=== PATIENT | female | born 1965 | race American Indian/Alaskan Native ===

== ENCOUNTER 2017-04-06 09:30 | Emergency (ER) | payer MEDICARE ==
[2017-04-06 09:46] VITALS: O2SAT 100
--- NOTE | 2017-04-06 10:38 | C.PDOC ---
History Of Present Illness 52 yo female w/PMHx of ESRD on HD (, , ), come in for evaluation of Left sided left neck pain gradually developed for past 3 days. Pt sts, pain is localized, " fells like tightness, spasm" over left occipital area extends down to left upper back and worse with head rotation. Pt sts, "today woke up and was unable to turn my head due to pain". Otherwise, pt denies any known trauma or injury, fever, chills, headache, dizziness, vertigo, CP, SOB, dyspnea, diaphoresis, palpitation, abd. pain, N/V, denies weakness, sensory or vascular deficits to B/L UEs. At present time, appears in pain. Time Seen by Provider: 04/06/17 09:47 Chief Complaint (Nursing): Upper Extremity Problem/Injury History Per: Patient Onset/Duration Of Symptoms: Gradual Past Medical History Reviewed: Historical Data, Nursing Documentation, Vital Signs Vital Signs: Last Vital Signs Temp 98.3 F 04/06/17 12:25 Pulse 70 04/06/17 12:25 Resp 16 04/06/17 12:25 BP 158/76 H 04/06/17 12:25 Pulse Ox 100 04/06/17 12:28 - Medical History PMH: Asthma, HTN, End Stage Renal Disease (HD T/R/), Chronic Kidney Disease Surgical History: Family History: States: Unknown Family Hx - Social History Hx Tobacco Use: No Hx Alcohol Use: No Hx Substance Use: No - Immunization History Hx Tetanus Toxoid Vaccination: No Hx Influenza Vaccination: Yes Hx Pneumococcal Vaccination: Yes Review Of Systems Except As Marked, All Systems Reviewed And Found Negative. Constitutional: Negative for: Fever, Chills Eyes: Negative for: Vision Change ENT: Negative for: Throat Pain Cardiovascular: Negative for: Chest Pain, Palpitations, Orthopnea, Paroxysmal Noc. Dyspnea, Edema, Light Headedness Respiratory: Negative for: Cough, Shortness of Breath, Wheezing Gastrointestinal: Negative for: Nausea, Vomiting, Abdominal Pain Musculoskeletal: Positive for: Neck Pain Skin: Negative for: Rash, Bruising Neurological: Negative for: Weakness, Numbness, Altered Mental Status, Dizziness Physical Exam - Physical Exam Appears: Well, Non-toxic, No Acute Distress Skin: Normal Color, Warm, No Rash Head: Normacephalic Eye(s): bilateral: PERRL Oral Mucosa: Moist Neck: Decreased ROM (to B/L sides due to pain), Trachea Midline, No Midline Cervical Tenderness, Paracervical Tenderness (diffuse left sided extends rom left occipital area down to left upepr back with moderate muscle spasm . No midline tenderness, no skin changes.), No Step Off Deformity, Supple Cardiovascular: Rhythm Regular, No JVD, Other ((-) carotid bruits B/L) Respiratory: No Decreased Breath Sounds, No Accessory Muscle Use, No Stridor, No Wheezing Gastrointestinal/Abdominal: Soft Extremity: Normal ROM (B/L UEs), No Pedal Edema, No Swelling, Other (Left upper arm AV shunt, (+) thrill, clean, dry, intact.) Neurological/Psych: Oriented x3, Normal Speech, Normal Motor, Normal Sensation, Normal Reflexes ED Course And Treatment O2 Sat by Pulse Oximetry: 100 Pulse Ox Interpretation: Normal - Other Rad C-spine X-Ray: Viewed By Me Interpretation: (+)DJD, mod, no acute fx or sublux Progress Note: On re-eval, pt is afebrile, hemodynamicaly stable. Pt reports, moderate improvement after ED treatment. Non-toxic. PuslEOx 100% RA. ENT: No acute findings. neck: Supple, (-) JVD, (-) carotid bruits B/L. Exam c/w Left sided acute torticolis. CVS: (+)S1S2, reg. Lungs: CTA B/L, BS equal B/L. Neuorlogicaly intact. Imaging review and appears without acute abnoramlities. Soft C-collar applied. Pt advised and ref. to f/u with PMD in 1-2 days for re- eavl. return to ED if any worsening ro new changes. Disposition Counseled Patient/Family Regarding: Studies Performed, Diagnosis, Need For Followup, Rx Given - Disposition Referrals: Indra Orantes MD [Staff Provider] - Disposition: HOME/ ROUTINE Disposition Time: 11:55 Condition: STABLE Additional Instructions: CERVICAL COLLAR FOR 1WEEK TAKE PAIN MEDICATION PRESCRIBED FOLLOW UP WITH PMD IN 2-3 DAYS FOR RE-EVALUATION. RETURN TO ED IF ANY WORSENING OR NEW CHANGES. Prescriptions: Methocarbamol [Robaxin] 500 mg PO TID #14 tab traMADol [Ultram] 50 mg PO TID #7 tab Instructions: Cervical Sprain (ED) Forms: [employer] ([place]) - Clinical Impression Clinical Impression: Torticollis, acute
[2017-04-06 12:27] VITALS: BP 158/76; PULSE 70; RESP 16; TEMP 98.3
--- NOTE | 2017-04-06 13:22 | RAD ---
PROCEDURE: Cervical Spine Radiographs. HISTORY: Pain. COMPARISON: None. FINDINGS: BONES: Alignment maintained. No fracture. Dens Intact. DISC SPACES: Mild multilevel spondylosis appears limited to the midcervical spine. SOFT TISSUES: Normal. No prevertebral soft tissue swelling. OTHER FINDINGS: Heterotopic bone posterior to C2 and C3 spinous processes. IMPRESSION: Limited degenerative changes seen as discussed above at the mid cervical spine without fracture or spondylolisthesis appreciable grossly. CT or MRI are available follow-up if clinically warranted. Heterotopic bone is seen posterior to the C2 and C3 spinous processes.
== END 2017-04-06 12:45 | disposition home or self-care (01) ==
LOC: C.ER 09:30
DX: M43.6 Torticollis (principal)

== ENCOUNTER 2017-08-09 06:09 | Day surgery (SDC) | payer MEDICARE ==
[2017-08-06 10:17] VITALS: BMI 20.9
[2017-08-09 09:06] LABS: BASO % 0.8 % (0.0-2.0); EOS # 0.2 K/uL (0.0-0.7); EOS % 2.7 % (0.0-4.0); HEMOGLOBIN 10.8 g/dL (11.0-16.0); LYMPH # 2.4 K/uL (1.0-4.3); LYMPH % 39.4 % (20.0-40.0); MEAN CELL VOLUME 97.1 fL (81.0-99.0); MEAN CORPUSCULAR HEMOGLOBIN 32.7 pg (27.0-31.0); MEAN CORPUSCULAR HGB CONC 33.7 g/dL (33.0-37.0); MEAN PLATELET VOLUME 9.5 fL (7.2-11.7); MONO # 0.6 K/uL (0.0-0.8); MONO % 9.3 % (0.0-10.0); NEUT % 47.8 % (50.0-75.0); RBC 3.32 Mil/uL (3.80-5.20); RED CELL DISTRIBUTION WIDTH 15.9 % (11.5-14.5); WHITE BLOOD COUNT 6.2 K/uL (4.8-10.8)
[2017-08-09 09:18] LABS: CALCIUM 8.2 mg/dl (8.6-10.4)
[2017-08-09] MEDS ORDERED: Midazolam 2 MG/2 ML VIAL ONE ×3 (09:41→09:42)
[2017-08-09] MEDS ORDERED: Iodixanol 320 MG/ML 200 ML BOTTLE IV ONE (09:42)
[2017-08-09] MEDS ORDERED: Iodixanol 320 MG/ML 100 ML BOTTLE IV ONE ×3 (09:42→11:31)
[2017-08-09] MEDS ORDERED: Lidocaine 2% Inj (20ml) ONE (09:42)
[2017-08-09] MEDS ORDERED: Morphine 4 MG/ML VIAL IV ONE (14:30)
[2017-08-09 17:28] VITALS: BP 123/69; PULSE 74; RESP 19; TEMP 97.6; O2SAT 100
--- NOTE | 2017-08-09 22:48 | CARDCATH ---
PROCEDURE DATE: 08/09/2017 INDICATIONS: Ms. Evy Landis is a 52-year-old female with a history of hypertension, CKD, referred to dc for evaluation of symptoms of severe claudication of left lower extremity with a Duplex scan showing severe popliteal lesion. She underwent angiogram with PSYCHOLOGIST CHIEF stenting of left distal SFA and popliteal with deployment of 6.0 x 60 mm Zilver PTX drug-eluting stent, lesion reduction from 80% down to 0% and STONE-3 flow, 6-Anguillan right femoral arterial access, and Mynx closure device for hemostasis. PROCEDURE PERFORMED: Distal abdominal aortogram with bilateral iliac runoff, selective bilateral iliofemoral angiogram with runoff, PSYCHOLOGIST CHIEF stenting of left SFA popliteal with the use of 6 x 60 mm Zilver PTX drug-eluting stent, lesion reduction from 80% down to 0% and STONE-3 flow, 6-Anguillan right femoral arterial access, and Mynx closure device for hemostasis. TECHNIQUES OF PROCEDURE: After obtaining informed consent, the patient was brought to the cardiac cath suite in post-absorptive, non-sedated state. The patient was prepped and draped in the usual sterile fashion. Then, 2% lidocaine was used for infiltration of anesthesia. Using modified Seldinger technique, a 6-Anguillan sheath was introduced into the right femoral artery. Right iliofemoral angiogram with runoff was performed. Subsequently, over a Roadrunner wire, a Contra catheter was advanced into the abdominal aorta. Abdominal aortogram with bilateral iliac runoff was performed. Subsequently, the Contra was advanced across the aortoiliac bifurcation to the left common femoral artery. Digital subtraction angiographic views of the left SFA, left popliteal, left [id number], and left foot profile was obtained. Subsequently, a Bozeman catheter was advanced over the Roadrunner UniGlide wire to the left popliteal artery and then selective popliteal angiograms were obtained. Angiographic findings of the right lower extremity, right common iliac and external iliac were patent. Right profunda femoris was patent. SFA patent with slow flow secondary to calcified vessel. Profunda SFA patent popliteal, infrapopliteal 65% stenosis, AT had distal 90%, proximal 80%, peroneal patent, PT diffuse long disease. Left common iliac and external iliac patent. Left profunda femoris patent. SFA patent with the distal SFA at the popliteal segment has 85% angiographic stenosis with 100 mm pressure gradient across it. Anterior tibial artery had mid 50% stenosis. Peroneal occluded, PT diffusely diseased, AT mid and distal has 70% to 80% stenosis. Dorsalis pedis occluded with collateral flow, superficial and deep plantar arches flow via the collaterals. Intervention performed, left popliteal wire and post dilated with 6 x 20 balloon. RECOMMENDATIONS: The patient is to keep on dual antiplatelet therapy. If she has recurrent symptoms, consider staged intervention of left anterior tibial artery below the knee intervention and reevaluate for right popliteal and right AMY lesions in 4 to [address] you [address] Jarvis for letting me to participate in the care of your patient. Braulio Bear MD
== END 2017-08-09 17:15 | disposition home or self-care (01) ==
LOC: C.SDS 06:09
PROVIDERS: ATTEND Internal Medicine Interventional Cardiology
DX: I70.212 Atherosclerosis of native arteries of extremities with intermittent claudication, left leg (principal); Z79.899 Other long term (current) drug therapy; Z87.891 Personal history of nicotine dependence; I12.0 Hypertensive chronic kidney disease with stage 5 chronic kidney disease or end stage renal disease; N18.6 End stage renal disease
CPT/HCPCS: 36247; 36415; 37226; 80048; 84702; 85025; J1170; J1644; J2250; J2270; J3010; Q9966; Q9967

== ENCOUNTER 2018-05-29 18:35 | Inpatient (IN) | payer MEDICAID, MEDICARE ==
[2018-05-29 18:36] VITALS: BMI 20.9
--- NOTE | 2018-05-29 19:14 | C.PDOC ---
History Of Present Illness 53 y/o female, who is on dialysis and has an old right arm AV fistula, presents to ED complaining of pain in the area for the past couple of days. Patient states that last dialysis was yesterday. Since pain started, patient noticed some pointing and tenderness, which prompted her to come in to ER. Otherwise she denies any other physical complaints. Time Seen by Provider: 05/29/18 19:14 Chief Complaint (Nursing): Upper Extremity Problem/Injury History Per: Patient History/Exam Limitations: no limitations Onset/Duration Of Symptoms: Days Current Symptoms Are (Timing): Still Present Past Medical History Reviewed: Historical Data, Nursing Documentation, Vital Signs Vital Signs: Last Vital Signs Temp 97.9 F 05/29/18 18:43 Pulse 80 05/29/18 18:43 Resp 18 05/29/18 18:43 BP 173/89 H 05/29/18 18:43 Pulse Ox 100 05/29/18 18:43 - Medical History PMH: Anemia, Asthma, HTN, End Stage Renal Disease (HD T/R/Sa), Chronic Kidney Disease Surgical History: Endoscopy, Family History: States: No Known Family Hx - Social History Hx Tobacco Use: No Hx Alcohol Use: No Hx Substance Use: No - Immunization History Hx Tetanus Toxoid Vaccination: No Hx Influenza Vaccination: Yes Hx Pneumococcal Vaccination: Yes Review Of Systems Except As Marked, All Systems Reviewed And Found Negative. Constitutional: Negative for: Fever, Chills Cardiovascular: Negative for: Chest Pain Respiratory: Negative for: Shortness of Breath Musculoskeletal: Positive for: Arm Pain (Right) Skin: Negative for: Rash Physical Exam - Physical Exam Appears: Non-toxic, No Acute Distress Skin: Warm, Dry, Other (Abscess forming in fistula area, warm and tender to palpation; has pointing but no drainage) Head: Atraumatic, Normacephalic Eye(s): bilateral: Normal Inspection Oral Mucosa: Moist Neck: Supple Cardiovascular: Rhythm Regular, No Murmur Respiratory: Normal Breath Sounds, No Rales, No Rhonchi, No Wheezing Extremity: Bilateral: Normal ROM Neurological/Psych: Oriented x3, Normal Speech, Normal Motor, Normal Sensation ED Course And Treatment - Laboratory Results Result Diagrams: 05/29/18 20:49 05/29/18 20:49 O2 Sat by Pulse Oximetry: 100 (RA) Pulse Ox Interpretation: Normal Progress Note: Bloodwork ordered. Percocet and vancomycin administered. Called surgical services coordinator who came and examined patient at bedside and contacted Dr. Cool. Discussed case with Dr. Cool who requested patient to be admitted to medical team. Discussed with Dr. Ventura who was the hospitalist police matron, who accepted patient to his service. Disposition - Disposition Disposition: HOSPITALIZED Disposition Time: 20:22 Condition: FAIR - Clinical Impression Clinical Impression: Dialysis AV fistula infection - PA / PUBLIC RELATIONS WRITER / Resident Statement MD/DO has reviewed & agrees with the documentation as recorded. - Scribe Statement The provider has reviewed the documentation as recorded by the Scribe Renay Chase All medical record entries made by the [place]vir[place]ie were at my direction and personally dictated by me. I have reviewed the chart and agree that the record accurately reflects my personal performance of the history, physical exam, medical decision making, and the department course for this patient. I have also personally directed, reviewed, and agree with the discharge instructions and disposition. Decision To Admit - Pt Status Changed To: Hospital Disposition Of: Inpatient - Admit Certification Admit to Inpatient:: After my assessment, the patient will require hospitalization for at least two midnights. This is because of the severity of symptoms shown, intensity of services needed, and/or the medical risk in this patient being treated as an outpatient. - InPatient: Physician Admission Certification: I certify that this patient requires 2 or more midnights of care for the following reason:: Patient will need IV antibiotics and surgical treatment - . Bed Request Type: Regular Admitting Physician: En Ventura Patient Diagnosis: Dialysis AV fistula infection
[2018-05-29] MEDS ORDERED: Vancomycin 1 GM 1 GM/250 ML BAG IV STA (20:14)
[2018-05-29] MEDS ORDERED: Oxycodone/Acetaminophen 5/325 mg Tab ONE (20:49)
[2018-05-29] MEDS ORDERED: Vancomycin 1 GM 1 GM/250 ML BAG IVPB ONE (20:52)
[2018-05-29 20:59] LABS: BASO % 0.5 % (0.0-2.0); EOS # 0.1 K/uL (0.0-0.7); EOS % 1.1 % (0.0-4.0); HEMOGLOBIN 10.4 g/dL (11.0-16.0); LYMPH # 1.6 K/uL (1.0-4.3); LYMPH % 22.9 % (20.0-40.0); MEAN CELL VOLUME 94.6 fL (81.0-99.0); MEAN CORPUSCULAR HEMOGLOBIN 31.2 pg (27.0-31.0); MEAN PLATELET VOLUME 8.7 fL (7.2-11.7); MONO # 0.5 K/uL (0.0-0.8); MONO % 7.6 % (0.0-10.0); NEUT # 4.7 K/uL (1.8-7.0); NEUT % 67.9 % (50.0-75.0); RBC 3.33 Mil/uL (3.80-5.20); RED CELL DISTRIBUTION WIDTH 15.9 % (11.5-14.5)
[2018-05-29 21:06] LABS: INR 1.2; PROTHROMBIN TIME 13.2 SECONDS (9.7-12.2)
[2018-05-29] MEDS ORDERED: Oxycodone/Acetaminophen 5/325 mg Tab PO STA (21:11)
[2018-05-29 21:17] LABS: ALB/GLOB RATIO 1.4 (1.0-2.1); ALBUMIN 4.7 g/dL (3.5-5.0); CALCIUM 7.3 mg/dl (8.6-10.4)
[2018-05-29] MEDS ORDERED: Sodium Chloride 0.9% 1,000 ML IV SCH (21:30)
[2018-05-29] MEDS ORDERED: Sodium Chloride 0.9% 1,000 ML ONE (22:44)
[2018-05-29] MEDS ORDERED: Albuterol HFA 90 mcg/actuation (8 g) IH PRN (23:08)
--- NOTE | 2018-05-30 00:09 | CP.PCM.HP ---
<Afshan Hahn Y - Last Filed: 05/29/18 23:54> History of Present Illness - History of Present Illness History of Present Illness: cc: "my old AVF hurts" Ms. Landis is a 53 year old female PMH ESRD, arthritis, hypertension, asthma, scoliosis comes in today for increasing pain at an old right arm AVF x4 days. She noticed there was a pimple like growth about a week ago. On Carmen, 4 days ago, she knocked the tip. A scab fell off without bleeding or pus. Since then, another scab formed over the opening, but the area has been increasingly painful to a 8/10 today. The area that has been tender to touch has grown from just the scab to about a 2cm diameter. She has no other physical complaints. Denies fever, chills, nausea, vomiting, constipation, diarrhea, chest pain, shortness of breath, headache. She follows a e/Carmen/Sat HD schedule and last had dialysis on Sat as scheduled. PMD: Dr. Mario Vaz PMH: ESRD x 2 kidney transplants, arthritis, HTN, asthma, scoliosis Med: Plavix, ASA, Carvedilol, Calcitriol, Phoslo, Percocet all at unknown dosages. Amlodipine recently stopped All: Latex - unknown reaction PSxHx: Kidney transplants (1998, 2008), 1985, Parathyroidectomy, Femoral stent FamHx: Father-DM, sister-DM, sister- from AIDS, Mom-alcohol abuse, breast CA on both sides of the family SocHx: quit smoking 23 years ago, smoked 2.5 ppd. Denies alcohol, illicit drugs. 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 Proxy: Son John Landis cell: [phone], home: [phone] Full Code Present on Admission - Present on Admission Any Indicators Present on Admission: No Review of Systems - Constitutional Constitutional: absent: Chills, Excessive Sweating, Fever, Headache, Lethargy, Malaise, Weakness - EENT Eyes: absent: Blind Spots, Blurred Vision, Diplopia, Dry Eye, Pain Ears: absent: Decreased Hearing, Tinnitus, Dizziness Nose/Mouth/Throat: absent: Nasal Discharge, Sinus Pressure, Bleeding Gums, Dry Mouth, Dysphagia, Hoarsness, Odynophagia, Sore Throat, Throat Swelling, Neck Pain - Cardiovascular Cardiovascular: Dyspnea on Exertion. absent: Chest Pain, Chest Pain with Activity, Diaphoresis, Dyspnea, Edema, Irregular Heart Rhythm, Pain Radiating to Arm/Neck/Jaw, Leg Edema, Lightheadedness, Orthopnea, Palpitations, Pedal Edema, Syncope - Respiratory Respiratory: Dyspnea on Exertion. absent: Cough, Dyspnea, Wheezing - Gastrointestinal Gastrointestinal: absent: Abdominal Pain, Belching, Bloating, Change in Bowel Habits, Constipation, Cramping, Diarrhea, Dyspepsia, Dysphagia, Nausea, Odynophagia, Vomiting - Genitourinary Additional comments: ESRD, does not urinate - Integumentary Integumentary: Wounds. absent: Dry Skin, Lesions, Photosensitivity, Rash, Sores - Neurological Neurological: absent: Abnormal Hearing, Disequilibrium, Dizziness, Numbness, Headaches, Paresthesias, Syncope, Tingling, Vertigo, Weakness - Psychiatric Psychiatric: absent: Anxiety, Depression - Endocrine Endocrine: absent: Cold Intolorance, Fatigue, Heat Intolorance, Palpitations - Hematologic/Lymphatic Hematologic: absent: Easy Bleeding, Easy Bruising Past Patient History - Past Medical History & Family History Past Medical History?: Yes Pertinent Family History: Father-DM, sister-DM, sister- from AIDS, Mom-alcohol abuse, breast CA on both sides of the family - Past Social History Smoking Status: Former Smoker Alcohol: None Drugs: Denies - CARDIAC Hx Hypertension: Yes - PULMONARY Hx Asthma: Yes - NEUROLOGICAL Hx Neurological Disorder: No - HEENT Hx HEENT Problems: No - RENAL Hx Chronic Kidney Disease: Yes - ENDOCRINE/METABOLIC Hx Endocrine Disorders: No - HEMATOLOGICAL/ONCOLOGICAL Hx Anemia: Yes - INTEGUMENTARY Hx Dermatological Problems: Yes (DISCOLORED LOWER EXTREMITIES) - MUSCULOSKELETAL/RHEUMATOLOGICAL Hx Musculoskeletal Disorders: Yes (MUSCLE SPASMS NECK) Hx Osteoarthritis: Yes Other/Comment: SCIOLOSIS - GASTROINTESTINAL Hx Gastrointestinal Disorders: No - GENITOURINARY/GYNECOLOGICAL Hx Genitourinary Disorders: Yes (ANURIA) - PSYCHIATRIC Hx Substance Use: No - SURGICAL HISTORY Hx Surgeries: Yes Hx Kidney Transplant: Yes (X 2) Hx Vascular Surgery: Yes (FISTULA LEFT ARM) Hx Vascular Access Device: Yes Other/Comment: FISTULA RIGHT ARM - ANESTHESIA Hx Anesthesia: Yes Hx Anesthesia Reactions: No Hx Malignant Hyperthermia: No Meds Allergies/Adverse Reactions: Allergies Allergy/AdvReac Type Severity Reaction Status Date / Time latex Allergy Intermediate RASH Verified 05/29/18 18:42 Physical Exam - Constitutional Appears: Well, Non-toxic - Head Exam Head Exam: ATRAUMATIC, NORMOCEPHALIC - Eye Exam Eye Exam: EOMI, Normal appearance, PERRL Pupil Exam: NORMAL ACCOMODATION Additional comments: glasses - ENT Exam ENT Exam: Mucous Membranes Dry - Neck Exam Neck exam: Negative for: Lymphadenopathy, Thyromegaly - Respiratory Exam Respiratory Exam: NORMAL BREATHING PATTERN. absent: Accessory Muscle Use, Rhonchi, Wheezes Additional comments: mild rales at R lung base - Cardiovascular Exam Cardiovascular Exam: REGULAR RHYTHM, +S1, +S2 Additional comments: audible bruit and palpable thrill in L AVF - GI/Abdominal Exam GI & Abdominal Exam: Normal Bowel Sounds, Soft. absent: Distended, Firm, Guarding, Rigid, Tenderness - Extremities Exam Extremities exam: Positive for: normal capillary refill, pedal pulses present. Negative for: calf tenderness, joint swelling, tenderness Additional comments: peripheral pulses palpable bilaterally (radial, DP, PT) two old R arm AVF, matured L arm AVF - Back Exam Back exam: absent: CVA tenderness (L), CVA tenderness (R) - Neurological Exam Neurological exam: Alert, CN II-XII Intact, Oriented x3 - Psychiatric Exam Psychiatric exam: Normal Affect, Normal Mood - Skin Skin Exam: Dry, Normal Color, Warm Additional comments: hands and feet cold to touch two bumps on R forearm. more proximal bump has edema, without erythema. Head has encased fluid buildup, TTP Results - Vital Signs Recent Vital Signs: Last Vital Signs Temp 98.6 F 05/29/18 22:35 Pulse 76 05/29/18 22:35 Resp 18 05/29/18 22:35 BP 133/73 05/29/18 22:35 Pulse Ox 99 05/29/18 22:35 - Labs Result Diagrams: 05/29/18 20:49 05/29/18 20:49 Labs: Laboratory Results - last 24 hr 05/29/18 05/29/18 05/29/18 20:49 20:49 20:49 WBC 7.0 RBC 3.33 L Hgb 10.4 L Hct 31.5 L MCV 94.6 D MCH 31.2 H MCHC 33.0 RDW 15.9 H Plt Count 146 MPV 8.7 Neut % (Auto) 67.9 Lymph % (Auto) 22.9 [place] % (Auto) 7.6 Eos % (Auto) 1.1 Baso % (Auto) 0.5 Neut # (Auto) 4.7 Lymph # (Auto) 1.6 [place] # (Auto) 0.5 Eos # (Auto) 0.1 Baso # (Auto) 0.0 PT 13.2 H INR 1.2 APTT 37 H Sodium 140 Potassium 4.8 Chloride 93 L Carbon Dioxide 24 Anion Gap 28 H BUN 54 H Creatinine 8.2 H* Est GFR ( Amer) 6 Est GFR (Non-Af Amer) 5 Random Glucose 113 H Calcium 7.3 L Total Bilirubin 0.6 AST 19 ALT 20 Alkaline Phosphatase 60 Total Protein 8.1 Albumin 4.7 Globulin 3.3 Albumin/Globulin Ratio 1.4 Assessment & Plan - Assessment and Plan (Free Text) Assessment: 53yo F PMH ESRD s/p kidney transplant x2, arthritis, h ypertension, asthma, scoliosis admitted for abscess of old R arm AVF. Plan: Abscess of old R arm AVF - WBC 7.0 - PT 13.2 INR 1.2 PTT 37 - BUN 54 Cr 8.2 - Vanco 1g IVPB daily (started 05/29 in ED) - NS@75 - f/u EKG and CXR for Sx clearance - f/u blood Cx (05/29) - Vasc Surgery consulted: Dr. Cool - help appreciated - NPO@MN for OR in AM ESRD - Patient is on TTS HD schedule - Nephro consulted: Dr. Orantes - help appreciated Hypertension - home Carvedilol - home Amlodipine recently discontinued by PMD - call [facility] to confirm dosing of medications - monitor vitals Arthritis - home Percocet 1 tab po qid prn - call [facility] to confirm dosing Asthma - home Ventolin prn PPx - DVT: AC CI for vascular bleed and OR mireille, SCDs - GI: not indicated at this time - Diet: NPO@MN except meds for OR in AM d/w Dr. Audrey Hahn PGY-1 - Date & Time Date: 05/29/18 Time: 21:30 <En Ventura - Last Filed: 05/30/18 06:23> Results - Vital Signs Recent Vital Signs: Last Vital Signs Temp 98 F 05/30/18 02:31 Pulse 70 05/30/18 02:31 Resp 18 05/30/18 02:31 BP 136/69 05/30/18 02:31 Pulse Ox 99 05/30/18 02:31 - Labs Result Diagrams: 05/29/18 20:49 05/29/18 20:49 Labs: Laboratory Results - last 24 hr 05/29/18 05/29/18 05/29/18 20:49 20:49 20:49 WBC 7.0 RBC 3.33 L Hgb 10.4 L Hct 31.5 L MCV 94.6 D MCH 31.2 H MCHC 33.0 RDW 15.9 H Plt Count 146 MPV 8.7 Neut % (Auto) 67.9 Lymph % (Auto) 22.9 [place] % (Auto) 7.6 Eos % (Auto) 1.1 Baso % (Auto) 0.5 Neut # (Auto) 4.7 Lymph # (Auto) 1.6 [place] # (Auto) 0.5 Eos # (Auto) 0.1 Baso # (Auto) 0.0 PT 13.2 H INR 1.2 APTT 37 H Sodium 140 Potassium 4.8 Chloride 93 L Carbon Dioxide 24 Anion Gap 28 H BUN 54 H Creatinine 8.2 H* Est GFR ( Amer) 6 Est GFR (Non-Af Amer) 5 Random Glucose 113 H Calcium 7.3 L Total Bilirubin 0.6 AST 19 ALT 20 Alkaline Phosphatase 60 Total Protein 8.1 Albumin 4.7 Globulin 3.3 Albumin/Globulin Ratio 1.4 Assessment & Plan - Date & Time Date: 05/30/18 (I have seen and examined the patient. I agree with the findings and plan of care as documented by Dr. Hahn. Patient with abscess at AV fistula site. Consult to Dr. Cool. Kermito for now. ESRD on dialysis. Consult to nephro. History of hypertension. Continue home meds. Monitor for acute changes.) Time: 06:22 Attending/Attestation - Attestation I have personally seen and examined this patient.: Yes I have fully participated in the care of the patient.: Yes I have reviewed all pertinent clinical information: Yes
[2018-05-30] MEDS ORDERED: Oxycodone/Acetaminophen 5/325 mg Tab ONE ×2 (02:31→08:26)
[2018-05-30] MEDS: Oxycodone/Acetaminophen 5/325 mg Tab PO PRN ×2 (02:33→08:30)
--- NOTE | 2018-05-30 05:13 | CP.PCM.CON ---
History of Present Illness - History of Present Illness History of Present Illness: Vascular Surgery Consult Note for Dr. Cool cc:Infected unused AVF This is a 53F with a PMH of ESRD, arthritis, hypertension, asthma, scoliosis she presented due to a 4 day history of pain and fluctuance of her right non functional AVF. The pain started about a week ago she noticed a smal break on the skin on the skin with a scab.l she accidentally unroofed the scab andthe leasion came to a head. She reports significantly increased tenderness at the site. She denies any discharge fevers chills chest pain or SOB. PMH: ESRD x 2 kidney transplants, arthritis, HTN, asthma, scoliosis PSH: Kidney transplants (1998, 2008), 1985, Parathyroidectomy, Femoral stent All: Latex Social: quit smoking 23 years ago, smoked 2.5 ppd. Denies other vices Review of Systems - Review of Systems Review of Systems: 12 point review of symptoms conducted and negative except for where discussed above Past Patient History - Past Medical History & Family History Past Medical History?: Yes - Past Social History Smoking Status: Former Smoker Alcohol: None Drugs: Denies - CARDIAC Hx Hypertension: Yes - PULMONARY Hx Asthma: Yes - NEUROLOGICAL Hx Neurological Disorder: No - HEENT Hx HEENT Problems: No - RENAL Hx Chronic Kidney Disease: Yes - ENDOCRINE/METABOLIC Hx Endocrine Disorders: No - HEMATOLOGICAL/ONCOLOGICAL Hx Anemia: Yes - INTEGUMENTARY Hx Dermatological Problems: Yes (DISCOLORED LOWER EXTREMITIES) - MUSCULOSKELETAL/RHEUMATOLOGICAL Hx Musculoskeletal Disorders: Yes (MUSCLE SPASMS NECK) Hx Osteoarthritis: Yes Other/Comment: SCIOLOSIS - GASTROINTESTINAL Hx Gastrointestinal Disorders: No - GENITOURINARY/GYNECOLOGICAL Hx Genitourinary Disorders: Yes (ANURIA) - PSYCHIATRIC Hx Substance Use: No - SURGICAL HISTORY Hx Surgeries: Yes Hx Kidney Transplant: Yes (X 2) Hx Vascular Surgery: Yes (FISTULA LEFT ARM) Hx Vascular Access Device: Yes Other/Comment: FISTULA RIGHT ARM - ANESTHESIA Hx Anesthesia: Yes Hx Anesthesia Reactions: No Hx Malignant Hyperthermia: No Meds Allergies/Adverse Reactions: Allergies Allergy/AdvReac Type Severity Reaction Status Date / Time latex Allergy Intermediate RASH Verified 05/29/18 18:42 - Medications Medications: Current Medications Albuterol (Ventolin Hfa 90 Mcg/Actuation (8 G)) 2 puff IH RBID PRN PRN Reason: Shortness of Breath Carvedilol (Coreg) 12.5 mg PO DAILY ARACELI Sodium Chloride (Sodium Chloride 0.9%) 1,000 mls @ 75 mls/hr IV .[id number] ARACELI Last Admin: 05/29/18 22:30 Dose: 75 mls/hr Vancomycin HCl 1 gm/ Sodium (Chloride) 250 mls @ 166.7 mls/hr IVPB Q24H ARACELI; Protocol Oxycodone/Acetaminophen (Percocet 5/325 Mg Tab) 1 tab PO QID PRN PRN Reason: Pain Stop: 06/01/18 23:09 Last Admin: 05/30/18 02:33 Dose: 1 tab Physical Exam - Constitutional Appears: Non-toxic, No Acute Distress - Head Exam Head Exam: ATRAUMATIC, NORMOCEPHALIC - Eye Exam Eye Exam: EOMI - ENT Exam ENT Exam: Mucous Membranes Moist - Respiratory Exam Respiratory Exam: NORMAL BREATHING PATTERN - Cardiovascular Exam Cardiovascular Exam: +S1, +S2 - GI/Abdominal Exam GI & Abdominal Exam: Soft. absent: Distended, Firm, Guarding, Tenderness - Extremities Exam Additional comments: NBA avf with thrill, XANDER avf with no thrill, fluctuant and tender - Neurological Exam Neurological exam: Alert, Oriented x3 - Psychiatric Exam Psychiatric exam: Normal Affect, Normal Mood Results - Vital Signs Recent Vital Signs: Last Vital Signs Temp 98 F 05/30/18 02:31 Pulse 70 05/30/18 02:31 Resp 18 05/30/18 02:31 BP 136/69 05/30/18 02:31 Pulse Ox 99 05/30/18 02:31 - Labs Result Diagrams: 05/29/18 20:49 05/29/18 20:49 Labs: Laboratory Results - last 24 hr 05/29/18 05/29/18 05/29/18 20:49 20:49 20:49 WBC 7.0 RBC 3.33 L Hgb 10.4 L Hct 31.5 L MCV 94.6 D MCH 31.2 H MCHC 33.0 RDW 15.9 H Plt Count 146 MPV 8.7 Neut % (Auto) 67.9 Lymph % (Auto) 22.9 Coal % (Auto) 7.6 Eos % (Auto) 1.1 Baso % (Auto) 0.5 Neut # (Auto) 4.7 Lymph # (Auto) 1.6 Coal # (Auto) 0.5 Eos # (Auto) 0.1 Baso # (Auto) 0.0 PT 13.2 H INR 1.2 APTT 37 H Sodium 140 Potassium 4.8 Chloride 93 L Carbon Dioxide 24 Anion Gap 28 H BUN 54 H Creatinine 8.2 H* Est GFR ( Amer) 6 Est GFR (Non-Af Amer) 5 Random Glucose 113 H Calcium 7.3 L Total Bilirubin 0.6 AST 19 ALT 20 Alkaline Phosphatase 60 Total Protein 8.1 Albumin 4.7 Globulin 3.3 Albumin/Globulin Ratio 1.4 Assessment & Plan - Assessment and Plan (Free Text) Assessment: 53F with infected AVF NPO past midnight Removal of old AVF D/W with Dr. Silvina Marques PGY3
[2018-05-30 07:02] LABS: BASO % 0.8 % (0.0-2.0); EOS # 0.1 K/uL (0.0-0.7); EOS % 1.9 % (0.0-4.0); HEMOGLOBIN 9.3 g/dL (11.0-16.0); LYMPH # 1.2 K/uL (1.0-4.3); LYMPH % 27.4 % (20.0-40.0); MEAN CELL VOLUME 94.3 fL (81.0-99.0); MEAN CORPUSCULAR HEMOGLOBIN 30.7 pg (27.0-31.0); MEAN CORPUSCULAR HGB CONC 32.6 g/dL (33.0-37.0); MEAN PLATELET VOLUME 8.1 fL (7.2-11.7); MONO # 0.4 K/uL (0.0-0.8); MONO % 10.1 % (0.0-10.0); NEUT # 2.6 K/uL (1.8-7.0); NEUT % 59.8 % (50.0-75.0); RBC 3.02 Mil/uL (3.80-5.20); RED CELL DISTRIBUTION WIDTH 16.3 % (11.5-14.5); WHITE BLOOD COUNT 4.3 K/uL (4.8-10.8)
[2018-05-30 08:10] LABS: ALB/GLOB RATIO 1.3 (1.0-2.1); ALBUMIN 3.7 g/dL (3.5-5.0); CALCIUM 7.3 mg/dl (8.6-10.4)
--- NOTE | 2018-05-30 08:16 | CP.PCM.PN ---
<Dayanna Mello - Last Filed: 05/30/18 18:36> Subjective - Date & Time of Evaluation Date of Evaluation: 05/30/18 Time of Evaluation: 09:10 - Subjective Subjective: PGY-1 Dayanna Mello D.O. Medicine progress note for Dr. Ruiz's service: Patient was seen and examined this morning. She is complaining of significant pain at the site of the abscesses on her R forearm where her old AVF is. Percocet helps initially but then wears off. Patient reports last HD was Sat and she never misses a day. Denies fevers and chills. Plan for OR for I&D this afternoon. Objective - Vital Signs/Intake and Output Vital Signs (last 24 hours): Temp Pulse Resp BP Pulse Ox 98.0 F 69 18 177/89 H 100 05/30/18 06:30 05/30/18 06:30 05/30/18 06:30 05/30/18 06:30 05/30/18 06:30 - Medications Medications: Current Medications Albuterol (Ventolin Hfa 90 Mcg/Actuation (8 G)) 2 puff IH RBID PRN PRN Reason: Shortness of Breath Carvedilol (Coreg) 12.5 mg PO DAILY ARACELI Sodium Chloride (Sodium Chloride 0.9%) 1,000 mls @ 75 mls/hr IV .[id number] ARACELI Last Admin: 05/29/18 22:30 Dose: 75 mls/hr Vancomycin HCl 1 gm/ Sodium (Chloride) 250 mls @ 166.7 mls/hr IVPB Q24H ARACELI; Protocol Oxycodone/Acetaminophen (Percocet 5/325 Mg Tab) 1 tab PO QID PRN PRN Reason: Pain Stop: 06/01/18 23:09 Last Admin: 05/30/18 02:33 Dose: 1 tab - Labs Labs: 05/30/18 06:59 05/30/18 06:59 PT 13.2 SECONDS (9.7-12.2) H 05/29/18 20:49 INR 1.2 05/29/18 20:49 APTT 37 SECONDS (21-34) H 05/29/18 20:49 - Constitutional Appears: No Acute Distress - Head Exam Head Exam: ATRAUMATIC, NORMAL INSPECTION - Eye Exam Eye Exam: EOMI, Normal appearance, PERRL - ENT Exam ENT Exam: Mucous Membranes Moist - Neck Exam Neck Exam: Normal Inspection - Respiratory Exam Respiratory Exam: Clear to Ausculation Bilateral, NORMAL BREATHING PATTERN - Cardiovascular Exam Cardiovascular Exam: REGULAR RHYTHM, +S1, +S2 - GI/Abdominal Exam GI & Abdominal Exam: Soft, Normal Bowel Sounds. absent: Tenderness - Rectal Exam Rectal Exam: Deferred - Extremities Exam Extremities Exam: absent: Pedal Edema Additional comments: 3x3 cm abscess on L forearm, 2x2 cm area of induration inferior to abscess LUE AVF - Neurological Exam Neurological Exam: Alert, CN II-XII Intact, Oriented x3 Neuro motor strength exam: Left Upper Extremity: 5, Right Upper Extremity: 4 (due to pain), Left Lower Extremity: 5, Right Lower Extremity: 5 - Psychiatric Exam Psychiatric exam: Normal Affect, Normal Mood - Skin Skin Exam: Dry, Intact, Normal Color, Warm Assessment and Plan - Assessment and Plan (Free Text) Assessment: Patient is a 53 yo female with a history of ESRD s/p 2 failed transplants with HD on TTS who presents with infection of nonfunctioning RUE AVF. Plan for OR this afternoon. Plan: Infection of nonfunctioning RUE AVF - Afebrile, no leukocytosis - Blood Cx pending - F/u pathology from surgery - Vancomycin 1 g IV TTS- started 05/29 - Morphine 2 mg IV Q4H PRN - Surgery consulted (Silvina)- OR today for I&D End stage renal disease HD on TTS- s/p 2 failed renal transplants (1998, 2008) - HD tomorrow - NPO for surgery then renal diet - Nephrology consulted (Lamberto) Hypertension - Monitor vitals Q4H - Coreg 12.5 mg PO BID Asthma - Albuterol 2 puffs BID PRN - Maintain spO2 >92%- supplemental O2 PRN Osteoarthritis - Percocet 1 tab Q4H PRN Ppx: VTE: SCDs, hold chemical anticoag pending OR GI: not indicated Code status: full code Case was discussed with attending, Dr. Ruiz. <Kristopher Ruiz - Last Filed: 05/31/18 07:16> Objective - Vital Signs/Intake and Output Vital Signs (last 24 hours): Temp Pulse Resp BP Pulse Ox 99 F 72 20 126/60 95 05/30/18 23:54 05/30/18 23:54 05/30/18 23:54 05/30/18 23:54 05/30/18 23:54 Intake and Output: 05/31/18 05/31/18 06:59 18:59 Intake Total 540 Balance 540 - Medications Medications: Current Medications Albuterol (Ventolin Hfa 90 Mcg/Actuation (8 G)) 2 puff IH RBID PRN PRN Reason: Shortness of Breath Carvedilol (Coreg) 12.5 mg PO BID ARACELI Last Admin: 05/30/18 19:00 Dose: Not Given Vancomycin/Sodium Chloride (Vancomycin 1 Gm/Ns 200 Ml) 1 gm in 200 mls @ 166.7 mls/hr IVPB TTS ARACELI; Protocol Stop: 06/05/18 10:01 Morphine Sulfate (Morphine) 2 mg IVP Q4 PRN PRN Reason: Pain, severe (8-10) Last Admin: 05/30/18 22:20 Dose: 2 mg Oxycodone/Acetaminophen (Percocet 5/325 Mg Tab) 1 tab PO Q4 PRN PRN Reason: Pain, moderate (4-7) Stop: 06/02/18 16:01 Last Admin: 05/31/18 00:48 Dose: 1 tab Pneumococcal Polyvalent Vaccine (Pneumovax 23 Vaccine) 0.5 ml IM .ONCE ONE Stop: 05/31/18 10:01 - Labs Labs: 05/30/18 06:59 05/30/18 06:59 PT 13.2 SECONDS (9.7-12.2) H 05/29/18 20:49 INR 1.2 05/29/18 20:49 APTT 37 SECONDS (21-34) H 05/29/18 20:49 Attending/Attestation - Attestation I have personally seen and examined this patient.: Yes I have fully participated in the care of the patient.: Yes I have reviewed all pertinent clinical information, including history, physical exam and plan: Yes Notes (Text): Medical attending: Patient was seen and examined by me. Agree with the above note by the resident The patient was not in any acute distress however has had signifigant pain from the area of swelling from the old AVF site. Her last HD was on Wednesday She was pending going to the OR later in the day. She is already on IV abx and when we saw her we also added on morphine for pain. Kristopher Ruiz
--- NOTE | 2018-05-30 09:41 | RAD ---
Date of service: 05/30/2018 HISTORY: pre-op clearance COMPARISON: 01/21/2015 01/23/2015 FINDINGS: LUNGS: No active pulmonary disease. PLEURA: No significant pleural effusion identified, no pneumothorax apparent. CARDIOVASCULAR: No aortic atherosclerotic calcification present. Normal cardiac size. No pulmonary vascular congestion. OSSEOUS STRUCTURES: No significant abnormalities. VISUALIZED UPPER ABDOMEN: Normal. OTHER FINDINGS: None. IMPRESSION: No active disease.
[2018-05-30] MEDS ORDERED: Sod Polystyrene Sulf 15 gm/60 ml Susp PO ONE (11:25)
--- NOTE | 2018-05-30 11:43 | CARD ---
APPROVED REPORT Date of service: 05/30/2018 EKG Measurement Heart [id number] IL 186P [id number] <Conclusion> Normal sinus rhythm Low voltage QRS Prolonged QT Abnormal ECG
[2018-05-30] MEDS ORDERED: DiphenhydrAMINE 50 mg/ml Inj IVP ONE (12:00)
[2018-05-30] MEDS ORDERED: DiphenhydrAMINE 50 mg/ml Inj ONE (12:10)
--- NOTE | 2018-05-30 13:31 | CP.PCM.CON ---
History of Present Illness - History of Present Illness History of Present Illness: Ms. Landis is a 53 year old female PMH ESRD, arthritis, hypertension, asthma, scoliosis comes in today for increasing pain at an old right arm AVF x4 days. She noticed there was a pimple like growth about a week ago. On Carmen, 4 days ago, she knocked the tip. A scab fell off without bleeding or pus. Since then, another scab formed over the opening, but the area has been increasingly painful to a 8/10 today. The area that has been tender to touch has grown from just the scab to about a 2cm diameter. She has no other physical complaints. Denies fever, chills, nausea, vomiting, constipation, diarrhea, chest pain, shortness of breath, headache. She follows a Wed/Wed/Wed HD schedule and last had dialysis on Sat as scheduled. PMD: Dr. Mario Vaz PMH: ESRD x 2 kidney transplants- both failed, arthritis, HTN, asthma, scoliosis, severe hyperparathyroidism post PTX Med: Plavix, ASA, Carvedilol, Calcitriol, Phoslo, Percocet all at unknown dosages. Amlodipine recently stopped All: Latex - unknown reaction PSxHx: Kidney transplants (1998, 2008), 1985, Parathyroidectomy, Femoral stent FamHx: Father-DM, sister-DM, sister- from AIDS, Mom-alcohol abuse, breast CA on both sides of the family SocHx: quit smoking 23 years ago, smoked 2.5 ppd. Denies alcohol, illicit drugs. 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 Proxy: Son John Landis cell: [phone], home: [phone] Full Code Review of Systems - Constitutional Constitutional: Lethargy, Weakness - EENT Eyes: absent: As Per HPI, Blind Spots, Blurred Vision, Change in Vision, Decreased Night Vision, Diplopia, Discharge, Dry Eye, Exophthalmos, Floaters, Irritation, Itchy Eyes, Loss of Peripheral Vision, Pain, Photophobia, Requires Corrective Lenses, Sees Flashes, Spots in Vision, Tunnel Vision, Other Visual Disturbances, Loss of Vision, Other Ears: absent: As Per HPI, Decreased Hearing, Ear Discharge, Ear Pain, Tinnitus, Abnormal Hearing, Disequilibrium, Dizziness, Other Nose/Mouth/Throat: absent: As Per HPI, Epistaxis, Nasal Congestion, Nasal Discharge, Nasal Obstruction, Nasal Trauma, Nose Pain, Post Nasal Drip, Sinus Pain, Sinus Pressure, Bleeding Gums, Change in Voice, Dental Pain, Dry Mouth, Dysphagia, Halitosis, Hoarsness, Lip Swelling, Mouth Lesions, Mouth Pain, Odynophagia, Sore Throat, Throat Swelling, Tongue Swelling, Facial Pain, Neck Pain, Neck Mass, Other - Cardiovascular Cardiovascular: Dyspnea on Exertion, Palpitations - Respiratory Respiratory: Dyspnea on Exertion - Gastrointestinal Gastrointestinal: absent: As Per HPI, Abdominal Pain, Belching, Bloating, Change in Bowel Habits, Change in Stool Character, Coffee Ground Emesis, Constipation, Cramping, Diarrhea, Dyspepsia, Dysphagia, Early Satiety, Excessive Flatus, Fecal Incontinence, Heartburn, Hematemesis, Hematochezia, Loose Stools, Melena, Nausea, Odynophagia, Temesmus, Vomiting, Other - Genitourinary Genitourinary: As Per HPI - Musculoskeletal Musculoskeletal: Muscle Weakness, Myalgias - Neurological Neurological: Weakness Past Patient History - Past Medical History & Family History Past Medical History?: Yes Past Family History: Reviewed and not pertinent - Past Social History Smoking Status: Former Smoker Chewing Tobacco Use: No Cigar Use: No Alcohol: None Drugs: Denies Home Situation {Lives}: With Family - CARDIAC Hx Hypertension: Yes - PULMONARY Hx Asthma: Yes - NEUROLOGICAL Hx Neurological Disorder: No - HEENT Hx HEENT Problems: No - RENAL Hx Chronic Kidney Disease: Yes - ENDOCRINE/METABOLIC Hx Endocrine Disorders: No - HEMATOLOGICAL/ONCOLOGICAL Hx Anemia: Yes - INTEGUMENTARY Hx Dermatological Problems: Yes (DISCOLORED LOWER EXTREMITIES) - MUSCULOSKELETAL/RHEUMATOLOGICAL Hx Musculoskeletal Disorders: Yes (MUSCLE SPASMS NECK) Hx Osteoarthritis: Yes Other/Comment: SCIOLOSIS - GASTROINTESTINAL Hx Gastrointestinal Disorders: No - GENITOURINARY/GYNECOLOGICAL Hx Genitourinary Disorders: Yes (ANURIA) - PSYCHIATRIC Hx Substance Use: No - SURGICAL HISTORY Hx Surgeries: Yes Hx Kidney Transplant: Yes (X 2) Hx Vascular Surgery: Yes (FISTULA LEFT ARM) Hx Vascular Access Device: Yes Other/Comment: FISTULA RIGHT ARM - ANESTHESIA Hx Anesthesia: Yes Hx Anesthesia Reactions: No Hx Malignant Hyperthermia: No Meds Allergies/Adverse Reactions: Allergies Allergy/AdvReac Type Severity Reaction Status Date / Time latex Allergy Intermediate RASH Verified 05/29/18 18:42 - Medications Medications: Current Medications Albuterol (Ventolin Hfa 90 Mcg/Actuation (8 G)) 2 puff IH RBID PRN PRN Reason: Shortness of Breath Carvedilol (Coreg) 12.5 mg PO BID ARACELI Sodium Chloride (Sodium Chloride 0.9%) 1,000 mls @ 75 mls/hr IV .[id number] ARACELI Last Admin: 05/29/18 22:30 Dose: 75 mls/hr Vancomycin/Sodium Chloride (Vancomycin 1 Gm/Ns 200 Ml) 1 gm in 200 mls @ 166.7 mls/hr IVPB TTS ARACELI; Protocol Stop: 06/05/18 10:01 Morphine Sulfate (Morphine) 2 mg IVP Q4 PRN PRN Reason: Pain, severe (8-10) Last Admin: 05/30/18 12:20 Dose: 2 mg Oxycodone/Acetaminophen (Percocet 5/325 Mg Tab) 1 tab PO QID PRN PRN Reason: Pain Stop: 06/01/18 23:09 Last Admin: 05/30/18 08:30 Dose: 1 tab Physical Exam - Constitutional Appears: No Acute Distress, Chronically Ill - Head Exam Head Exam: ATRAUMATIC, NORMAL INSPECTION - Eye Exam Eye Exam: EOMI, Normal appearance - Neck Exam Neck exam: Positive for: Normal Inspection. Negative for: Tenderness - Respiratory Exam Respiratory Exam: Clear to Auscultation Bilateral, NORMAL BREATHING PATTERN - Cardiovascular Exam Cardiovascular Exam: REGULAR RHYTHM, +S1 - GI/Abdominal Exam GI & Abdominal Exam: Soft - Extremities Exam Extremities exam: Positive for: normal inspection. Negative for: pedal edema - Neurological Exam Neurological exam: Alert, CN II-XII Intact, Oriented x3 - Skin Skin Exam: Dry, Warm Results - Vital Signs Recent Vital Signs: Last Vital Signs Temp 98.3 F 05/30/18 08:30 Pulse 68 05/30/18 08:30 Resp 18 05/30/18 08:30 BP 182/84 H 05/30/18 08:30 Pulse Ox 100 05/30/18 08:30 - Labs Result Diagrams: 05/30/18 06:59 05/30/18 06:59 Labs: Laboratory Results - last 24 hr 05/29/18 05/29/18 05/29/18 20:49 20:49 20:49 WBC 7.0 RBC 3.33 L Hgb 10.4 L Hct 31.5 L MCV 94.6 D MCH 31.2 H MCHC 33.0 RDW 15.9 H Plt Count 146 MPV 8.7 Neut % (Auto) 67.9 Lymph % (Auto) 22.9 Dixon % (Auto) 7.6 Eos % (Auto) 1.1 Baso % (Auto) 0.5 Neut # (Auto) 4.7 Lymph # (Auto) 1.6 Dixon # (Auto) 0.5 Eos # (Auto) 0.1 Baso # (Auto) 0.0 Differential Comment PT 13.2 H INR 1.2 APTT 37 H Sodium 140 Potassium 4.8 Chloride 93 L Carbon Dioxide 24 Anion Gap 28 H BUN 54 H Creatinine 8.2 H* Est GFR ( Amer) 6 Est GFR (Non-Af Amer) 5 Random Glucose 113 H Calcium 7.3 L Phosphorus Magnesium Total Bilirubin 0.6 AST 19 ALT 20 Alkaline Phosphatase 60 Total Protein 8.1 Albumin 4.7 Globulin 3.3 Albumin/Globulin Ratio 1.4 05/30/18 05/30/18 06:59 06:59 WBC 4.3 L RBC 3.02 L Hgb 9.3 L Hct 28.5 L MCV 94.3 MCH 30.7 MCHC 32.6 L RDW 16.3 H Plt Count 114 L D MPV 8.1 Neut % (Auto) 59.8 Lymph % (Auto) 27.4 Dixon % (Auto) 10.1 H Eos % (Auto) 1.9 Baso % (Auto) 0.8 Neut # (Auto) 2.6 Lymph # (Auto) 1.2 Dixon # (Auto) 0.4 Eos # (Auto) 0.1 Baso # (Auto) 0.0 Differential Comment PT INR APTT Sodium 139 Potassium 5.3 H Chloride 97 L Carbon Dioxide 24 Anion Gap 23 H BUN 58 H Creatinine 8.9 H* Est GFR ( Amer) 6 Est GFR (Non-Af Amer) 5 Random Glucose 98 Calcium 7.3 L Phosphorus 6.6 H Magnesium 1.9 Total Bilirubin 0.5 AST 20 ALT 17 Alkaline Phosphatase 47 Total Protein 6.7 Albumin 3.7 Globulin 3.0 Albumin/Globulin Ratio 1.3 Assessment & Plan (1) ESRD (end stage renal disease) Status: Acute (2) Hyperparathyroidism due to end stage renal disease on dialysis Status: Acute (3) Dialysis AV fistula infection Status: Acute (4) COPD (chronic obstructive pulmonary disease) Status: Acute - Assessment and Plan (Free Text) Plan: dialysis today Resection infected thrombosed AV graft right UE
[2018-05-30] MEDS ORDERED: Propofol 10 mg/ml Inj (20 ML) ONE (14:10)
[2018-05-30] MEDS ORDERED: Midazolam 2 MG/2 ML VIAL ONE (14:10)
[2018-05-30] MEDS ORDERED: Neostigmine Methylsulfate 3mg/3ml Syringe IV ONE (15:07)
[2018-05-30] MEDS ORDERED: HYDROmorphone 0.5 mg/0.5 ml ISec IVP PRN (15:17)
--- NOTE | 2018-05-30 15:17 | PCM.SURG1 ---
Surgeon's Initial Post Op Note - Surgeon's Notes Surgeon: Dr. Cool User Interface Developer: Dr. Roxi Damico PGY 1, Rick Smart, CHRISSY III Type of Anesthesia: General Endo Pre-Operative Diagnosis: Infected right arm Av fistula Operative Findings: thrombosed pseudoaneurysm Post-Operative Diagnosis: same Operation Performed: excision of thrombosed infected AV fistula Specimen/Specimens Removed: Thrombosed pseudoaneurysm Estimated Blood Loss: EBL {In ML}: 25 Blood Products Given: N/A Drains Used: No Drains Post-Op Condition: Fair Date of Surgery/Procedure: 05/30/18 Time of Surgery/Procedure: 14:15
[2018-05-30] MEDS ORDERED: HYDROmorphone 0.5 mg/0.5 ml ISec ONE (18:36)
[2018-05-31] MEDS: Oxycodone/Acetaminophen 5/325 mg Tab PO PRN ×2 (00:48→14:56)
--- NOTE | 2018-05-31 01:20 | OP ---
PROCEDURE DATE: 05/30/2018 PREOPERATIVE DIAGNOSIS: Infected pseudoaneurysm, right forearm. PROCEDURE: Excision of infected fistula in right arm with multiple pseudoaneurysms. SURGEON: Matt Cool Jr., MD. SEED COLLECTOR: ____ ANESTHESIOLOGIST: Mr. Madden. INDICATIONS: The patient is a middle-aged woman with renal failure, presently dialyzed with left arm access, who presents with thrombosed fistula in her right arm and two large pseudoaneurysms in mid portion, which were dripping pus. OPERATIVE FINDINGS: 1. The fistula was already thrombosed. 2. The entire infected area was excised in one more incision, approximately 6 inches long. This was then cultured. Wound was irrigated, packed open, and then it was approximated in layer closure, but the skin was not closed tightly. Five clips were used to approximate the edges. We then obtained hemostasis again and then wrapped the dressing. Blood loss for procedure was less than 50 mL. OPERATION CARRIED OUT: Excision of infected fistula in right arm with multiple pseudoaneurysms. Matt Cool Jr., MD
--- NOTE | 2018-05-31 07:46 | CP.PCM.PN ---
<Dayanna Mello - Last Filed: 05/31/18 13:49> Subjective - Date & Time of Evaluation Date of Evaluation: 05/31/18 Time of Evaluation: 07:40 - Subjective Subjective: PGY-1 Dayanna Mello D.O. Medicine progress note for Dr. Ruiz's service: Patient was seen and examined this morning. She states that she was trying to hold off on taking pain meds but her surgery site was 10/10 severity. She has relief with morphine and Percocet. Additionally, she is complaining of sore throat. She is eating well. She is urinating without difficulty. She has not had a BM in 2 days but she states that she did not really eat much. She tolerated breakfast well. She is getting HD today. Objective - Vital Signs/Intake and Output Vital Signs (last 24 hours): Temp Pulse Resp BP Pulse Ox 99 F 72 20 126/60 95 05/30/18 23:54 05/30/18 23:54 05/30/18 23:54 05/30/18 23:54 05/30/18 23:54 Intake and Output: 05/31/18 05/31/18 06:59 18:59 Intake Total 540 Balance 540 - Medications Medications: Current Medications Albuterol (Ventolin Hfa 90 Mcg/Actuation (8 G)) 2 puff IH RBID PRN PRN Reason: Shortness of Breath Carvedilol (Coreg) 12.5 mg PO BID [facility] Last Admin: 05/30/18 19:00 Dose: Not Given Vancomycin/Sodium Chloride (Vancomycin 1 Gm/Ns 200 Ml) 1 gm in 200 mls @ 166.7 mls/hr IVPB TTS [facility]; Protocol Stop: 06/05/18 10:01 Morphine Sulfate (Morphine) 2 mg IVP Q4 PRN PRN Reason: Pain, severe (8-10) Last Admin: 05/30/18 22:20 Dose: 2 mg Oxycodone/Acetaminophen (Percocet 5/325 Mg Tab) 1 tab PO Q4 PRN PRN Reason: Pain, moderate (4-7) Stop: 06/02/18 16:01 Last Admin: 05/31/18 00:48 Dose: 1 tab Pneumococcal Polyvalent Vaccine (Pneumovax 23 Vaccine) 0.5 ml IM .ONCE ONE Stop: 05/31/18 10:01 - Labs Labs: 05/30/18 06:59 05/30/18 06:59 PT 13.2 SECONDS (9.7-12.2) H 05/29/18 20:49 INR 1.2 05/29/18 20:49 APTT 37 SECONDS (21-34) H 05/29/18 20:49 - Constitutional Appears: No Acute Distress - Head Exam Head Exam: ATRAUMATIC, NORMAL INSPECTION - Eye Exam Eye Exam: EOMI, Normal appearance - ENT Exam ENT Exam: Mucous Membranes Moist - Neck Exam Neck Exam: Normal Inspection - Respiratory Exam Respiratory Exam: Clear to Ausculation Bilateral, NORMAL BREATHING PATTERN. absent: Accessory Muscle Use, Respiratory Distress - Cardiovascular Exam Cardiovascular Exam: REGULAR RHYTHM, +S1, +S2 - GI/Abdominal Exam GI & Abdominal Exam: Soft. absent: Tenderness - Rectal Exam Rectal Exam: Deferred - Extremities Exam Additional comments: RUE wrapped in clean dry bandages LUE functioning AVF - Neurological Exam Neurological Exam: Alert, Awake, CN II-XII Intact, Oriented x3 - Psychiatric Exam Psychiatric exam: Normal Affect, Normal Mood - Skin Skin Exam: Dry, Normal Color, Warm Assessment and Plan - Assessment and Plan (Free Text) Assessment: Patient is a 53 yo female with a history of ESRD s/p 2 failed transplants with HD on TTS who presents with infection of nonfunctioning RUE AVF. POD1- I&D with removal of thrombosed AVF. Plan: Infection of nonfunctioning RUE AVF- POD1 excision of thrombosed infected AV fistula - Afebrile, no leukocytosis - Blood Cx no grwoth >24 hrs - F/u pathology from surgery - Vancomycin 1 g IV TTS- started 05/29 - Morphine 2 mg IV Q4H PRN - Surgery consulted (Silvina)- wait for Cx End stage renal disease HD on TTS- s/p 2 failed renal transplants (1998, 2008) - Procrit 6000 unit IV TTS - Renal diet - Nephrology consulted (Lamberto) Sore throat- likely due to intubation during surgery - Benzocaine/menthol lozenges Q4H PRN Hypertension - Monitor vitals Q4H - Coreg 12.5 mg PO BID Asthma - Albuterol 2 puffs BID PRN - Maintain spO2 >92%- supplemental O2 PRN Osteoarthritis - Percocet 1 tab Q4H PRN Ppx: VTE: SCDs, heparin 8000 units Q12H GI: not indicated Code status: full code Case was discussed with attending, Dr. Ruiz. <Kristopher Ruiz H - Last Filed: 05/31/18 15:06> Objective - Vital Signs/Intake and Output Vital Signs (last 24 hours): Temp Pulse Resp BP Pulse Ox 97.5 F L 74 18 194/77 H 94 L 05/31/18 09:35 05/31/18 09:35 05/31/18 09:35 05/31/18 12:05 05/31/18 07:00 Intake and Output: 05/31/18 05/31/18 06:59 18:59 Intake Total 540 Balance 540 - Medications Medications: Current Medications Albuterol (Ventolin Hfa 90 Mcg/Actuation (8 G)) 2 puff IH RBID PRN PRN Reason: Shortness of Breath Benzocaine/Menthol (Cepacol Sore Throat) 1 yamila MT Q4 PRN PRN Reason: Sore Throat Last Admin: 05/31/18 14:26 Dose: 1 yamila Carvedilol (Coreg) 12.5 mg PO BID [facility] Last Admin: 05/31/18 10:00 Dose: Not Given Epoetin Fermin (Procrit) 6,000 unit IV TTS [facility] Last Admin: 05/31/18 13:35 Dose: 6,000 unit Heparin Sodium (Porcine) (Heparin) 5,000 units SC Q12 [facility] Vancomycin/Sodium Chloride (Vancomycin 1 Gm/Ns 200 Ml) 1 gm in 200 mls @ 166.7 mls/hr IVPB TTS [facility]; Protocol Stop: 06/05/18 10:01 Last Admin: 05/31/18 14:13 Dose: 166.7 mls/hr Morphine Sulfate (Morphine) 2 mg IVP Q4 PRN PRN Reason: Pain, severe (8-10) Last Admin: 05/31/18 08:35 Dose: 2 mg Oxycodone/Acetaminophen (Percocet 5/325 Mg Tab) 1 tab PO Q4 PRN PRN Reason: Pain, moderate (4-7) Stop: 06/02/18 16:01 Last Admin: 05/31/18 14:56 Dose: 1 tab - Labs Labs: 05/31/18 10:40 05/31/18 10:40 PT 13.2 SECONDS (9.7-12.2) H 05/29/18 20:49 INR 1.2 05/29/18 20:49 APTT 37 SECONDS (21-34) H 05/29/18 20:49 Attending/Attestation - Attestation I have personally seen and examined this patient.: Yes I have fully participated in the care of the patient.: Yes I have reviewed all pertinent clinical information, including history, physical exam and plan: Yes Notes (Text): 05/31/18 15:03 Medical attending: Patient was seen and examined by me as well. Reviewed the above note by the medical registrar and agree with the above. We saw and examined the patient together. As reported above, the patient is now POD 1 of excision of the old thrombosed AVF. She reports continues to have pain however much less than previously. She gets HD on TTS and will be having HD later on this day Kristopher Ruiz
[2018-05-31] MEDS ORDERED: Pneumococcal 23-Valent Vaccine IM ONE (10:00)
--- NOTE | 2018-05-31 10:20 | CP.PCM.PN ---
Subjective - Date & Time of Evaluation Date of Evaluation: 05/31/18 Time of Evaluation: 10:18 - Subjective Subjective: seen and examined s/p resection of infected / thrombosed avf c/o chills during hd. afebrile c/o sore throat Objective - Vital Signs/Intake and Output Vital Signs (last 24 hours): Temp Pulse Resp BP Pulse Ox 99 F 72 20 126/60 95 05/30/18 23:54 05/30/18 23:54 05/30/18 23:54 05/30/18 23:54 05/30/18 23:54 Intake and Output: 05/31/18 05/31/18 06:59 18:59 Intake Total 540 Balance 540 - Medications Medications: Current Medications Albuterol (Ventolin Hfa 90 Mcg/Actuation (8 G)) 2 puff IH RBID PRN PRN Reason: Shortness of Breath Benzocaine/Menthol (Cepacol Sore Throat) 1 yamila MT Q4 PRN PRN Reason: Sore Throat Carvedilol (Coreg) 12.5 mg PO BID [facility] Last Admin: 05/30/18 19:00 Dose: Not Given Vancomycin/Sodium Chloride (Vancomycin 1 Gm/Ns 200 Ml) 1 gm in 200 mls @ 166.7 mls/hr IVPB TTS [facility]; Protocol Stop: 06/05/18 10:01 Morphine Sulfate (Morphine) 2 mg IVP Q4 PRN PRN Reason: Pain, severe (8-10) Last Admin: 05/31/18 08:35 Dose: 2 mg Oxycodone/Acetaminophen (Percocet 5/325 Mg Tab) 1 tab PO Q4 PRN PRN Reason: Pain, moderate (4-7) Stop: 06/02/18 16:01 Last Admin: 05/31/18 00:48 Dose: 1 tab - Labs Labs: 05/30/18 06:59 05/30/18 06:59 PT 13.2 SECONDS (9.7-12.2) H 05/29/18 20:49 INR 1.2 05/29/18 20:49 APTT 37 SECONDS (21-34) H 05/29/18 20:49 - Constitutional Appears: Non-toxic, No Acute Distress - Head Exam Head Exam: NORMAL INSPECTION, NORMOCEPHALIC - Eye Exam Eye Exam: Normal appearance, PERRL - ENT Exam ENT Exam: Mucous Membranes Moist, Normal Exam - Neck Exam Neck Exam: Full ROM, Normal Inspection - Respiratory Exam Respiratory Exam: Clear to Ausculation Bilateral, NORMAL BREATHING PATTERN - Cardiovascular Exam Cardiovascular Exam: REGULAR RHYTHM, RRR - GI/Abdominal Exam GI & Abdominal Exam: Distended, Soft - Extremities Exam Extremities Exam: Normal Inspection (rt arm dressing . lue avf) - Neurological Exam Neurological Exam: Alert, Awake, Oriented x3 - Psychiatric Exam Psychiatric exam: Normal Affect, Normal Mood - Skin Skin Exam: Dry, Intact Assessment and Plan (1) Dialysis AV fistula infection Status: Acute (2) ESRD (end stage renal disease) Status: Acute (3) COPD (chronic obstructive pulmonary disease) Status: Acute - Assessment and Plan (Free Text) Assessment: maintain hd use lue avf bp controlled hgb stable, jaqueline w/hd
[2018-05-31 10:49] LABS: BASO % 0.5 % (0.0-2.0); EOS # 0.1 K/uL (0.0-0.7); HEMOGLOBIN 9.3 g/dL (11.0-16.0); LYMPH # 1.2 K/uL (1.0-4.3); LYMPH % 15.9 % (20.0-40.0); MEAN CELL VOLUME 93.3 fL (81.0-99.0); MEAN CORPUSCULAR HEMOGLOBIN 31.1 pg (27.0-31.0); MEAN CORPUSCULAR HGB CONC 33.3 g/dL (33.0-37.0); MEAN PLATELET VOLUME 9.2 fL (7.2-11.7); MONO # 0.6 K/uL (0.0-0.8); MONO % 8.6 % (0.0-10.0); NEUT # 5.5 K/uL (1.8-7.0); RED CELL DISTRIBUTION WIDTH 15.4 % (11.5-14.5)
[2018-05-31 10:56] LABS: WHITE BLOOD COUNT 7.4 K/uL (4.8-10.8)
[2018-05-31 11:13] LABS: ALB/GLOB RATIO 1.2 (1.0-2.1); ALBUMIN 3.8 g/dL (3.5-5.0); CALCIUM 7.2 mg/dl (8.6-10.4)
--- NOTE | 2018-05-31 11:42 | CP.PCM.PN ---
Subjective - Date & Time of Evaluation Date of Evaluation: 05/31/18 Time of Evaluation: 11:39 - Subjective Subjective: Vascular Surgery Progress Note for Dr. Cool This 53F was seen and examined this AM at bedside no acute events reported overnight. She reports that her arm feels significantly better this AM. She denies any fevers chills chest pain or SOB. Objective - Vital Signs/Intake and Output Vital Signs (last 24 hours): Temp Pulse Resp BP Pulse Ox 97.5 F L 74 18 149/29 L 95 05/31/18 09:35 05/31/18 09:35 05/31/18 09:35 05/31/18 09:35 05/30/18 23:54 Intake and Output: 05/31/18 05/31/18 06:59 18:59 Intake Total 540 Balance 540 - Medications Medications: Current Medications Albuterol (Ventolin Hfa 90 Mcg/Actuation (8 G)) 2 puff IH RBID PRN PRN Reason: Shortness of Breath Benzocaine/Menthol (Cepacol Sore Throat) 1 yamila MT Q4 PRN PRN Reason: Sore Throat Carvedilol (Coreg) 12.5 mg PO BID [facility] Last Admin: 05/31/18 10:00 Dose: Not Given Epoetin Fermin (Procrit) 6,000 unit IV TTS [facility] Vancomycin/Sodium Chloride (Vancomycin 1 Gm/Ns 200 Ml) 1 gm in 200 mls @ 166.7 mls/hr IVPB TTS [facility]; Protocol Stop: 06/05/18 10:01 Morphine Sulfate (Morphine) 2 mg IVP Q4 PRN PRN Reason: Pain, severe (8-10) Last Admin: 05/31/18 08:35 Dose: 2 mg Oxycodone/Acetaminophen (Percocet 5/325 Mg Tab) 1 tab PO Q4 PRN PRN Reason: Pain, moderate (4-7) Stop: 06/02/18 16:01 Last Admin: 05/31/18 00:48 Dose: 1 tab - Labs Labs: 05/31/18 10:40 05/31/18 10:40 PT 13.2 SECONDS (9.7-12.2) H 05/29/18 20:49 INR 1.2 05/29/18 20:49 APTT 37 SECONDS (21-34) H 05/29/18 20:49 - Constitutional Appears: Non-toxic, No Acute Distress - Head Exam Head Exam: ATRAUMATIC, NORMOCEPHALIC - Eye Exam Eye Exam: EOMI - ENT Exam ENT Exam: Mucous Membranes Moist - Respiratory Exam Respiratory Exam: NORMAL BREATHING PATTERN - Cardiovascular Exam Cardiovascular Exam: +S1, +S2 - GI/Abdominal Exam GI & Abdominal Exam: Soft. absent: Firm, Guarding, Rigid, Tenderness - Extremities Exam Additional comments: Dressing clean dry and intact - Neurological Exam Neurological Exam: Alert, Awake - Psychiatric Exam Psychiatric exam: Normal Affect, Normal Mood - Skin Skin Exam: Dry, Intact Assessment and Plan - Assessment and Plan (Free Text) Assessment: 53F s/p removal of infected avf on the right arm Followup cultures Once antibiotic choice and duration is determined patient can begin d/c planning D/W Dr. Silvina Marques PGY3
[2018-05-31] MEDS: Epoetin Alfa Dialysis 3000 UNIT/ML Inj IV SCH (13:35)
[2018-05-31] MEDS: Vancomycin 1 gm/NS 200 ml 1 GM/200 ML BAG IVPB SCH (14:13)
[2018-05-31] MEDS: Benzocaine/Menthol (Cepacol) Lozenge MT PRN ×2 (14:26→21:25)
[2018-06-01] MEDS: Oxycodone/Acetaminophen 5/325 mg Tab PO PRN ×2 (03:55→16:05)
--- NOTE | 2018-06-01 07:03 | CP.PCM.PN ---
<Dayanna Mello - Last Filed: 06/01/18 20:25> Subjective - Date & Time of Evaluation Date of Evaluation: 06/01/18 Time of Evaluation: 09:00 - Subjective Subjective: PGY-1 Dayanna Mello D.O. Medicine progress note for Dr. Ruiz's service: Patient was seen and examined this morning. She is POD2 removal of thrombosed old AVF in R arm. Last night, patient complained of R knee pain and noticed swelling. The pain of both her R arm and leg are well controlled with pain meds. Patient is eating and sleeping well. Objective - Vital Signs/Intake and Output Vital Signs (last 24 hours): Temp Pulse Resp BP Pulse Ox 99.7 F H 83 20 92/48 L 98 06/01/18 00:00 06/01/18 00:00 06/01/18 00:00 06/01/18 00:00 06/01/18 00:00 Intake and Output: 06/01/18 06/01/18 06:59 18:59 Intake Total 350 Output Total 0 Balance 350 - Medications Medications: Current Medications Albuterol (Ventolin Hfa 90 Mcg/Actuation (8 G)) 2 puff IH RBID PRN PRN Reason: Shortness of Breath Benzocaine/Menthol (Cepacol Sore Throat) 1 yamila MT Q4 PRN PRN Reason: Sore Throat Last Admin: 05/31/18 21:25 Dose: 1 yamila Carvedilol (Coreg) 12.5 mg PO BID [facility] Last Admin: 05/31/18 17:48 Dose: 12.5 mg Epoetin Fermin (Procrit) 6,000 unit IV TTS [facility] Last Admin: 05/31/18 13:35 Dose: 6,000 unit Heparin Sodium (Porcine) (Heparin) 5,000 units SC Q12 [facility] Last Admin: 05/31/18 21:24 Dose: 5,000 units Vancomycin/Sodium Chloride (Vancomycin 1 Gm/Ns 200 Ml) 1 gm in 200 mls @ 166.7 mls/hr IVPB TTS [facility]; Protocol Stop: 06/05/18 10:01 Last Admin: 05/31/18 14:13 Dose: 166.7 mls/hr Morphine Sulfate (Morphine) 2 mg IVP Q4 PRN PRN Reason: Pain, severe (8-10) Last Admin: 05/31/18 19:51 Dose: 2 mg Oxycodone/Acetaminophen (Percocet 5/325 Mg Tab) 1 tab PO Q4 PRN PRN Reason: Pain, moderate (4-7) Stop: 06/02/18 16:01 Last Admin: 06/01/18 03:55 Dose: 1 tab - Labs Labs: 05/31/18 10:40 05/31/18 10:40 PT 13.2 SECONDS (9.7-12.2) H 05/29/18 20:49 INR 1.2 05/29/18 20:49 APTT 37 SECONDS (21-34) H 05/29/18 20:49 - Constitutional Appears: No Acute Distress - Head Exam Head Exam: ATRAUMATIC, NORMAL INSPECTION - Eye Exam Eye Exam: EOMI, Normal appearance, PERRL - ENT Exam ENT Exam: Mucous Membranes Moist - Neck Exam Neck Exam: Normal Inspection - Respiratory Exam Respiratory Exam: Clear to Ausculation Bilateral, NORMAL BREATHING PATTERN. absent: Respiratory Distress - Cardiovascular Exam Cardiovascular Exam: REGULAR RHYTHM, +S1, +S2 - GI/Abdominal Exam GI & Abdominal Exam: Soft. absent: Tenderness - Rectal Exam Rectal Exam: Deferred - Extremities Exam Additional comments: small effusion on upper lateral knee R arm wrapped with clean, dry bandages (seen by surgery residents within the hour) - Neurological Exam Neurological Exam: Alert, Awake, CN II-XII Intact, Oriented x3 Neuro motor strength exam: Left Upper Extremity: 5, Right Upper Extremity: 5, Left Lower Extremity: 5, Right Lower Extremity: 5 - Psychiatric Exam Psychiatric exam: Normal Affect, Normal Mood - Skin Skin Exam: Normal Color, Warm Assessment and Plan - Assessment and Plan (Free Text) Assessment: Patient is a 53 yo female with a history of ESRD s/p 2 failed transplants with HD on TTS who presents with infection of nonfunctioning RUE AVF. POD2- I&D with removal of thrombosed AVF. New edema and pain of lateral R knee. Plan: Infection of nonfunctioning RUE AVF- POD1 excision of thrombosed infected AV fistula - Afebrile, no leukocytosis - Blood Cx no grwoth >48 hrs - Pathology from surgery- GNR - Start Zosyn 2.25 mg IV Q8H - Vancomycin 1 g IV TTS- started 05/29 - Morphine 2 mg IV Q6H PRN - Percocet 1 tab PO Q4H PRN - Toradol 30 mg IV Q6H PRN - Surgery consulted (Silvina)- wait for Cx R knee effusion- possibly gout - XR: small effusion and osteoarthritis - Uric acid pending - Start Solu-medrol 30 mg IV Q12H as per frances End stage renal disease HD on TTS- s/p 2 failed renal transplants (1998, 2008) - Procrit 6000 unit IV TTS - Renal diet - Nephrology consulted (Lamberto) Sore throat, improving- likely due to intubation during surgery - Benzocaine/menthol lozenges Q4H PRN Hypertension - Monitor vitals Q4H - Coreg 12.5 mg PO BID Asthma - Albuterol 2 puffs BID PRN - Maintain spO2 >92%- supplemental O2 PRN Osteoarthritis - Percocet 1 tab Q4H PRN Ppx: VTE: SCDs, heparin 8000 units Q12H GI: Pepcid 20 mg PO daily Code status: full code Case was discussed with attending, Dr. Ruiz. <Kristopher Ruiz - Last Filed: 06/02/18 07:23> Objective - Vital Signs/Intake and Output Vital Signs (last 24 hours): Temp Pulse Resp BP Pulse Ox 97.5 F L 59 L 18 97/59 L 95 06/02/18 05:19 06/02/18 05:19 06/02/18 05:19 06/02/18 05:19 06/02/18 00:00 Intake and Output: 06/02/18 06/02/18 06:59 18:59 Intake Total 300 Balance 300 - Medications Medications: Current Medications Albuterol (Ventolin Hfa 90 Mcg/Actuation (8 G)) 2 puff IH RBID PRN PRN Reason: Shortness of Breath Benzocaine/Menthol (Cepacol Sore Throat) 1 yamila MT Q4 PRN PRN Reason: Sore Throat Last Admin: 05/31/18 21:25 Dose: 1 yamila Calcium Acetate (Phoslo) 667 mg PO TIDCC [facility] Last Admin: 06/01/18 17:47 Dose: 667 mg Carvedilol (Coreg) 12.5 mg PO BID [facility] Last Admin: 06/01/18 17:46 Dose: 12.5 mg Epoetin Fermin (Procrit) 6,000 unit IV TTS [facility] Last Admin: 05/31/18 13:35 Dose: 6,000 unit Famotidine (Pepcid) 20 mg PO DAILY [facility] Heparin Sodium (Porcine) (Heparin) 5,000 units SC Q12 [facility] Last Admin: 06/01/18 21:10 Dose: 5,000 units Vancomycin/Sodium Chloride (Vancomycin 1 Gm/Ns 200 Ml) 1 gm in 200 mls @ 166.7 mls/hr IVPB TTS [facility]; Protocol Stop: 06/05/18 10:01 Last Admin: 05/31/18 14:13 Dose: 166.7 mls/hr Piperacillin Sod/Tazobactam Sod (Zosyn 2.25 Gm Iv Premix) 2.25 gm in 50 mls @ 100 mls/hr IVPB Q8H [facility]; Protocol Last Admin: 06/02/18 03:02 Dose: 100 mls/hr Ketorolac Tromethamine (Toradol) 30 mg IVP Q6 PRN PRN Reason: Pain, moderate (4-7) Last Admin: 06/01/18 21:13 Dose: 30 mg Methylprednisolone (Solu-Medrol) 30 mg IV Q12 [facility] Last Admin: 06/01/18 21:10 Dose: 30 mg Morphine Sulfate (Morphine) 2 mg IVP Q6 PRN PRN Reason: Pain, severe (8-10) Oxycodone/Acetaminophen (Percocet 5/325 Mg Tab) 1 tab PO Q4 PRN PRN Reason: Pain, moderate (4-7) Stop: 06/02/18 16:01 Last Admin: 06/01/18 16:05 Dose: 1 tab - Labs Labs: 06/01/18 07:03 06/01/18 07:03 PT 13.2 SECONDS (9.7-12.2) H 05/29/18 20:49 INR 1.2 05/29/18 20:49 APTT 37 SECONDS (21-34) H 05/29/18 20:49 Attending/Attestation - Attestation I have personally seen and examined this patient.: Yes I have fully participated in the care of the patient.: Yes I have reviewed all pertinent clinical information, including history, physical exam and plan: Yes Notes (Text): Medical attending : Patient was seen and examined by me. Agree with the above note by the resident and agree with the above The patient reported her arm was fine - however she reported that there was signifigant pain of the right knee and calf area. On exam it was tender to very light palpation and this pain made it diffcult for her to ambulate. Will check doppler studies. She says she had intervention on the left leg in the past for vascular disease. Will try toradol IV if she gets relief from this. Per nephrology it may also be gout and she was placed on solumedrol to see if this helps her. Kristopher Ruiz
[2018-06-01 07:15] LABS: BASO % 0.6 % (0.0-2.0); EOS % 0.6 % (0.0-4.0); HEMOGLOBIN 9.6 g/dL (11.0-16.0); LYMPH # 1.1 K/uL (1.0-4.3); LYMPH % 17.9 % (20.0-40.0); MEAN CELL VOLUME 93.7 fL (81.0-99.0); MEAN CORPUSCULAR HEMOGLOBIN 31.3 pg (27.0-31.0); MEAN CORPUSCULAR HGB CONC 33.4 g/dL (33.0-37.0); MEAN PLATELET VOLUME 8.8 fL (7.2-11.7); MONO # 0.7 K/uL (0.0-0.8); MONO % 10.9 % (0.0-10.0); NEUT # 4.4 K/uL (1.8-7.0); RBC 3.08 Mil/uL (3.80-5.20); RED CELL DISTRIBUTION WIDTH 15.4 % (11.5-14.5); WHITE BLOOD COUNT 6.2 K/uL (4.8-10.8)
[2018-06-01 07:43] LABS: ALB/GLOB RATIO 1.3 (1.0-2.1); ALBUMIN 3.9 g/dL (3.5-5.0); CALCIUM 7.7 mg/dl (8.6-10.4)
--- NOTE | 2018-06-01 08:37 | RAD ---
Date of service: 06/01/2018 PROCEDURE: Right Knee Radiographs. HISTORY: R knee swelling COMPARISON: None. FINDINGS: BONES: No acute fracture. JOINTS: Narrowing of the medial and patellofemoral joint compartments without articular erosion. Consistent with osteoarthritis. The lateral compartment is grossly preserved. JOINT EFFUSION: Small effusion noted in the suprapatellar bursa OTHER FINDINGS: None. IMPRESSION: Medial and patellofemoral osteoarthritis. Small joint effusion.
[2018-06-01] MEDS: Piperacill/Tazo 2.25gm in Dex 2.25 GM/50 ML BAG IVPB SCH ×2 (11:23→19:00)
--- NOTE | 2018-06-01 14:12 | CP.PCM.PN ---
Subjective - Date & Time of Evaluation Date of Evaluation: 06/01/18 Time of Evaluation: 14:09 - Subjective Subjective: s/p AV g ligation GNR in wound- on IV ABs Right knee swollen, painful- possibly gout Stable HD 05/31 Feels better otherwise Objective - Vital Signs/Intake and Output Vital Signs (last 24 hours): Temp Pulse Resp BP Pulse Ox 98.2 F 68 20 111/70 95 06/01/18 07:00 06/01/18 07:00 06/01/18 07:00 06/01/18 09:49 06/01/18 07:00 Intake and Output: 06/01/18 06/01/18 06:59 18:59 Intake Total 350 240 Output Total 0 0 Balance 350 240 - Medications Medications: Current Medications Albuterol (Ventolin Hfa 90 Mcg/Actuation (8 G)) 2 puff IH RBID PRN PRN Reason: Shortness of Breath Benzocaine/Menthol (Cepacol Sore Throat) 1 yamila MT Q4 PRN PRN Reason: Sore Throat Last Admin: 05/31/18 21:25 Dose: 1 yamila Calcium Acetate (Phoslo) 667 mg PO TID [facility] Carvedilol (Coreg) 12.5 mg PO BID [facility] Last Admin: 06/01/18 09:49 Dose: 12.5 mg Epoetin Fermin (Procrit) 6,000 unit IV TTS [facility] Last Admin: 05/31/18 13:35 Dose: 6,000 unit Heparin Sodium (Porcine) (Heparin) 5,000 units SC Q12 [facility] Last Admin: 06/01/18 09:48 Dose: 5,000 units Vancomycin/Sodium Chloride (Vancomycin 1 Gm/Ns 200 Ml) 1 gm in 200 mls @ 166.7 mls/hr IVPB TTS [facility]; Protocol Stop: 06/05/18 10:01 Last Admin: 05/31/18 14:13 Dose: 166.7 mls/hr Piperacillin Sod/Tazobactam Sod (Zosyn 2.25 Gm Iv Premix) 2.25 gm in 50 mls @ 100 mls/hr IVPB Q8H [facility]; Protocol Last Admin: 06/01/18 11:23 Dose: 100 mls/hr Ketorolac Tromethamine (Toradol) 30 mg IVP Q6 PRN PRN Reason: Pain, moderate (4-7) Methylprednisolone (Solu-Medrol) 30 mg IV Q12 [facility] Morphine Sulfate (Morphine) 2 mg IVP Q6 PRN PRN Reason: Pain, severe (8-10) Oxycodone/Acetaminophen (Percocet 5/325 Mg Tab) 1 tab PO Q4 PRN PRN Reason: Pain, moderate (4-7) Stop: 06/02/18 16:01 Last Admin: 06/01/18 03:55 Dose: 1 tab - Labs Labs: 06/01/18 07:03 06/01/18 07:03 PT 13.2 SECONDS (9.7-12.2) H 05/29/18 20:49 INR 1.2 05/29/18 20:49 APTT 37 SECONDS (21-34) H 05/29/18 20:49 - Constitutional Appears: No Acute Distress, Chronically Ill - Head Exam Head Exam: ATRAUMATIC, NORMAL INSPECTION - Eye Exam Eye Exam: EOMI, Normal appearance - Neck Exam Neck Exam: Normal Inspection. absent: Tenderness - Respiratory Exam Respiratory Exam: Clear to Ausculation Bilateral, NORMAL BREATHING PATTERN - Cardiovascular Exam Cardiovascular Exam: REGULAR RHYTHM, +S1 - GI/Abdominal Exam GI & Abdominal Exam: Soft. absent: Tenderness - Extremities Exam Extremities Exam: Normal Inspection. absent: Pedal Edema - Neurological Exam Neurological Exam: Alert, CN II-XII Intact - Skin Skin Exam: Dry, Warm Assessment and Plan (1) ESRD (end stage renal disease) Status: Acute (2) Hyperparathyroidism due to end stage renal disease on dialysis Status: Acute (3) Dialysis AV fistula infection Status: Acute (4) COPD (chronic obstructive pulmonary disease) Status: Acute - Assessment and Plan (Free Text) Plan: IV ABs Dialysis TTS Add phoslo Trial steroids for probable gouty arthritis
--- NOTE | 2018-06-01 16:42 | CP.PCM.PN ---
Subjective - Date & Time of Evaluation Date of Evaluation: 06/01/18 Time of Evaluation: 11:00 - Subjective Subjective: Vascular Surgery: Dr. Cool Pt seen and examined. No acute events overnight. States she feels better and pain is well controlled in the R arm. Pt denies any other complaints at this time. Denies N/V, fevers/chills. Objective - Vital Signs/Intake and Output Vital Signs (last 24 hours): Temp Pulse Resp BP Pulse Ox 99.4 F 86 20 95/56 L 98 06/01/18 16:00 06/01/18 16:00 06/01/18 16:00 06/01/18 16:00 06/01/18 16:00 Intake and Output: 06/01/18 06/01/18 06:59 18:59 Intake Total 350 640 Output Total 0 0 Balance 350 640 - Medications Medications: Current Medications Albuterol (Ventolin Hfa 90 Mcg/Actuation (8 G)) 2 puff IH RBID PRN PRN Reason: Shortness of Breath Benzocaine/Menthol (Cepacol Sore Throat) 1 yamila MT Q4 PRN PRN Reason: Sore Throat Last Admin: 05/31/18 21:25 Dose: 1 yamial Calcium Acetate (Phoslo) 667 mg PO TIDCC [facility] Carvedilol (Coreg) 12.5 mg PO BID [facility] Last Admin: 06/01/18 09:49 Dose: 12.5 mg Epoetin Fermin (Procrit) 6,000 unit IV TTS [facility] Last Admin: 05/31/18 13:35 Dose: 6,000 unit Heparin Sodium (Porcine) (Heparin) 5,000 units SC Q12 [facility] Last Admin: 06/01/18 09:48 Dose: 5,000 units Vancomycin/Sodium Chloride (Vancomycin 1 Gm/Ns 200 Ml) 1 gm in 200 mls @ 166.7 mls/hr IVPB TTS [facility]; Protocol Stop: 06/05/18 10:01 Last Admin: 05/31/18 14:13 Dose: 166.7 mls/hr Piperacillin Sod/Tazobactam Sod (Zosyn 2.25 Gm Iv Premix) 2.25 gm in 50 mls @ 100 mls/hr IVPB Q8H [facility]; Protocol Last Admin: 06/01/18 11:23 Dose: 100 mls/hr Ketorolac Tromethamine (Toradol) 30 mg IVP Q6 PRN PRN Reason: Pain, moderate (4-7) Methylprednisolone (Solu-Medrol) 30 mg IV Q12 [facility] Morphine Sulfate (Morphine) 2 mg IVP Q6 PRN PRN Reason: Pain, severe (8-10) Oxycodone/Acetaminophen (Percocet 5/325 Mg Tab) 1 tab PO Q4 PRN PRN Reason: Pain, moderate (4-7) Stop: 06/02/18 16:01 Last Admin: 06/01/18 03:55 Dose: 1 tab - Labs Labs: 06/01/18 07:03 06/01/18 07:03 PT 13.2 SECONDS (9.7-12.2) H 05/29/18 20:49 INR 1.2 05/29/18 20:49 APTT 37 SECONDS (21-34) H 05/29/18 20:49 - Constitutional Appears: Well, No Acute Distress - Head Exam Head Exam: ATRAUMATIC, NORMOCEPHALIC - ENT Exam ENT Exam: Mucous Membranes Moist - Respiratory Exam Respiratory Exam: NORMAL BREATHING PATTERN - Cardiovascular Exam Cardiovascular Exam: RRR - GI/Abdominal Exam GI & Abdominal Exam: Soft - Extremities Exam Additional comments: R arm with mauricio over incision; minimal drainage noted on dressing - Neurological Exam Neurological Exam: Alert, Awake, Oriented x3 - Skin Skin Exam: Dry, Warm Assessment and Plan - Assessment and Plan (Free Text) Assessment: 53F s/p excision of infected AVF/thrombectomy R arm; POD#2 Plan: - cont ABX per ID recs - ok to DC from surgical standpoint - f/u with Dr. Cool in 1 week for staple removal - d/w Dr. Silvina Gamble
[2018-06-01] MEDS: MethylPREDNISolone 40 mg Vial IV SCH (21:10)
[2018-06-02] MEDS: Piperacill/Tazo 2.25gm in Dex 2.25 GM/50 ML BAG IVPB SCH ×2 (03:02→11:50)
[2018-06-02 08:06] LABS: BASO % 0.5 % (0.0-2.0); EOS % 0.1 % (0.0-4.0); HEMOGLOBIN 9.4 g/dL (11.0-16.0); LYMPH # 0.3 K/uL (1.0-4.3); LYMPH % 7.7 % (20.0-40.0); MEAN CELL VOLUME 93.6 fL (81.0-99.0); MEAN CORPUSCULAR HEMOGLOBIN 31.3 pg (27.0-31.0); MEAN CORPUSCULAR HGB CONC 33.4 g/dL (33.0-37.0); MEAN PLATELET VOLUME 8.7 fL (7.2-11.7); MONO # 0.3 K/uL (0.0-0.8); MONO % 6.1 % (0.0-10.0); NEUT # 3.8 K/uL (1.8-7.0); NEUT % 85.6 % (50.0-75.0); NRBC % 0.1 % (0.0-2.0); PLATELET COUNT 135 K/uL (130-400); RBC 2.99 Mil/uL (3.80-5.20); RED CELL DISTRIBUTION WIDTH 15.4 % (11.5-14.5); WHITE BLOOD COUNT 4.5 K/uL (4.8-10.8)
[2018-06-02 09:01] LABS: ALB/GLOB RATIO 1.2 (1.0-2.1); ALBUMIN 3.7 g/dL (3.5-5.0); CALCIUM 7.3 mg/dl (8.6-10.4)
[2018-06-02 09:46] LABS: LYMPHOCYTE 7 % (20-40); MONOCYTE 4 % (0-10); NEUTROPHIL 89 % (50-75); PLATELET ESTIMATE NORMAL (NORMAL); TOTAL CELLS COUNTED 100
[2018-06-02 09:47] LABS: ANISOCYTOSIS SLIGHT; HYPOCHROMIC SLIGHT; POIKILOCYTOSIS SLIGHT; TARGET CELLS SLIGHT
[2018-06-02] MEDS ORDERED: Epoetin Alfa Dialysis 3000 UNIT/ML Inj IV SCH (10:00)
--- NOTE | 2018-06-02 10:05 | CP.PCM.PN ---
Subjective - Date & Time of Evaluation Date of Evaluation: 06/02/18 Time of Evaluation: 10:03 - Subjective Subjective: Knee much improved No more fevers On IV ABs for GNR wound For dialysis today Objective - Vital Signs/Intake and Output Vital Signs (last 24 hours): Temp Pulse Resp BP Pulse Ox 97.4 F L 62 20 96/55 L 100 06/02/18 07:32 06/02/18 07:32 06/02/18 07:32 06/02/18 07:32 06/02/18 07:32 Intake and Output: 06/02/18 06/02/18 06:59 18:59 Intake Total 300 Balance 300 - Medications Medications: Current Medications Albuterol (Ventolin Hfa 90 Mcg/Actuation (8 G)) 2 puff IH RBID PRN PRN Reason: Shortness of Breath Benzocaine/Menthol (Cepacol Sore Throat) 1 yamila MT Q4 PRN PRN Reason: Sore Throat Last Admin: 05/31/18 21:25 Dose: 1 yamila Calcium Acetate (Phoslo) 667 mg PO TIDCC [facility] Last Admin: 06/02/18 08:27 Dose: 667 mg Carvedilol (Coreg) 12.5 mg PO BID [facility] Last Admin: 06/01/18 17:46 Dose: 12.5 mg Epoetin Fermin (Procrit) 6,000 unit IV TTS [facility] Last Admin: 05/31/18 13:35 Dose: 6,000 unit Famotidine (Pepcid) 20 mg PO DAILY [facility] Heparin Sodium (Porcine) (Heparin) 5,000 units SC Q12 [facility] Last Admin: 06/01/18 21:10 Dose: 5,000 units Vancomycin/Sodium Chloride (Vancomycin 1 Gm/Ns 200 Ml) 1 gm in 200 mls @ 166.7 mls/hr IVPB TTS [facility]; Protocol Stop: 06/05/18 10:01 Last Admin: 05/31/18 14:13 Dose: 166.7 mls/hr Piperacillin Sod/Tazobactam Sod (Zosyn 2.25 Gm Iv Premix) 2.25 gm in 50 mls @ 100 mls/hr IVPB Q8H [facility]; Protocol Last Admin: 06/02/18 03:02 Dose: 100 mls/hr Ketorolac Tromethamine (Toradol) 30 mg IVP Q6 PRN PRN Reason: Pain, moderate (4-7) Last Admin: 06/01/18 21:13 Dose: 30 mg Methylprednisolone (Solu-Medrol) 30 mg IV Q12 [facility] Last Admin: 06/01/18 21:10 Dose: 30 mg Morphine Sulfate (Morphine) 2 mg IVP Q6 PRN PRN Reason: Pain, severe (8-10) Oxycodone/Acetaminophen (Percocet 5/325 Mg Tab) 1 tab PO Q4 PRN PRN Reason: Pain, moderate (4-7) Stop: 06/02/18 16:01 Last Admin: 06/01/18 16:05 Dose: 1 tab - Labs Labs: 06/02/18 07:58 06/02/18 07:58 PT 13.2 SECONDS (9.7-12.2) H 05/29/18 20:49 INR 1.2 05/29/18 20:49 APTT 37 SECONDS (21-34) H 05/29/18 20:49 - Constitutional Appears: No Acute Distress, Chronically Ill - Head Exam Head Exam: ATRAUMATIC, NORMAL INSPECTION - Eye Exam Eye Exam: EOMI, Normal appearance - Neck Exam Neck Exam: Normal Inspection. absent: Tenderness - Respiratory Exam Respiratory Exam: Clear to Ausculation Bilateral, NORMAL BREATHING PATTERN - Cardiovascular Exam Cardiovascular Exam: REGULAR RHYTHM, +S1 - GI/Abdominal Exam GI & Abdominal Exam: Soft. absent: Tenderness - Extremities Exam Extremities Exam: Normal Inspection, Tenderness - Neurological Exam Neurological Exam: Awake, CN II-XII Intact - Skin Skin Exam: Dry, Warm Assessment and Plan (1) ESRD (end stage renal disease) Status: Acute (2) Hyperparathyroidism due to end stage renal disease on dialysis Status: Acute (3) Dialysis AV fistula infection Status: Acute (4) COPD (chronic obstructive pulmonary disease) Status: Acute (5) Acute gout Status: Acute - Assessment and Plan (Free Text) Plan: Wound care IV ABs Rx gout
[2018-06-02] MEDS: MethylPREDNISolone 40 mg Vial IV SCH ×2 (10:18→21:05)
[2018-06-02] MEDS: Vancomycin 1 gm/NS 200 ml 1 GM/200 ML BAG IVPB SCH (10:23)
--- NOTE | 2018-06-02 12:42 | VASCLAB ---
Date of service: 06/01/2018 PROCEDURE: Right Lower Extremity Venous Duplex Exam. HISTORY: Swelling, r/o DVT. PRIORS: None. TECHNIQUE: Right common femoral, femoral, popliteal and posterior tibial, peroneal and great saphenous veins were evaluated. Flow was assessed with color Doppler, compressibility, assessment of phasic flow and augmentation response. Report prepared by GORDON Witt, RVT FINDINGS: RIGHT: 1. Common Femoral Vein: 1.1. Compressibility - Fully compressible: Thrombus - None: Flow - Phasic: Augmentation -Normal: Reflux - None. 2. Femoral Vein: 2.1. Compressibility - Fully compressible: Thrombus - None: Flow - Phasic: Augmentation -Normal: Reflux - None. 3. Popliteal Vein: 3.1. Compressibility - Fully compressible: Thrombus - None: Flow - Phasic: Augmentation -Normal: Reflux - None. 4. Posterior Tibial Vein: 4.1. Compressibility - Fully compressible: Thrombus - None: Flow - Phasic: Augmentation -Normal: Reflux - None. 5. Peroneal Vein: 5.1. Compressibility - Fully compressible: Thrombus - None: Flow - Phasic: Augmentation -Normal: Reflux - None. 6. Great Saphenous Vein: 6.1. Compressibility - Partial: Thrombus -Acute: Flow - Reduced : Augmentation - Reduced: Reflux - None. OTHER FINDINGS: Pulsatile venous flow noted. BRENDA Mejia notified about the findings. IMPRESSION: Acute thrombosis of the right mid calf to ankle greater saphenous vein with severe reduction of the venous return. No evidence of deep vein thrombosis of the right lower extremity with excellent venous flow. Normal valve function noted of the right side. Normal venous flow noted in the left common femoral vein.
--- NOTE | 2018-06-02 12:42 | VASCLAB ---
Date of service: 06/01/2018 PROCEDURE: Right Lower Extremity Arterial Exam. HISTORY: Right leg pain. COMPARISON: None available. TECHNIQUE: Grayscale and duplex Doppler evaluation of the right common femoral, femoral, profunda femoral, popliteal, posterior tibial, anterior tibial and dorsalis pedis arteries was performed. Report prepared by GORDON Witt, RVT FINDINGS: RIGHT LOWER EXTREMITY: * Common Femoral Artery: Peak Systolic Velocity - 119: Doppler Waveform: Triphasic.: Plaque description - * Profunda Femoral Artery: Peak Systolic Velocity - 103: Doppler Waveform: Triphasic.: Plaque description - * Femoral Artery o Proximal Segment: Peak Systolic Velocity - 100: Doppler Waveform: Triphasic.: Plaque description - o Middle Segment: Peak Systolic Velocity - 97: Doppler Waveform: Triphasic.: Plaque description - o Distal Segment: Peak Systolic Velocity - 101: Doppler Waveform: Triphasic.: Plaque description - * Popliteal Artery o Proximal Segment: Peak Systolic Velocity - 87: Doppler Waveform: Triphasic.: Plaque description - o Middle Segment: Peak Systolic Velocity - 78: Doppler Waveform: Triphasic.: Plaque description - o Distal Segment: Peak Systolic Velocity - 116: Doppler Waveform: Triphasic.: Plaque description - * Posterior Tibial Artery: Peak Systolic Velocity - 88: Doppler Waveform: Triphasic.: Plaque description - * Anterior Tibial Artery: Peak Systolic Velocity - 172: Doppler Waveform: Triphasic.: Plaque description - * Dorsalis Pedis Artery: Peak Systolic Velocity - 88: Doppler Waveform: Triphasic.: Plaque description - OTHER FINDINGS: None. IMPRESSION: RIGHT: 30-49% stenosis of the right distal anterior tibial artery.
--- NOTE | 2018-06-02 17:14 | CP.PCM.PN ---
<Dayanna Mello - Last Filed: 06/02/18 19:09> Subjective - Date & Time of Evaluation Date of Evaluation: 06/02/19 Time of Evaluation: 06:45 - Subjective Subjective: PGY-1 Dayanna Mello D.O. Medicine progress note for Dr. Ruiz's service: Patient was seen and examined this morning. She is POD2 removal of thrombosed old AVF in R arm. She states that her R knee feels much better and the swelling has decreased. She is looking forward to working with PT today. Her pain is well controlled with meds. She is eating and sleeping well. Objective - Vital Signs/Intake and Output Vital Signs (last 24 hours): Temp Pulse Resp BP Pulse Ox 97.4 F L 64 18 105/76 100 06/02/18 14:10 06/02/18 14:10 06/02/18 14:10 06/02/18 15:50 06/02/18 07:32 Intake and Output: 06/02/18 06/02/18 06:59 18:59 Intake Total 300 Balance 300 - Medications Medications: Current Medications Albuterol (Ventolin Hfa 90 Mcg/Actuation (8 G)) 2 puff IH RBID PRN PRN Reason: Shortness of Breath Benzocaine/Menthol (Cepacol Sore Throat) 1 yamila MT Q4 PRN PRN Reason: Sore Throat Last Admin: 05/31/18 21:25 Dose: 1 yamila Calcium Acetate (Phoslo) 667 mg PO TIDCC [facility] Last Admin: 06/02/18 12:18 Dose: 667 mg Carvedilol (Coreg) 12.5 mg PO BID [facility] Last Admin: 06/02/18 10:18 Dose: Not Given Epoetin Fermin (Procrit) 6,000 unit IV TTS [facility] Last Admin: 05/31/18 13:35 Dose: 6,000 unit Famotidine (Pepcid) 20 mg PO DAILY [facility] Last Admin: 06/02/18 10:17 Dose: 20 mg Heparin Sodium (Porcine) (Heparin) 5,000 units SC Q12 [facility] Last Admin: 06/02/18 10:17 Dose: 5,000 units Vancomycin/Sodium Chloride (Vancomycin 1 Gm/Ns 200 Ml) 1 gm in 200 mls @ 166.7 mls/hr IVPB TTS [facility]; Protocol Stop: 06/05/18 10:01 Last Admin: 06/02/18 10:23 Dose: Not Given Piperacillin Sod/Tazobactam Sod (Zosyn 2.25 Gm Iv Premix) 2.25 gm in 50 mls @ 100 mls/hr IVPB Q8H [facility]; Protocol Last Admin: 06/02/18 11:50 Dose: Not Given Ketorolac Tromethamine (Toradol) 30 mg IVP Q6 PRN PRN Reason: Pain, moderate (4-7) Last Admin: 06/01/18 21:13 Dose: 30 mg Methylprednisolone (Solu-Medrol) 30 mg IV Q12 [facility] Last Admin: 06/02/18 10:18 Dose: 30 mg Morphine Sulfate (Morphine) 2 mg IVP Q6 PRN PRN Reason: Pain, severe (8-10) - Labs Labs: 06/02/18 07:58 06/02/18 07:58 PT 13.2 SECONDS (9.7-12.2) H 05/29/18 20:49 INR 1.2 05/29/18 20:49 APTT 37 SECONDS (21-34) H 05/29/18 20:49 - Constitutional Appears: Non-toxic, No Acute Distress - Head Exam Head Exam: ATRAUMATIC, NORMAL INSPECTION - Eye Exam Eye Exam: EOMI, Normal appearance, PERRL - ENT Exam ENT Exam: Mucous Membranes Moist - Neck Exam Neck Exam: Normal Inspection - Respiratory Exam Respiratory Exam: Clear to Ausculation Bilateral, NORMAL BREATHING PATTERN - Cardiovascular Exam Cardiovascular Exam: REGULAR RHYTHM, +S1, +S2 - GI/Abdominal Exam GI & Abdominal Exam: Soft. absent: Tenderness - Rectal Exam Rectal Exam: Deferred - Extremities Exam Extremities Exam: Joint Swelling (minimal superior lateral R knee- improved). absent: Calf Tenderness - Back Exam Additional comments: R forearm wrapped in clean dry bandages - Neurological Exam Neurological Exam: Alert, Awake, CN II-XII Intact, Oriented x3 - Psychiatric Exam Psychiatric exam: Normal Affect, Normal Mood - Skin Skin Exam: Dry, Intact, Normal Color, Warm Assessment and Plan - Assessment and Plan (Free Text) Assessment: Patient is a 53 yo female with a history of ESRD s/p 2 failed transplants with HD on TTS who presents with infection of nonfunctioning RUE AVF. POD3- I&D with removal of thrombosed AVF. New edema and pain of lateral R knee improving- suspect gout. Plan: Infection of nonfunctioning RUE AVF- POD2 excision of thrombosed infected AV fistula - Afebrile, no leukocytosis - Blood Cx no grwoth > 3 days - Pathology from surgery- Klebsiella pneumoniae - Discontinue Zosyn 2.25 mg IV Q8H - Discontinue Vancomycin 1 g IV TTS - Start Cipro 400 mg IV Q12H- stared 06/02 - Morphine 2 mg IV Q6H PRN - Percocet 1 tab PO Q4H PRN - Toradol 30 mg IV Q6H PRN - Surgery consulted (Silvina) R knee effusion- possibly gout - XR: small effusion and osteoarthritis - Uric acid 4.2 - Solu-medrol 30 mg IV Q12H as per neprho - PT/OT- rec KHUSHI End stage renal disease HD on TTS- s/p 2 failed renal transplants (1998, 2008) - Procrit 6000 unit IV TTS - Renal diet - Nephrology consulted (Lamberto) Sore throat, resolved- likely due to intubation during surgery - Benzocaine/menthol lozenges Q4H PRN Hypertension - Monitor vitals Q4H - Coreg 12.5 mg PO BID [facility] - Albuterol 2 puffs BID PRN - Maintain spO2 >92%- supplemental O2 PRN Osteoarthritis - Percocet 1 tab Q4H PRN Ppx: VTE: SCDs, heparin 8000 units Q12H GI: Pepcid 20 mg PO daily Code status: full code Case was discussed with attending, Dr. Ruiz. <Kristopher Ruiz - Last Filed: 06/03/18 09:10> Objective - Vital Signs/Intake and Output Vital Signs (last 24 hours): Temp Pulse Resp BP Pulse Ox 98.1 F 67 20 120/60 100 06/03/18 08:22 06/03/18 08:22 06/03/18 08:22 06/03/18 08:22 06/03/18 08:22 Intake and Output: 06/03/18 06/03/18 06:59 18:59 Intake Total 400 180 Balance 400 180 - Medications Medications: Current Medications Albuterol (Ventolin Hfa 90 Mcg/Actuation (8 G)) 2 puff IH RBID PRN PRN Reason: Shortness of Breath Benzocaine/Menthol (Cepacol Sore Throat) 1 yamila MT Q4 PRN PRN Reason: Sore Throat Last Admin: 05/31/18 21:25 Dose: 1 yamila Calcium Acetate (Phoslo) 667 mg PO TIDCC [facility] Last Admin: 06/03/18 07:52 Dose: 667 mg Carvedilol (Coreg) 12.5 mg PO BID [facility] Last Admin: 06/02/18 18:30 Dose: 12.5 mg Epoetin Fermin (Procrit) 6,000 unit IV TTS [facility] Last Admin: 06/02/18 17:50 Dose: 6,000 unit Famotidine (Pepcid) 20 mg PO DAILY [facility] Last Admin: 06/02/18 10:17 Dose: 20 mg Heparin Sodium (Porcine) (Heparin) 5,000 units SC Q12 [facility] Last Admin: 06/02/18 21:09 Dose: 5,000 units Ciprofloxacin (Cipro 200mg/100ml D5w) 100 mls @ 75 mls/hr IVPB Q12H [facility]; Protocol Last Admin: 06/03/18 07:52 Dose: 75 mls/hr Ketorolac Tromethamine (Toradol) 30 mg IVP Q6 PRN PRN Reason: Pain, moderate (4-7) Last Admin: 06/02/18 23:38 Dose: 30 mg Methylprednisolone (Solu-Medrol) 30 mg IV Q12 [facility] Last Admin: 06/02/18 21:05 Dose: 30 mg Morphine Sulfate (Morphine) 2 mg IVP Q6 PRN PRN Reason: Pain, severe (8-10) - Labs Labs: 06/03/18 07:11 06/03/18 07:11 PT 13.2 SECONDS (9.7-12.2) H 05/29/18 20:49 INR 1.2 05/29/18 20:49 APTT 37 SECONDS (21-34) H 05/29/18 20:49 Attending/Attestation - Attestation I have personally seen and examined this patient.: Yes I have fully participated in the care of the patient.: Yes I have reviewed all pertinent clinical information, including history, physical exam and plan: Yes Notes (Text): 06/03/18 09:08 Medical attending: Patient was seen and examined by me. Agree with the above note by the resident The patient was not in any acute distress when I came and saw her. She was looking much better and now able to walk - the patient was placed on IV solumedrol by nephrology for gout and she says this has helped substantially. Hopefully can be discharged soon Krsitopher Ruiz
[2018-06-02] MEDS: Epoetin Alfa Dialysis 3000 UNIT/ML Inj IV SCH (17:50)
[2018-06-02] MEDS: Ciprofloxacin 200mg/100ml D5W 100 ML IVPB SCH (21:00)
[2018-06-02 23:45] VITALS: RESP 20
[2018-06-03 07:18] LABS: BASO % 0.2 % (0.0-2.0); HEMOGLOBIN 9.6 g/dL (11.0-16.0); LYMPH # 0.5 K/uL (1.0-4.3); LYMPH % 9.9 % (20.0-40.0); MEAN CELL VOLUME 93.8 fL (81.0-99.0); MEAN CORPUSCULAR HEMOGLOBIN 30.6 pg (27.0-31.0); MEAN CORPUSCULAR HGB CONC 32.6 g/dL (33.0-37.0); MEAN PLATELET VOLUME 9.4 fL (7.2-11.7); MONO # 0.4 K/uL (0.0-0.8); MONO % 7.5 % (0.0-10.0); NEUT # 4.1 K/uL (1.8-7.0); NEUT % 82.4 % (50.0-75.0); PLATELET COUNT 181 K/uL (130-400); RBC 3.12 Mil/uL (3.80-5.20); RED CELL DISTRIBUTION WIDTH 15.5 % (11.5-14.5)
[2018-06-03] MEDS: Ciprofloxacin 200mg/100ml D5W 100 ML IVPB SCH (07:52)
[2018-06-03 07:58] LABS: ALBUMIN 3.6 g/dL (3.5-5.0)
[2018-06-03 08:25] VITALS: TEMP 98.1
[2018-06-03 08:37] LABS: LYMPHOCYTE 8 % (20-40); MONOCYTE 7 % (0-10); NEUTROPHIL 85 % (50-75); PLATELET ESTIMATE NORMAL (NORMAL); TOTAL CELLS COUNTED 100
[2018-06-03 08:38] LABS: ANISOCYTOSIS SLIGHT; HYPOCHROMIC SLIGHT; LARGE PLATELETS PRESENT; POIKILOCYTOSIS SLIGHT
--- NOTE | 2018-06-03 09:02 | CP.PCM.DIS ---
<Dayanna Mello - Last Filed: 06/03/18 15:58> Provider - Provider Date of Admission: 05/29/18 20:21 Attending physician: Kristopher Ruiz DO Primary care physician: Dr. Mario Vaz Consults: 05/29/18 20:24 General Surgery Consult Stat Comment: Consulting Provider: Matt Cool Jr. Consulting Physician: Matt Cool Jr. Reason for Consult: infected AV fistula1 05/29/18 23:09 Physician Consult Routine Comment: Consulting Provider: Indra Orantes Consulting Physician: Indra Orantes Reason for Consult: TTS HD Time Spent in preparation of Discharge (in minutes): 45 Diagnosis - Discharge Diagnosis (1) Dialysis AV fistula infection Status: Acute Priority: High (2) Knee effusion, right Status: Resolved Priority: Medium (3) ESRD (end stage renal disease) Status: Chronic Priority: Medium Hospital Course - Lab Results Lab Results: Micro Results 05/29/18 21:00 Blood Blood Culture - Preliminary NO GROWTH AFTER 4 DAYS 05/29/18 20:30 Blood Blood Culture - Preliminary NO GROWTH AFTER 4 DAYS 05/30/18 08:04 Skin - Arm-Right Gram Stain - Preliminary 05/30/18 08:04 Skin - Arm-Right Tissue Culture - Final Klebsiella Pneumoniae Ssp Pneu Most Recent Lab Values WBC 5.0 K/uL (4.8-10.8) 06/03/18 07:11 RBC 3.12 Mil/uL (3.80-5.20) L 06/03/18 07:11 Hgb 9.6 g/dL (11.0-16.0) L 06/03/18 07:11 Hct 29.3 % (34.0-47.0) L 06/03/18 07:11 MCV 93.8 fL (81.0-99.0) 06/03/18 07:11 MCH 30.6 pg (27.0-31.0) 06/03/18 07:11 MCHC 32.6 g/dL (33.0-37.0) L 06/03/18 07:11 RDW 15.5 % (11.5-14.5) H 06/03/18 07:11 Plt Count 181 K/uL (130-400) 06/03/18 07:11 MPV 9.4 fL (7.2-11.7) 06/03/18 07:11 Neut % (Auto) 82.4 % (50.0-75.0) H 06/03/18 07:11 Lymph % (Auto) 9.9 % (20.0-40.0) L 06/03/18 07:11 [place] % (Auto) 7.5 % (0.0-10.0) 06/03/18 07:11 Eos % (Auto) 0.0 % (0.0-4.0) 06/03/18 07:11 Baso % (Auto) 0.2 % (0.0-2.0) 06/03/18 07:11 Neut # (Auto) 4.1 K/uL (1.8-7.0) 06/03/18 07:11 Lymph # (Auto) 0.5 K/uL (1.0-4.3) L 06/03/18 07:11 [place] # (Auto) 0.4 K/uL (0.0-0.8) 06/03/18 07:11 Eos # (Auto) 0.0 K/uL (0.0-0.7) 06/03/18 07:11 Baso # (Auto) 0.0 K/uL (0.0-0.2) 06/03/18 07:11 Neutrophils % (Manual) 85 % (50-75) H 06/03/18 07:11 Lymphocytes % (Manual) 8 % (20-40) L 06/03/18 07:11 Monocytes % (Manual) 7 % (0-10) 06/03/18 07:11 Differential Comment 05/30/18 06:59 Platelet Estimate Normal (NORMAL) 06/03/18 07:11 Large Platelets Present 06/03/18 07:11 Hypochromasia (manual) Slight 06/03/18 07:11 Poikilocytosis (manual Slight 06/03/18 07:11 Anisocytosis (manual) Slight 06/03/18 07:11 Target Cells Slight 06/02/18 07:58 PT 13.2 SECONDS (9.7-12.2) H 05/29/18 20:49 INR 1.2 05/29/18 20:49 APTT 37 SECONDS (21-34) H 05/29/18 20:49 Sodium 138 mmol/L (132-148) 06/03/18 07:11 Potassium 4.5 mmol/L (3.6-5.2) 06/03/18 07:11 Chloride 94 mmol/L (98-107) L 06/03/18 07:11 Carbon Dioxide 31 mmol/L (22-30) H 06/03/18 07:11 Anion Gap 18 (10-20) 06/03/18 07:11 BUN 34 mg/dL (7-17) H 06/03/18 07:11 Creatinine 5.3 mg/dL (0.7-1.2) H 06/03/18 07:11 Est GFR ( Amer) 10 06/03/18 07:11 Est GFR (Non-Af Amer) 8 06/03/18 07:11 Random Glucose 141 mg/dL (65-105) H 06/03/18 07:11 Uric Acid 4.2 mg/dL (2.2-7.5) 06/01/18 15:55 Calcium 8.0 mg/dl (8.6-10.4) L 06/03/18 07:11 Phosphorus 4.9 mg/dL (2.5-4.5) H 06/03/18 07:11 Magnesium 2.1 mg/dL (1.6-2.3) 06/03/18 07:11 Total Bilirubin 0.5 mg/dL (0.2-1.3) 06/03/18 07:11 AST 21 U/L (14-36) 06/03/18 07:11 ALT 21 U/L (9-52) 06/03/18 07:11 Alkaline Phosphatase 49 U/L (38-126) 06/03/18 07:11 Total Protein 7.0 g/dL (6.3-8.3) 06/03/18 07:11 Albumin 3.6 g/dL (3.5-5.0) 06/03/18 07:11 Globulin 3.5 gm/dL (2.2-3.9) 06/03/18 07:11 Albumin/Globulin Ratio 1.0 (1.0-2.1) 06/03/18 07:11 - Hospital Course Hospital Course: Patient is a 53 year old female PMH ESRD (2 failed transplants), arthritis, hypertension, asthma, scoliosis comes in today for increasing pain at an old right arm AVF x4 days. She noticed there was a pimple like growth about a week ago. On Carmen, 4 days ago, she knocked the tip. A scab fell off without bleeding or pus. Since then, another scab formed over the opening, but the area has been increasingly painful to a 8/10 today. The area that has been tender to touch has grown from just the scab to about a 2cm diameter. She has no other physical complaints. Denies fever, chills, nausea, vomiting, constipation, diarrhea, chest pain, shortness of breath, headache. She follows a Tue/Carmen/Sat HD schedule and last had dialysis on Sat as scheduled. Patient was seen by vascular surgery. They removed the thrombosed infected AVF on 05/30. Patient remained afebrile and without leukocytosis. Patient was empirically started on vancomycin and Zosyn. Surgical specimen grew Klebsiella, and patient was switched to cipro. Blood cultures remained negative. Patient maintained her HD schedule while hospitalized. The day after surgery, the patient developed a small suprapatellar effusion of the lateral R knee and knee pain. Neprhology stated patient on steroids, suspecting gout. Patient worked w [facility]. The next day, patient felt much improved and swelling decreased. Upon discharge, patient was ambulating independently. Her pain was well controlled without narcotics. Her vitals were stable. She started therapeutic abx treatment and steroid taper. Discharge Exam - Head Exam Head Exam: ATRAUMATIC, NORMAL INSPECTION - Eye Exam Eye Exam: EOMI, Normal appearance, PERRL - ENT Exam ENT Exam: Mucous Membranes Moist - Neck Exam Neck exam: Normal Inspection - Respiratory Exam Respiratory Exam: Clear to PA & Lateral, NORMAL BREATHING PATTERN, UNREMARKABLE - Cardiovascular Exam Cardiovascular Exam: REGULAR RHYTHM, +S1, +S2 - GI/Abdominal Exam GI & Abdominal Exam: Soft, Unremarkable. absent: Tenderness - Rectal Exam Rectal Exam: Deferred - Extremities Exam Extremities exam: normal capillary refill, pedal pulses present Additional comments: R forearm wrapped in michelle bandage by surgery- no signed of extensive edema or erythema - Back Exam Back exam: NORMAL INSPECTION - Neurological Exam Neurological exam: Alert, CN II-XII Intact, Oriented x3 - Psychiatric Exam Psychiatric exam: Normal Affect, Normal Mood - Skin Skin Exam: Dry, Normal Color, Warm Discharge Plan - Discharge Medications Prescriptions: Ciprofloxacin [Cipro] 250 mg PO DAILY #10 tab RX: oxyCODONE/Acetaminophen [Percocet 5/325 mg Tab] 1 tab PO Q6 PRN #10 tab PRN Reason: Pain, Severe (8-10) RX: predniSONE [predniSONE Tab] 10 mg PO ASDIR #20 tab - Follow Up Plan Condition: IMPROVED Disposition: HOME/ ROUTINE Patient education suggested?: Yes Instructions: Ciprofloxacin (Systemic), Gout (DC), Oxycodone and Acetaminophen, Prednisone, End Stage Kidney Disease (DC), Dialysis and Diet Additional Instructions: Please follow-up with your primary care physician, Dr. Vaz, within 3-5 days of discharge. Please follow-up with Dr. Cool in 1 week for staple removal. Continue your current dialysis schedule. You will be given a prescription for cipro 250 mg, an antibiotic. Take once daily for a total of 10 days. You may take Percocet or over the counter Tylenol for pain. You will also be given a prescription for prednisone 10 mg, a steroid, for your knee. 4 tabs daily x 2 days, then 3 tabs daily for 2 days, then 2 tabs daily for 2 days, then 1 tab daily for 2 days, then stop. If symptoms recur, return to the nearest emergency room. Referrals: Indra Orantes MD [Staff Provider] - Mario Vaz MD [Staff Provider] - Matt Cool Jr., MD [Staff Provider] - <Kristopher Ruiz - Last Filed: 06/03/18 16:26> Provider - Provider Date of Admission: 05/29/18 20:21 Attending physician: Kristopher Ruiz DO Consults: 05/29/18 20:24 General Surgery Consult Stat Comment: Consulting Provider: Matt Cool Jr. Consulting Physician: Matt Cool Jr. Reason for Consult: infected AV fistula1 05/29/18 23:09 Physician Consult Routine Comment: Consulting Provider: Indra Orantes Consulting Physician: Indra Orantes Reason for Consult: TTS HD Hospital Course - Lab Results Lab Results: Micro Results 05/29/18 21:00 Blood Blood Culture - Preliminary NO GROWTH AFTER 4 DAYS 05/29/18 20:30 Blood Blood Culture - Preliminary NO GROWTH AFTER 4 DAYS 05/30/18 08:04 Skin - Arm-Right Gram Stain - Preliminary 05/30/18 08:04 Skin - Arm-Right Tissue Culture - Final Klebsiella Pneumoniae Ssp Pneu Most Recent Lab Values WBC 5.0 K/uL (4.8-10.8) 06/03/18 07:11 RBC 3.12 Mil/uL (3.80-5.20) L 06/03/18 07:11 Hgb 9.6 g/dL (11.0-16.0) L 06/03/18 07:11 Hct 29.3 % (34.0-47.0) L 06/03/18 07:11 MCV 93.8 fL (81.0-99.0) 06/03/18 07:11 MCH 30.6 pg (27.0-31.0) 06/03/18 07:11 MCHC 32.6 g/dL (33.0-37.0) L 06/03/18 07:11 RDW 15.5 % (11.5-14.5) H 06/03/18 07:11 Plt Count 181 K/uL (130-400) 06/03/18 07:11 MPV 9.4 fL (7.2-11.7) 06/03/18 07:11 Neut % (Auto) 82.4 % (50.0-75.0) H 06/03/18 07:11 Lymph % (Auto) 9.9 % (20.0-40.0) L 06/03/18 07:11 [place] % (Auto) 7.5 % (0.0-10.0) 06/03/18 07:11 Eos % (Auto) 0.0 % (0.0-4.0) 06/03/18 07:11 Baso % (Auto) 0.2 % (0.0-2.0) 06/03/18 07:11 Neut # (Auto) 4.1 K/uL (1.8-7.0) 06/03/18 07:11 Lymph # (Auto) 0.5 K/uL (1.0-4.3) L 06/03/18 07:11 [place] # (Auto) 0.4 K/uL (0.0-0.8) 06/03/18 07:11 Eos # (Auto) 0.0 K/uL (0.0-0.7) 06/03/18 07:11 Baso # (Auto) 0.0 K/uL (0.0-0.2) 06/03/18 07:11 Neutrophils % (Manual) 85 % (50-75) H 06/03/18 07:11 Lymphocytes % (Manual) 8 % (20-40) L 06/03/18 07:11 Monocytes % (Manual) 7 % (0-10) 06/03/18 07:11 Differential Comment 05/30/18 06:59 Platelet Estimate Normal (NORMAL) 06/03/18 07:11 Large Platelets Present 06/03/18 07:11 Hypochromasia (manual) Slight 06/03/18 07:11 Poikilocytosis (manual Slight 06/03/18 07:11 Anisocytosis (manual) Slight 06/03/18 07:11 Target Cells Slight 06/02/18 07:58 PT 13.2 SECONDS (9.7-12.2) H 05/29/18 20:49 INR 1.2 05/29/18 20:49 APTT 37 SECONDS (21-34) H 05/29/18 20:49 Sodium 138 mmol/L (132-148) 06/03/18 07:11 Potassium 4.5 mmol/L (3.6-5.2) 06/03/18 07:11 Chloride 94 mmol/L (98-107) L 06/03/18 07:11 Carbon Dioxide 31 mmol/L (22-30) H 06/03/18 07:11 Anion Gap 18 (10-20) 06/03/18 07:11 BUN 34 mg/dL (7-17) H 06/03/18 07:11 Creatinine 5.3 mg/dL (0.7-1.2) H 06/03/18 07:11 Est GFR ( Amer) 10 06/03/18 07:11 Est GFR (Non-Af Amer) 8 06/03/18 07:11 Random Glucose 141 mg/dL (65-105) H 06/03/18 07:11 Uric Acid 4.2 mg/dL (2.2-7.5) 06/01/18 15:55 Calcium 8.0 mg/dl (8.6-10.4) L 06/03/18 07:11 Phosphorus 4.9 mg/dL (2.5-4.5) H 06/03/18 07:11 Magnesium 2.1 mg/dL (1.6-2.3) 06/03/18 07:11 Total Bilirubin 0.5 mg/dL (0.2-1.3) 06/03/18 07:11 AST 21 U/L (14-36) 06/03/18 07:11 ALT 21 U/L (9-52) 06/03/18 07:11 Alkaline Phosphatase 49 U/L (38-126) 06/03/18 07:11 Total Protein 7.0 g/dL (6.3-8.3) 06/03/18 07:11 Albumin 3.6 g/dL (3.5-5.0) 06/03/18 07:11 Globulin 3.5 gm/dL (2.2-3.9) 06/03/18 07:11 Albumin/Globulin Ratio 1.0 (1.0-2.1) 06/03/18 07:11 Attending/Attestation - Attestation I have personally seen and examined this patient.: Yes I have fully participated in the care of the patient.: Yes I have reviewed all pertinent clinical information, including history, physical exam and plan: Yes Notes (Text): 06/03/18 16:18 Medical attending: Patient was seen and examined by me. Agree with the above note by the resident The patient was not in any acute distress when we came and saw her. She looks very well. She denied fevers, chills, chest pain, and denied shortness of breath, and also pain in the old AVF is controlled. The patient has been able to walk well and also the pain has subsided considerably. The patient will need to go with PO prednisone tapering regimen as well as PO percocet and PO abx as well. As mentioned above in the resident note the patient had an infected old AVF that has been reomoved. Wound culture showed Klebseilla and it is sensitive to Ciprofloxacin. She will be on a modified dose for her history of ESRD on HD Kristopher Ruiz
[2018-06-03] MEDS: MethylPREDNISolone 40 mg Vial IV SCH (10:00)
--- NOTE | 2018-06-03 14:09 | CP.PCM.PN ---
Subjective - Date & Time of Evaluation Date of Evaluation: 06/03/18 Time of Evaluation: 14:07 - Subjective Subjective: Feels better Right knee with increased ROM now No fevers Stable dialysis course- due in AM Objective - Vital Signs/Intake and Output Vital Signs (last 24 hours): Temp Pulse Resp BP Pulse Ox 98.1 F 67 20 125/83 100 06/03/18 08:22 06/03/18 08:22 06/03/18 08:22 06/03/18 10:03 06/03/18 08:22 Intake and Output: 06/03/18 06/03/18 06:59 18:59 Intake Total 400 180 Balance 400 180 - Medications Medications: Current Medications Albuterol (Ventolin Hfa 90 Mcg/Actuation (8 G)) 2 puff IH RBID PRN PRN Reason: Shortness of Breath Benzocaine/Menthol (Cepacol Sore Throat) 1 yamila MT Q4 PRN PRN Reason: Sore Throat Last Admin: 05/31/18 21:25 Dose: 1 yamila Calcium Acetate (Phoslo) 667 mg PO TIDCC [facility] Last Admin: 06/03/18 11:27 Dose: 667 mg Carvedilol (Coreg) 12.5 mg PO BID [facility] Last Admin: 06/03/18 10:03 Dose: 12.5 mg Epoetin Fermin (Procrit) 6,000 unit IV TTS [facility] Last Admin: 06/02/18 17:50 Dose: 6,000 unit Famotidine (Pepcid) 20 mg PO DAILY [facility] Last Admin: 06/03/18 10:04 Dose: 20 mg Heparin Sodium (Porcine) (Heparin) 5,000 units SC Q12 [facility] Last Admin: 06/03/18 10:02 Dose: 5,000 units Ciprofloxacin (Cipro 200mg/100ml D5w) 100 mls @ 75 mls/hr IVPB Q12H [facility]; Protocol Last Admin: 06/03/18 07:52 Dose: 75 mls/hr Ketorolac Tromethamine (Toradol) 30 mg IVP Q6 PRN PRN Reason: Pain, moderate (4-7) Last Admin: 06/02/18 23:38 Dose: 30 mg Methylprednisolone (Solu-Medrol) 30 mg IV Q12 [facility] Last Admin: 06/03/18 10:00 Dose: 30 mg Morphine Sulfate (Morphine) 2 mg IVP Q6 PRN PRN Reason: Pain, severe (8-10) - Labs Labs: 06/03/18 07:11 06/03/18 07:11 PT 13.2 SECONDS (9.7-12.2) H 05/29/18 20:49 INR 1.2 05/29/18 20:49 APTT 37 SECONDS (21-34) H 05/29/18 20:49 - Constitutional Appears: No Acute Distress, Chronically Ill - Head Exam Head Exam: ATRAUMATIC, NORMAL INSPECTION - Eye Exam Eye Exam: EOMI, Normal appearance - Neck Exam Neck Exam: Normal Inspection. absent: Tenderness - Respiratory Exam Respiratory Exam: Clear to Ausculation Bilateral, NORMAL BREATHING PATTERN - Cardiovascular Exam Cardiovascular Exam: REGULAR RHYTHM, +S1 - GI/Abdominal Exam GI & Abdominal Exam: Soft, Tenderness - Extremities Exam Extremities Exam: Normal Inspection, Tenderness - Neurological Exam Neurological Exam: Awake, CN II-XII Intact - Skin Skin Exam: Dry, Warm Assessment and Plan (1) ESRD (end stage renal disease) Status: Chronic (2) Hyperparathyroidism due to end stage renal disease on dialysis Status: Acute (3) Dialysis AV fistula infection Status: Acute (4) COPD (chronic obstructive pulmonary disease) Status: Acute (5) Acute gout Status: Acute - Assessment and Plan (Free Text) Plan: Taper steroids IV ABs dialysis TTS Possible discharge plans
[2018-06-03 16:14] VITALS: BP 106/51; PULSE 70; O2SAT 97
[2018-06-03] MEDS ORDERED: Pneumococcal 23-Valent Vaccine IM ONE (16:20)
[2018-06-04] MEDS ORDERED: Ciprofloxacin 200mg/100ml D5W 100 ML IVPB SCH (08:00)
== END 2018-06-03 16:55 | disposition home or self-care (01) | DRG 264 ==
LOC: C.ER 18:35 → C.9E 20:21 → C.9S 05-30 15:14 → C.3T 05-30 20:05
PROVIDERS: ADMIT Hospitalist; ATTEND Hospitalist
PROC: 0JBG0ZZ Excision of Right Lower Arm Subcutaneous Tissue and Fascia, Open Approach (ICD-10-PCS; 2018-05-30)
PROC: 5A1D70Z Performance of Urinary Filtration, Intermittent, Less than 6 Hours Per Day (ICD-10-PCS; 2018-05-30)
PROC: 03PY07Z Removal of Autologous Tissue Substitute from Upper Artery, Open Approach (ICD-10-PCS; principal; 2018-05-30 12:45)
PROC: 5A1D70Z Performance of Urinary Filtration, Intermittent, Less than 6 Hours Per Day (ICD-10-PCS; 2018-06-02)
DX: T82.7XXA Infection and inflammatory reaction due to other cardiac and vascular devices, implants and grafts, initial encounter (principal); N18.6 End stage renal disease; L02.413 Cutaneous abscess of right upper limb; Z94.0 Kidney transplant status; I12.0 Hypertensive chronic kidney disease with stage 5 chronic kidney disease or end stage renal disease; N25.81 Secondary hyperparathyroidism of renal origin; T82.868A Thrombosis due to vascular prosthetic devices, implants and grafts, initial encounter; B96.1 Klebsiella pneumoniae [K. pneumoniae] as the cause of diseases classified elsewhere; Y83.2 Surgical operation with anastomosis, bypass or graft as the cause of abnormal reaction of the patient, or of later complication, without mention of misadventure at the time of the procedure; M25.461 Effusion, right knee; M10.9 Gout, unspecified; M41.9 Scoliosis, unspecified; J44.9 Chronic obstructive pulmonary disease, unspecified; M19.90 Unspecified osteoarthritis, unspecified site; Z99.2 Dependence on renal dialysis; Z87.891 Personal history of nicotine dependence; Z83.3 Family history of diabetes mellitus; Z80.3 Family history of malignant neoplasm of breast

== ENCOUNTER 2018-06-05 05:45 | Emergency (ER) | payer MEDICARE ==
[2018-06-05 05:46] VITALS: BMI 20.9
--- NOTE | 2018-06-05 06:21 | C.PDOC ---
History Of Present Illness 53 year old female presents to the ED for evaluation of bleeding from her AV shunt in left arm. Patient was seen in the ED last week for same. Patient denies fever, chills, nausea, vomit, rash, weakness, numbness, injury, fall, trauma. <Jaren Leo - Last Filed: 06/05/18 06:22> History Per: Patient History/Exam Limitations: no limitations Onset/Duration Of Symptoms: Days Current Symptoms Are (Timing): Still Present Recent travel outside of the [place]: No Additional History Per: Patient <Jaren Leo - Last Filed: 06/05/18 06:22> <Susie Oliver - Last Filed: 06/05/18 08:12> Chief Complaint (Nursing): Upper Extremity Problem/Injury Past Medical History Reviewed: Historical Data, Nursing Documentation, Vital Signs Vital Signs: Last Vital Signs Temp 98.5 F 06/05/18 06:08 Pulse 75 06/05/18 06:08 Resp 18 06/05/18 06:08 BP 157/89 H 06/05/18 06:08 Pulse Ox 100 06/05/18 06:08 - Medical History PMH: Anemia, Asthma, HTN, End Stage Renal Disease (HD T/R/Sa), Chronic Kidney Disease Surgical History: Endoscopy, Family History: States: Unknown Family Hx - Social History Hx Tobacco Use: No Hx Alcohol Use: No Hx Substance Use: No - Immunization History Hx Tetanus Toxoid Vaccination: No Hx Influenza Vaccination: Yes Hx Pneumococcal Vaccination: Yes <Jaren Leo Vandana - Last Filed: 06/05/18 06:22> Vital Signs: Last Vital Signs Temp 98.5 F 06/05/18 06:08 Pulse 70 06/05/18 07:16 Resp 18 06/05/18 07:16 BP 167/70 H 06/05/18 07:16 Pulse Ox 99 06/05/18 07:16 <Susie Oliver - Last Filed: 06/05/18 08:12> Review Of Systems Constitutional: Negative for: Fever, Chills Cardiovascular: Negative for: Chest Pain, Palpitations Respiratory: Negative for: Cough, Shortness of Breath Gastrointestinal: Negative for: Nausea, Vomiting, Abdominal Pain Musculoskeletal: Positive for: Arm Pain Neurological: Negative for: Weakness, Numbness, Headache <Jaren Leo - Last Filed: 06/05/18 06:22> Physical Exam - Physical Exam Appears: Non-toxic, No Acute Distress Skin: Normal Color, Warm, Dry Head: Atraumatic, Normacephalic Eye(s): bilateral: Normal Inspection Neck: Normal ROM, Supple Chest: Symmetrical Cardiovascular: Rhythm Regular Respiratory: Normal Breath Sounds, No Rales, No Rhonchi, No Wheezing Gastrointestinal/Abdominal: Soft, No Tenderness, No Guarding, No Rebound Extremity: Normal ROM, Capillary Refill (< 2 seconds), No Swelling, Other (left proximal arm AV shunt, no active bleeding) Pulses: Left Radial: Normal, Right Radial: Normal Neurological/Psych: Oriented x3, Normal Speech, Normal Cognition Gait: Steady <Jaren Leo Last Filed: 06/05/18 06:22> ED Course And Treatment O2 Sat by Pulse Oximetry: 100 (ON RA) Pulse Ox Interpretation: Normal <Jaren Leo Last Filed: 06/05/18 06:22> - Laboratory Results Result Diagrams: 06/05/18 06:41 <Susie Oliver - Last Filed: 06/05/18 08:12> Progress - Re-Evaluation Re-evaluation Note: 06/05/18 07:00 S/O FROM DR LEO. SP PRESSURE DRESSING, BLEEDING RESOLVED. PENDING CALLBACK DR ELLIOTT 06/05/18 08:[address] ELLIOTT. NO ACTIVE BLEEDING. 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 [place] INSTRUCTIONS DISCUSSED, AGREES W DC PLAN. FU OFFICE THIS WEEK FOR STAPLE REMOVAL D/W SURG RESIDENT, STATES WILL NOTIFY DR ELLIOTT TODAY <Susie Oliver Last Filed: 06/05/18 08:12> Medical Decision Making Medical Decision Making: Pressure dressing was applied to the left proximal arm where the AV shunt is located, successfully stopped the bleeding <Jaren Leo Last Filed: 06/05/18 06:22> Disposition <Jaren Leo Last Filed: 06/05/18 06:22> Counseled Patient/Family Regarding: Diagnosis, Need For Followup - Disposition Disposition Time: 08:08 <Susie Oliver Last Filed: 06/05/18 08:12> - Disposition Referrals: Matt Elliott Jr., MD [Staff Provider] - Disposition: HOME/ ROUTINE Condition: IMPROVED Additional Instructions: APPLY CONTINUOUS PRESSURE INSTRUCTED FOR 15-20 MINS. RETURN IF WORSENING SYMPTOMS Instructions: Wound Care (DC) Forms: [employer] ([place]) - Clinical Impression Clinical Impression: Bleeding from wound - Scribe Statement The provider has reviewed the documentation as recorded by the Scribe Marty Saba All medical record entries made by the Scribe were at my direction and personally dictated by me. I have reviewed the chart and agree that the record accurately reflects my personal performance of the history, physical exam, medical decision making, and the department course for this patient. I have also personally directed, reviewed, and agree with the discharge instructions and disposition. <Jaren Leo - Last Filed: 06/05/18 06:22>
[2018-06-05] MEDS ORDERED: Tramadol 25 mg PO STA (06:41)
[2018-06-05] MEDS ORDERED: Tramadol 25 mg ONE (06:43)
[2018-06-05 06:44] LABS: BASO % 0.5 % (0.0-2.0); HEMOGLOBIN 13.7 g/dL (11.0-16.0); LYMPH # 2.8 K/uL (1.0-4.3); LYMPH % 31.9 % (20.0-40.0); MEAN CELL VOLUME 94.8 fL (81.0-99.0); MEAN CORPUSCULAR HEMOGLOBIN 30.9 pg (27.0-31.0); MEAN CORPUSCULAR HGB CONC 32.6 g/dL (33.0-37.0); MEAN PLATELET VOLUME 8.2 fL (7.2-11.7); MONO # 0.5 K/uL (0.0-0.8); MONO % 5.2 % (0.0-10.0); NEUT # 5.4 K/uL (1.8-7.0); NEUT % 62.4 % (50.0-75.0); NRBC % 0.1 % (0.0-2.0); RBC 4.43 Mil/uL (3.80-5.20); RED CELL DISTRIBUTION WIDTH 15.9 % (11.5-14.5); WHITE BLOOD COUNT 8.7 K/uL (4.8-10.8)
[2018-06-05 06:57] LABS: INR 1.1; PROTHROMBIN TIME 11.5 SECONDS (9.7-12.2)
[2018-06-05 07:34] VITALS: RESP 18
[2018-06-05 08:20] VITALS: BP 160/56; PULSE 69; TEMP 98; O2SAT 98
== END 2018-06-05 08:51 | disposition home or self-care (01) ==
LOC: C.ER 05:45
DX: T82.838A Hemorrhage due to vascular prosthetic devices, implants and grafts, initial encounter (principal); Y84.8 Other medical procedures as the cause of abnormal reaction of the patient, or of later complication, without mention of misadventure at the time of the procedure; Y92.89 Other specified places as the place of occurrence of the external cause

== ENCOUNTER 2018-06-16 09:52 | Observation (INO) | payer MEDICARE ==
[2018-06-16 09:53] VITALS: BMI 20.9
[2018-06-16 10:48] LABS: BASO % 0.3 % (0.0-2.0); EOS # 0.1 K/uL (0.0-0.7); EOS % 0.5 % (0.0-4.0); LYMPH # 1.2 K/uL (1.0-4.3); LYMPH % 10.9 % (20.0-40.0); MEAN CELL VOLUME 95.2 fL (81.0-99.0); MEAN CORPUSCULAR HEMOGLOBIN 31.4 pg (27.0-31.0); MEAN PLATELET VOLUME 9.2 fL (7.2-11.7); MONO # 1.2 K/uL (0.0-0.8); MONO % 10.9 % (0.0-10.0); NEUT # 8.2 K/uL (1.8-7.0); NEUT % 77.4 % (50.0-75.0); RBC 3.1 Mil/uL (3.80-5.20); RED CELL DISTRIBUTION WIDTH 16.3 % (11.5-14.5); WHITE BLOOD COUNT 10.6 K/uL (4.8-10.8)
[2018-06-16 10:51] LABS: HEMOGLOBIN 9.7 g/dL (11.0-16.0)
--- NOTE | 2018-06-16 10:55 | C.PDOC ---
History Of Present Illness 53 y/o female with a PMHx of HTN, anemia, asthma, and chronic kidney disease (on dialysis T), presents today with 3 day history of jaw and neck stiffness. Patient states she cannot swallow or open her jaw secondary to the pain. Pain is worst over TMJ bilaterally, and is associated with swelling under the lower jaw and right side of face. It has gradually worsened over the last 3 days. States she was unable to put in her dentures this morning and can barely swallow or tolerate PO. Pt has had torticollis before, but never this severe. Has not taken any medication for pain. Of note, patient received dialysis this morning without complication, left AV fistula. Admission for right arm infected thrombosed AV fistula 2 weeks ago, surgery by Dr. Cool, who she saw in the office Wednesday for staple removal. Wound was not fully healed, advised to followup in 3-5 more days for removal. Pt denies drainage, redness, tenderness to the area. Wound clean, dressed, and wrapped. Denies any fever, chills, headache, visual changes, dizziness, chest pain, SOB, abdominal pain, sore throat, ear pain, eye pain, numbness, paresthesias, or any other associated complaints. PMD: Dr. Rk [employer]: Dr. Orantes Time Seen by Provider: 06/16/18 10:20 Chief Complaint (Nursing): ENT Problem History Per: Patient History/Exam Limitations: no limitations Onset/Duration Of Symptoms: Days Current Symptoms Are (Timing): Still Present Past Medical History Reviewed: Historical Data, Nursing Documentation, Vital Signs Vital Signs: Last Vital Signs Temp 99.8 F H 06/16/18 09:55 Pulse 90 06/16/18 09:55 Resp 16 06/16/18 09:55 BP 185/78 H 06/16/18 09:55 Pulse Ox 98 06/16/18 09:55 - Medical History PMH: Anemia, Asthma, HTN, End Stage Renal Disease, Chronic Kidney Disease (on HD) Surgical History: Endoscopy, - [facility] (05/29/18) EXCISION OF R LOW ARM SUBCU/FASCIA, OPEN APPROACH (05/29/18) REMOVAL OF AUTOL SUB FROM UP ART, OPEN APPROACH (05/29/18) Family History: States: Unknown Family Hx - Social History Hx Tobacco Use: No Hx Alcohol Use: No Hx Substance Use: No - Immunization History Hx Tetanus Toxoid Vaccination: No Hx Influenza Vaccination: Yes Hx Pneumococcal Vaccination: No Review Of Systems Except As Marked, All Systems Reviewed And Found Negative. Constitutional: Negative for: Fever, Chills Eyes: Negative for: Pain, Vision Change ENT: Positive for: Other (Bilateral TMJ pain, bilateral lateral neck pain, swelling). Negative for: Ear Pain, Throat Pain, Throat Swelling Cardiovascular: Negative for: Chest Pain, Palpitations, Edema, Light Headedness Respiratory: Negative for: Cough, Shortness of Breath, Wheezing Gastrointestinal: Negative for: Nausea, Vomiting, Abdominal Pain Musculoskeletal: Positive for: Neck Pain. Negative for: Back Pain, Hand Pain, Leg Pain, Foot Pain Skin: Negative for: Rash Neurological: Negative for: Weakness, Numbness, Seizures, Altered Mental Status, Headache, Dizziness Physical Exam - Physical Exam Appears: Well, Non-toxic, No Acute Distress Skin: Normal Color, Warm, Dry Head: Atraumatic, Normacephalic Eye(s): bilateral: Normal Inspection, PERRL, EOMI Ear(s): Bilateral: Normal, Other (TMJ tenderness) Nose: Normal Oral Mucosa: Moist Tongue: Normal Appearing, No Swelling Lips: Normal Appearing Throat: Other (unable to assess pharynx, patient unable to open jaw) Neck: Decreased ROM (secondary to pain), Trachea Midline, No Midline Cervical Tenderness, Paracervical Tenderness (bilateral with muscle spasm), No Step Off Deformity, Supple, Other (Tenderness over bilateral TMJ, Mild swelling superior to mandibular angle bilaterally R>L; NO meningeal sings, (-) brudzinski (-) kernig; NO distended neck veins) Lymphatic: No Adenopathy Chest: Symmetrical, No Deformity, No Ecchymosis, No Other (prominent veins) Cardiovascular: Rhythm Regular Respiratory: Normal Breath Sounds, No Rales, No Rhonchi, No Wheezing Gastrointestinal/Abdominal: Soft, No Tenderness, No Distention Back: Normal Inspection, No CVA Tenderness, No Vertebral Tenderness, No Paraspinal Tenderness Extremity: Normal ROM, No Tenderness, No Pedal Edema, No Calf Tenderness, Capillary Refill (<2s), No Deformity, No Swelling Extremity: Left: Other (Left upper extremity with fistula, (+) palpable thrill; right arm with well-healing wound, mauricio intact, no signs of infection), Bilateral: Atraumatic, Normal Color And Temperature, Normal ROM Pulses: Left Radial: Normal, Right Radial: Normal Neurological/Psych: Oriented x3, Normal Speech, Normal Cognition, Normal Cranial Nerves, Normal Motor, Normal Sensation, Other (No focal deficits) Gait: Steady Extremity: Right: No Drift, Left: No Drift, Upper: No Drift, Lower: No Drift ED Course And Treatment - Laboratory Results Result Diagrams: 06/16/18 10:41 06/16/18 10:41 ECG: Viewed By Me (Reviewed by Dr. Rose) ECG Rhythm: Sinus Rhythm ECG Interpretation: No Acute Changes Interpretation Of ECG: Rate 84; NSR; Normal Intervals; No STEMI Rate From EC O2 Sat by Pulse Oximetry: 98 (RA) Pulse Ox Interpretation: Normal - Radiology CXR: Viewed By Me CXR Interpretation: Yes: No Acute Disease, Cardiomegaly - CT Scan/US CT Neck Soft Tissue Other Rad Studies (CT/US): Read By Radiologist, Radiology Report Reviewed CT/US Interpretation: Name:CARMEN KIMBROUGH Exam Date:Jun 16, 2018 4:39:48 PM MANNY Wesley Modality Type:CT. Description:CT - NECK SOFT TISSUE. Gender:F Laterality:Not applicable. :65 Referring Physician:DEBORAH ROBLES PA-C. EXAM: CT Neck with Intravenous Contrast. CLINICAL HISTORY: Neck and jaw pain and swelling. dialysis pt. TECHNIQUE: Axial computed tomography images of the neck with intravenous contrast. Sagittal and coronal reformatted images were generated. 0.00 mGy-cm. CONTRAST: With; visipaque 320 100cc. COMPARISON: None provided. FINDINGS: PHARYNX: Unremarkable appearance of the nasopharynx, oropharyx, and hypopharynx. No pharyngeal mucosal based mass lesions. LARYNX: The larynx is unremarkable. The epiglottis appears normal. RETROPHARYNGEAL SPACE: No retropharyngeal soft tissue swelling or gas. SALIVARY GLANDS: No salivary gland abnormality evident. Unremarkable appearance of the parotid, submandibular, and sublingual glands. LYMPH NODES: No significant lymphadenopathy. THYROID: The thyroid gland is unremarkable. No nodule is evident. BONES: No aggressive appearing osseous lesion. No acute osseous abnormality. Note is made of radiopaque catheters at the right infraclavicular region and these are only partially visualized on the images. IMPRESSION: Unremarkable CT neck with IV contrast. Radiopaque catheters at the right infraclavicular region which only partially visualized on the current images. Clinical correlation advised. Medical Decision Making Medical Decision Making: Initial Plan: --CMP, CBC --CRP --ESR --PTT/PT --CT Neck Soft Tissue --EKG --Portable CXR 10:[address] Lim (nephrology covering Dr. Orantes) regarding CT scan, states patient can have IV contrast. 11:[address] Vale, radiology, who will not allow IV contrast unless patient can be dialyzed within 24 hours. 11:[address] Lim, who called and spoke with Dr. Vale herself. Patient's dialysis will be moved up to Wednesday or will be done inpatient if admitted. Patient now pending CT. Patient refusing tylenol for pain. 13:00 Patient continues to complain of pain to TMJ. Given home medication, Percocet. Patient able to swallow pill with small amount of water. Patient reports decreased pain after medication, still unable to fully open jaw. 16:[address] scan Patient with low grade fever 100.1, Tylenol PO ordered. 18:30 CT findings reviewed with patient and family. Flexeril given. 19:00 Patient continues with inability to fully open jaw, voices concerns about eating at home, unable to completely tolerate PO. 19:[address] Blevins who accepted patient for inpatient observation to med-surg for ENT consultation, morning dialysis, and further evaluation. Plan of care discussed with patient and family, who agree and understand necessity of inpatient observation. Patient resting comfortably in stretcher with stable vital signs at this time. Disposition - Disposition Disposition: HOSPITALIZED Disposition Time: 19:30 Condition: STABLE - Clinical Impression Clinical Impression: Intractable pain, Trismus - PA / WEBSITE PROGRAMMER / Resident Statement MD/DO has reviewed & agrees with the documentation as recorded. - Scribe Statement The provider has reviewed the documentation as recorded by the Isacc Garcia All medical record entries made by the Kenyaibvirginie were at my direction and personally dictated by me. I have reviewed the chart and agree that the record accurately reflects my personal performance of the history, physical exam, medical decision making, and the department course for this patient. I have also personally directed, reviewed, and agree with the discharge instructions and disposition. Decision To Admit - Pt Status Changed To: Hospital Disposition Of: Observation - . Bed Request Type: Regular Admitting Physician: Jordan Blevins Jr. Patient Diagnosis: Neck pain, ESRD (end stage renal disease), Trismus
[2018-06-16 11:01] LABS: ALB/GLOB RATIO 1.2 (1.0-2.1); ALBUMIN 4.2 g/dL (3.5-5.0); ALT/SGPT 16 U/L (9-52); AST/SGOT 23 U/L (14-36); BLOOD UREA NITROGEN 14 mg/dL (7-17); CALCIUM 8.3 mg/dl (8.6-10.4); GFR NON-AFRICAN AMERICAN 14
[2018-06-16 11:05] LABS: INR 1.1; PROTHROMBIN TIME 12.4 SECONDS (9.7-12.2)
[2018-06-16] MEDS ORDERED: Oxycodone/Acetaminophen 5/325 mg Tab PO STA (13:14)
[2018-06-16] MEDS ORDERED: Oxycodone/Acetaminophen 5/325 mg Tab ONE (13:49)
[2018-06-16] MEDS ORDERED: Iodixanol 320 MG/ML 100 ML BOTTLE IV ONE (16:20)
[2018-06-16] MEDS ORDERED: Vancomycin 1 gm/NS 200 ml 1 GM/200 ML BAG IVPB STA (22:18)
[2018-06-16] MEDS: AMPicillin 1 GM in Sodium Chloride 0.9% 100 ML IVPB ONE ×2 (22:48→23:40)
--- NOTE | 2018-06-17 02:20 | CP.PCM.HP ---
History of Present Illness - History of Present Illness History of Present Illness: H&P note for Dr Blevins cc: Jaw and neck stiffness Patient is a 53 year old female with pmhx of HTN, asthma, CKD on HD () that comes to the ED for 3 days of jaw and neck stiffiness and pain. Patient state it started on wednesday with moderate pain on neck region bilaterally, next day patient noticed difficulty opening her jaw to eat or drink, having difficulty putting her lower dentures in place. Patient noticed her side of the face bilaterally to be swollen when she went for hemodialysis as well as throbbing pain that will radiate to the top of her scalp as a shooting pain. Patient states the shooting pain to the top of head has gone away but the throbbing remains. Patient took flexeril but has not helped with the pain or stiffness. Patient states she was at the hospital recently for infection on forearm where an old AV shunt was placed. Patient had her old shunt removed by Dr Cool and was sent with cipro PO 500mg for 10 days, which she completed the treatment. Patient admits to spending time for her grandaugther, who was sick with an ear infection and coughing. Patient denies any fevers, chills, chest pain, shortness of breath, headaches, dizziness, vision changes, hearing changes, ear discharges, lacerations inside the mouth or throat, n/v/d/c, back pain, rash, bleeding or weight loss. 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 Meds: carvedilol, amlodipine, phoslo, multvitamins Present on Admission - Present on Admission Any Indicators Present on Admission: No Review of Systems - Review of Systems All systems: reviewed and no additional remarkable complaints except Review of Systems: as stated in HPI Past Patient History - Past Medical History & Family History Past Medical History?: Yes - Past Social History Smoking Status: Never Smoked - CARDIAC Hx Hypertension: Yes - PULMONARY Hx Asthma: Yes - NEUROLOGICAL Hx Neurological Disorder: No - HEENT Hx HEENT Problems: No - RENAL Hx Chronic Kidney Disease: Yes (on HD) - ENDOCRINE/METABOLIC Hx Endocrine Disorders: No - HEMATOLOGICAL/ONCOLOGICAL Hx Anemia: Yes - INTEGUMENTARY Hx Dermatological Problems: No - MUSCULOSKELETAL/RHEUMATOLOGICAL Hx Falls: No - GASTROINTESTINAL Hx Gastrointestinal Disorders: No - GENITOURINARY/GYNECOLOGICAL Hx Genitourinary Disorders: No - PSYCHIATRIC Hx Substance Use: No - SURGICAL HISTORY Hx Surgeries: Yes Hx Kidney Transplant: Yes (x2) Hx Vascular Access Device: Yes (RT arm new - Lt arm old) - ANESTHESIA Hx Anesthesia: Yes Hx Anesthesia Reactions: No Hx Malignant Hyperthermia: No Meds Allergies/Adverse Reactions: Allergies Allergy/AdvReac Type Severity Reaction Status Date / Time latex Allergy Intermediate RASH Verified 06/16/18 10:07 Physical Exam - Constitutional Appears: Non-toxic, No Acute Distress - Head Exam Head Exam: ATRAUMATIC, NORMAL INSPECTION, NORMOCEPHALIC - Eye Exam Eye Exam: EOMI, Normal appearance, PERRL - ENT Exam ENT Exam: Mucous Membranes Moist, Normal Oropharynx Additional comments: TMJ/ parotid region edema observed bilaterally, tenderness to light palpation lateral side of face, medial to tragus of ear bilateral, more pronounced on right side than left side - Expanded ENT Exam Expanded Mouth exam: moist, normal external inspection, tongue normal. absent: drooling, laceration - Neck Exam Neck exam: Positive for: Lymphadenopathy, Tenderness Additional comments: Limited Active ROM on extension rotation and side bending Lymphadenopathy palpated inframandibular area bilaterally and anterior neck, SCM area - Respiratory Exam Respiratory Exam: Clear to Auscultation Bilateral, NORMAL BREATHING PATTERN - Cardiovascular Exam Cardiovascular Exam: Tachycardia, REGULAR RHYTHM, +S1, +S2, Systolic Murmur Additional comments: systolic murmur, loudest heard on aortic valve area, 3/6 - GI/Abdominal Exam GI & Abdominal Exam: Normal Bowel Sounds, Soft. absent: Distended, Tenderness - Extremities Exam Extremities exam: Positive for: full ROM, normal inspection. Negative for: joint swelling, pedal edema, tenderness Additional comments: left arm AV shunt right arm wound from removal AV shunt covered with dressing, c/d/i - Back Exam Back exam: FULL ROM, NORMAL INSPECTION - Neurological Exam Neurological exam: Alert, CN II-XII Intact, Oriented x3 - Psychiatric Exam Psychiatric exam: Normal Affect, Normal Mood - Skin Skin Exam: Dry, Intact, Normal Color, Warm Results - Vital Signs Recent Vital Signs: Last Vital Signs Temp 98.3 F 12/13/18 23:47 Pulse 79 06/16/18 23:47 Resp 16 06/16/18 23:47 BP 128/61 06/16/18 23:47 Pulse Ox 98 06/17/18 00:51 - Labs Result Diagrams: 06/16/18 10:41 06/16/18 10:41 Labs: Laboratory Results - last 24 hr 06/16/18 06/16/18 06/16/18 10:41 10:41 10:41 WBC 10.6 RBC 3.10 L Hgb 9.7 L D Hct 29.5 L MCV 95.2 MCH 31.4 H MCHC 33.0 RDW 16.3 H Plt Count 178 D MPV 9.2 Neut % (Auto) 77.4 H Lymph % (Auto) 10.9 L Wetzel % (Auto) 10.9 H Eos % (Auto) 0.5 Baso % (Auto) 0.3 Neut # (Auto) 8.2 H Lymph # (Auto) 1.2 Wetzel # (Auto) 1.2 H Eos # (Auto) 0.1 Baso # (Auto) 0.0 ESR 75 H PT 12.4 H INR 1.1 APTT 33 Sodium 134 Potassium 4.2 Chloride 87 L Carbon Dioxide 34 H Anion Gap 18 BUN 14 Creatinine 3.4 H Est GFR ( Amer) 17 Est GFR (Non-Af Amer) 14 Random Glucose 96 Calcium 8.3 L Total Bilirubin 0.8 AST 23 ALT 16 Alkaline Phosphatase 74 C-Reactive Protein > 90.00 H Total Protein 7.7 Albumin 4.2 Globulin 3.5 Albumin/Globulin Ratio 1.2 Influenza Typ A,B (EIA) 06/16/18 18:41 WBC RBC Hgb Hct MCV MCH MCHC RDW Plt Count MPV Neut % (Auto) Lymph % (Auto) Wetzel % (Auto) Eos % (Auto) Baso % (Auto) Neut # (Auto) Lymph # (Auto) Wetzel # (Auto) Eos # (Auto) Baso # (Auto) ESR PT INR APTT Sodium Potassium Chloride Carbon Dioxide Anion Gap BUN Creatinine Est GFR ( Amer) Est GFR (Non-Af Amer) Random Glucose Calcium Total Bilirubin AST ALT Alkaline Phosphatase C-Reactive Protein Total Protein Albumin Globulin Albumin/Globulin Ratio Influenza Typ A,B (EIA) Negative for flu a/b Assessment & Plan - Assessment and Plan (Free Text) Plan: Neck pain and swelling r/o bacteremia vs endocarditis vs local neck infection -Neck soft tissue CT - unremarkable - in ED: Tylenol 975mg and 325mg PO x1, flexeril, percocet - labs: Wbc 10.6, vitals wnl - EKG - unremarkable -Echo - in am - vanco 1g x 1 dose - gentamycin 80mg x 1 - ampicillin 1 gm x 1 - blood cultures - ENT consult - Dr Gallego - help is appreciated CKD on HD T--S - Patient needs dialysis tomorrow due to IV contrast administered - consult - Dr Orantes - help is appreciated - Phoslo home med Asthma - currently asymptomatic - does not use medications at home HTN - Carvedilol 12.5 BID - amlodipine 1x day Prophylaxis - Speech therapy screen - wound care for Right UE wound s/p AV shunt removal - DVT: SCDs - GI: protonix 40mg IVP QD Plan discussed with Dr Gen Sanchez PGY-1 - Date & Time Date: 06/16/18 Time: 21:45
--- NOTE | 2018-06-17 06:55 | CARD ---
APPROVED REPORT Date of service: 06/16/2018 EKG Measurement Heart [id number] <Conclusion> Normal sinus rhythm Left axis deviation Low voltage QRS Cannot rule out Anterior infarct, age undetermined Abnormal ECG
--- NOTE | 2018-06-17 08:33 | CT ---
Date of service: 06/16/2018 PROCEDURE: CT NECK WITH CONTRAST HISTORY: neck pain, swelling COMPARISON: None available. TECHNIQUE: CT of the neck with intravenous contrast. Coronal and sagittal reformats generated. Intravenous contrast dose: Radiation dose: Total exam DLP = 434.32 mGy-cm. This CT exam was performed using one or more of the following dose reduction techniques: Automated exposure control, adjustment of the mA and/or kV according to patient size, and/or use of iterative reconstruction technique. FINDINGS: NASOPHARYNX: Unremarkable. SUPRAHYOID NECK: Unremarkable oropharynx, oral cavity, parapharyngeal space and retropharyngeal space. INFRAHYOID NECK: Unremarkable larynx, hypopharynx, and supraglottic space. Vocal cords intact. MASS: None. GLANDS: Parotid and submandibular glands unremarkable. Normal size thyroid gland, without nodule. LYMPH NODES: Normal. No lymphadenopathy. CERVICAL SPINE: No fracture or focal lesion. VASCULAR STRUCTURES: Unremarkable. OTHER FINDINGS: None. IMPRESSION: Unremarkable contrast enhanced CT of the neck.
--- NOTE | 2018-06-17 10:44 | RAD ---
Date of service: 06/16/2018 HISTORY: febrile COMPARISON: 05/30/2018 FINDINGS: LUNGS: The lungs are hyperinflated and there is peribronchial thickening with chronic changes in both lungs. There is moderate pulmonary venous congestion. PLEURA: No pleural effusions or pneumothorax. CARDIOVASCULAR: Persistent severe cardiomegaly. No aortic atherosclerotic calcification present. OSSEOUS STRUCTURES: Within normal limits for the patient's age. VISUALIZED UPPER ABDOMEN: Normal. OTHER FINDINGS: None. IMPRESSION: No active pulmonary disease. COPD. Persistent severe cardiomegaly and pulmonary venous congestion.
[2018-06-17 11:46] LABS: BASO # 0.1 K/uL (0.0-0.2); BASO % 0.8 % (0.0-2.0); EOS # 0.1 K/uL (0.0-0.7); EOS % 1.5 % (0.0-4.0); LYMPH # 1.3 K/uL (1.0-4.3); LYMPH % 17.8 % (20.0-40.0); MEAN CELL VOLUME 95.8 fL (81.0-99.0); MEAN CORPUSCULAR HEMOGLOBIN 31.6 pg (27.0-31.0); MEAN CORPUSCULAR HGB CONC 32.9 g/dL (33.0-37.0); MEAN PLATELET VOLUME 9.1 fL (7.2-11.7); MONO # 0.7 K/uL (0.0-0.8); MONO % 9.5 % (0.0-10.0); NEUT # 5.1 K/uL (1.8-7.0); NEUT % 70.4 % (50.0-75.0); RBC 3.18 Mil/uL (3.80-5.20); RED CELL DISTRIBUTION WIDTH 16.4 % (11.5-14.5); WHITE BLOOD COUNT 7.2 K/uL (4.8-10.8)
[2018-06-17 12:31] LABS: ALB/GLOB RATIO 1.2 (1.0-2.1); ALBUMIN 4.1 g/dL (3.5-5.0); CALCIUM 7.8 mg/dl (8.6-10.4)
--- NOTE | 2018-06-17 13:21 | CARD ---
APPROVED REPORT Date of service: 06/17/2018 EXAM: Two-dimensional and M-mode echocardiogram with Doppler and color Doppler. Other Information Quality : TDSRhythm : INDICATION Infection:Rule out subacute bacterial endocarditis COPD AORTIC MURMUR 2D DIMENSIONS IVSd1.0 (0.7-1.1cm)LVDd4.4 (3.9-5.9cm) PWd0.9 (0.7-1.1cm)LA Mffseh21 (18-58mL) LVDs2.6 (2.5-4.0cm)FS (%) 42.0 % LVEF (%)73.1 (>50%)LVEF (Ty's)66.26 % M-Mode DIMENSIONS Left Atrium (MM)4.22 (2.5-4.0cm)IVSd0.98 (0.7-1.1cm) Aortic Root3.01 (2.2-3.7cm)LVDd4.53 (4.0-5.6cm) Aortic Cusp Exc.2.10 (1.5-2.0cm)PWd0.85 (0.7-1.1cm) FS (%) 41 %LVDs2.68 (2.0-3.8cm) TAPSE21.35 cmLVEF (%)72 (>50%) Mitral Valve MV E Rhzctivp49.3cm/sMV A Ewswqbef96.7cm/sE/A ratio0.8 TDI Lateral E' Peak V13.49cm/sMedial E' Peak V5.19cm/sE/Lateral E'5.7 E/Medial E'14.9 Tricuspid Valve TR Peak [id number]/sTR Peak [id number] <Conclusion> Suboptimal study Left ventricle: thickness: normal; size: normal; overall ejection fraction: 65%: diastolic filling pressures: normal Mitral valve: annulus: normal: leaflets: normal: excursion: normal; no significant trans-mitral gradient: No significant incompetence: left atrium: dilated Aortic valve: leaflets: normal: excursion: normal; no significant trans-aortic gradient: No significant incompetence: aortic root: normal Right sided Structures: Dilated; normal TAPSEPulmonary valve: normal; no significant incompetence; Tricuspid valve: normal; moderate to severe incompetence: Intra-cardiac hemodynamics: pulmonary systolic pressures:75mmHg; central venous pressures: normal; no definitiive evidence of a shunt Trace pericardial effusion
--- NOTE | 2018-06-17 13:28 | CP.PCM.PN ---
Subjective - Date & Time of Evaluation Date of Evaluation: 06/17/18 Time of Evaluation: 13:26 - Subjective Subjective: PGY-1 Medicine Progress Note for Dr. Blevins's service Patient seen and examined at bedside. Patient reports mild pain with swallowing, decreased neck pain, unchanged swelling in the mouth. Patient wanted to try liquid foods as it is difficult for her to open her mouth. Patient denies fever, chills, chest pain, sob, n/v, constipation or diarrhea, and dysuria. Objective - Vital Signs/Intake and Output Vital Signs (last 24 hours): Temp Pulse Resp BP Pulse Ox 98.5 F 78 20 150/83 97 06/17/18 07:29 06/17/18 07:29 06/17/18 07:29 06/17/18 10:39 06/17/18 09:09 Intake and Output: 06/17/18 06/17/18 06:59 18:59 Intake Total 640 Balance 640 - Medications Medications: Current Medications Acetaminophen (Tylenol 325mg Tab) 650 mg PO Q6 PRN PRN Reason: Pain, moderate (4-7) Last Admin: 06/17/18 00:35 Dose: 650 mg Amlodipine Besylate (Norvasc) 1 mg PO BID [facility] Last Admin: 06/17/18 10:39 Dose: 1 mg Calcium Acetate (Phoslo) 667 mg PO TID [facility] Last Admin: 06/17/18 10:39 Dose: 667 mg Carvedilol (Coreg) 12.5 mg PO DAILY [facility] Last Admin: 06/17/18 10:39 Dose: 12.5 mg Heparin Sodium (Porcine) (Heparin) 5,000 units SC Q12H [facility] Last Admin: 06/17/18 10:42 Dose: 5,000 units Pantoprazole Sodium (Protonix Inj) 40 mg IVP DAILY [facility] Last Admin: 06/17/18 10:41 Dose: 40 mg Pneumococcal Polyvalent Vaccine (Pneumovax 23 Vaccine) 0.5 ml IM .ONCE ONE Stop: 06/18/18 10:01 - Labs Labs: 06/17/18 11:39 06/17/18 11:39 PT 12.4 SECONDS (9.7-12.2) H 06/16/18 10:41 INR 1.1 06/16/18 10:41 APTT 33 SECONDS (21-34) 06/16/18 10:41 - Constitutional Appears: Non-toxic, No Acute Distress - Head Exam Head Exam: NORMAL INSPECTION, NORMOCEPHALIC Additional comments: swelling bilateral parotid region - Eye Exam Eye Exam: EOMI, Normal appearance. absent: Nystagmus, Scleral icterus - ENT Exam ENT Exam: Mucous Membranes Moist - Neck Exam Neck Exam: Normal Inspection. absent: Full ROM, Tenderness - Respiratory Exam Respiratory Exam: Clear to Ausculation Bilateral, NORMAL BREATHING PATTERN. absent: Rales, Rhonchi, Wheezes - Cardiovascular Exam Cardiovascular Exam: REGULAR RHYTHM, +S1, +S2. absent: Tachycardia - GI/Abdominal Exam GI & Abdominal Exam: Soft, Normal Bowel Sounds. absent: Distended, Firm, Guarding, Rigid, Tenderness - Extremities Exam Extremities Exam: Normal Inspection. absent: Calf Tenderness, Pedal Edema Additional comments: audible bruit on right arm left forearm dressed in bandaid - Neurological Exam Neurological Exam: Awake, Oriented x3 Assessment and Plan - Assessment and Plan (Free Text) Assessment: Patient is a 53 year old female with pmhx of HTN, asthma, CKD on HD () that comes to the ED for 3 days of jaw and neck stiffiness and pain. Patient had CT scan of neck which was unremarkable. Nephrology was consulted due to patient being an HD patient. ENT was consulted for bilateral swelling near mouth. Echo was ordered to rule out endocarditis- showed no signs of endocarditis. Plan: Bilateral mouth swelling ENT consulted- Dr. Gallego- recommendations appreciated Neck soft tissue CT - unremarkable EKG - unremarkable Echo - EF 65; diastolic filling pressures normal; LA- dilated; Aortic valve- leaflets normal, excursion normal; no shunt; trace pericardial effusion Blood cultures pending 1x dose of multiple ABX Afebrile; no leukocytosis Neck Pain Likely torticollis as patient stated she slept awkwardly because of her right forearm CKD on HD Nephrology Consult: Dr. Orantes- recommendations appreciated Dialysis today due to contrast Phoslo 667 mg po tid [facility] Asthma Currently asymptomatic does not use medications at home HTN Carvedilol 12.5 BID Norvasc 1mg po bid [facility] Prophylaxis Speech therapy screen wound care for Right UE wound s/p AV shunt removal DVT: SCDs; Heparin 5000 units sc q12h GI: protonix 40mg IVP QD Madaser Marquis PGY-1 Medical Management d/w Dr. Blevins
--- NOTE | 2018-06-17 14:29 | CP.PCM.CON ---
History of Present Illness - History of Present Illness History of Present Illness: Patient is a 53 year old female with pmhx of HTN, asthma, CKD on HD (-) that comes to the ED for 3 days of jaw and neck stiffiness and pain. Patient state it started on wednesday with moderate pain on neck region bi laterally, next day patient noticed difficulty opening her jaw to eat or drink, having difficulty putting her lower dentures in place. Patient noticed her side of the face bilaterally to be swollen when she went for hemodialysis as well as throbbing pain that will radiate to the top of her scalp as a shooting pain. Patient states the shooting pain to the top of head has gone away but the throbbing remains. Patient took flexeril but has not helped with the pain or stiffness. Patient states she was at the hospital recently for infection on right forearm where an old AV shunt was placed. Patient had her old shunt removed by Dr Cool and was sent with cipro PO 500mg for 10 days, which she completed the treatment. Patient admits to spending time for her grandaugther, who was sick with an ear infection and coughing. Patient denies any fevers, chills, chest pain, shortness of breath, headaches, dizziness, vision changes, hearing changes, ear discharges, lacerations inside the mouth or throat, n/v/d/c, back pain, rash, bleeding or weight loss. All: Latex Pmhx: as stated in HPI Shx: Kidney transplant x 2 (Rt 1998, Lf 2008), left leg shunt Fmhx: Grandmother breast cancer sochx: denes tobacco, alcohol or drug use. Meds: carvedilol, amlodipine, phoslo, multvitamins Review of Systems - Review of Systems All systems: reviewed and no additional remarkable complaints except (as per hpi) Past Patient History - Past Medical History & Family History Past Medical History?: Yes - Past Social History Smoking Status: Never Smoked - CARDIAC Hx Hypertension: Yes - PULMONARY Hx Asthma: Yes - NEUROLOGICAL Hx Neurological Disorder: No - HEENT Hx HEENT Problems: No - RENAL Hx Chronic Kidney Disease: Yes (on HD) - ENDOCRINE/METABOLIC Hx Endocrine Disorders: No - HEMATOLOGICAL/ONCOLOGICAL Hx Anemia: Yes - INTEGUMENTARY Hx Dermatological Problems: No - MUSCULOSKELETAL/RHEUMATOLOGICAL Hx Falls: No - GASTROINTESTINAL Hx Gastrointestinal Disorders: No - GENITOURINARY/GYNECOLOGICAL Hx Genitourinary Disorders: No - PSYCHIATRIC Hx Substance Use: No - SURGICAL HISTORY Hx Surgeries: Yes Hx Kidney Transplant: Yes (x2) Hx Vascular Access Device: Yes (RT arm new - Lt arm old) - ANESTHESIA Hx Anesthesia: Yes Hx Anesthesia Reactions: No Hx Malignant Hyperthermia: No Meds Allergies/Adverse Reactions: Allergies Allergy/AdvReac Type Severity Reaction Status Date / Time latex Allergy Intermediate RASH Verified 06/16/18 10:07 - Medications Medications: Current Medications Acetaminophen (Tylenol 325mg Tab) 650 mg PO Q6 PRN PRN Reason: Pain, moderate (4-7) Last Admin: 06/17/18 00:35 Dose: 650 mg Amlodipine Besylate (Norvasc) 1 mg PO BID [facility] Last Admin: 06/17/18 10:39 Dose: 1 mg Calcium Acetate (Phoslo) 667 mg PO TID [facility] Last Admin: 06/17/18 13:52 Dose: 667 mg Carvedilol (Coreg) 12.5 mg PO DAILY [facility] Last Admin: 06/17/18 10:39 Dose: 12.5 mg Heparin Sodium (Porcine) (Heparin) 5,000 units SC Q12H [facility] Last Admin: 06/17/18 10:42 Dose: 5,000 units Pantoprazole Sodium (Protonix Inj) 40 mg IVP DAILY [facility] Last Admin: 06/17/18 10:41 Dose: 40 mg Pneumococcal Polyvalent Vaccine (Pneumovax 23 Vaccine) 0.5 ml IM .ONCE ONE Stop: 06/18/18 10:01 Results - Vital Signs Recent Vital Signs: Last Vital Signs Temp 98.5 F 06/17/18 07:29 Pulse 78 06/17/18 07:29 Resp 20 06/17/18 07:29 BP 150/83 06/17/18 10:39 Pulse Ox 97 06/17/18 09:09 - Labs Result Diagrams: 06/17/18 11:39 06/17/18 11:39 Labs: Laboratory Results - last 24 hr 06/16/18 06/17/18 06/17/18 18:41 11:39 11:39 WBC 7.2 RBC 3.18 L Hgb 10.0 L Hct 30.5 L MCV 95.8 MCH 31.6 H MCHC 32.9 L RDW 16.4 H Plt Count 211 MPV 9.1 Neut % (Auto) 70.4 Lymph % (Auto) 17.8 L [place] % (Auto) 9.5 Eos % (Auto) 1.5 Baso % (Auto) 0.8 Neut # (Auto) 5.1 Lymph # (Auto) 1.3 [place] # (Auto) 0.7 Eos # (Auto) 0.1 Baso # (Auto) 0.1 Sodium 135 Potassium 5.2 Chloride 88 L Carbon Dioxide 29 Anion Gap 23 H BUN 26 H Creatinine 5.9 H Est GFR ( Amer) 9 Est GFR (Non-Af Amer) 7 Random Glucose 103 Calcium 7.8 L Total Bilirubin 0.9 AST 33 ALT 16 Alkaline Phosphatase 72 Total Protein 7.6 Albumin 4.1 Globulin 3.5 Albumin/Globulin Ratio 1.2 Influenza Typ A,B (EIA) Negative for flu a/b Assessment & Plan (1) Neck pain Status: Acute (2) ESRD (end stage renal disease) Status: Chronic Priority: Medium (3) COPD (chronic obstructive pulmonary disease) Status: Acute (4) Torticollis, acute Status: Acute - Assessment and Plan (Free Text) Assessment: HD today and mwf ENT management, pain control. encourage po fluids bp acceptable hgb acceptable
--- NOTE | 2018-06-17 23:58 | CON ---
DATE: 06/17/2018 REASON FOR CONSULTATION: Facial pain. REQUESTING PHYSICIAN: Jordan Blevins MD HISTORY OF PRESENT ILLNESS: This is a 53-year-old female with multiple-day history of pain along the mandible and the TMJ, bilateral, constant, moderate in intensity. The patient also has trismus, moderate, constant in intensity. There is mild frothing both sides for few days. No hearing loss. No nasal congestion. No hoarseness. No shortness of breath. PAST MEDICAL HISTORY: As noted in the chart by me. MEDICATIONS: As noted in the chart by me. PHYSICAL EXAMINATION: HEAD: Atraumatic and normocephalic. FACE: Good facial movements bilaterally. CONSTITUTIONAL: Well fed, well nourished. COMMUNICATION: Communicates well and appropriately. EXTERNAL NOSE AND EARS: No masses, no lesions, no erythema, and no edema. INTERNAL NOSE: Deviated septum. No masses, no lesions, no erythema, and no edema. ORAL CAVITY AND OROPHARYNX: Unable to examine secondary to trismus. No masses, no lesions, no erythema, and no edema. LIPS AND GUMS: Limited exam secondary to trismus. No masses, no lesions, no erythema, and no edema. NECK: Supple. THYROID: No thyromegaly. No goiter. LYMPH NODES: No lymphadenopathy of the neck. DIAGNOSTIC DATA: CAT scan of the neck with contrast was done and it is normal. ASSESSMENT AND PLAN: 1. Facial pain. 2. Deviated septum. 3. Lockjaw or trismus. The patient states that she had a dental work done few weeks ago, possibly this is related to that. The patient needs to have an oral surgery consult. Floyd Gallego MD
[2018-06-18 07:15] LABS: BASO # 0.1 K/uL (0.0-0.2); BASO % 1.2 % (0.0-2.0); EOS # 0.1 K/uL (0.0-0.7); EOS % 2.4 % (0.0-4.0); HEMOGLOBIN 8.9 g/dL (11.0-16.0); LYMPH # 1.1 K/uL (1.0-4.3); LYMPH % 24.4 % (20.0-40.0); MEAN CORPUSCULAR HEMOGLOBIN 31.1 pg (27.0-31.0); MEAN CORPUSCULAR HGB CONC 32.4 g/dL (33.0-37.0); MEAN PLATELET VOLUME 8.4 fL (7.2-11.7); MONO # 0.5 K/uL (0.0-0.8); MONO % 10.3 % (0.0-10.0); NEUT # 2.8 K/uL (1.8-7.0); NEUT % 61.7 % (50.0-75.0); NRBC % 0.1 % (0.0-2.0); RBC 2.85 Mil/uL (3.80-5.20); RED CELL DISTRIBUTION WIDTH 16.1 % (11.5-14.5); WHITE BLOOD COUNT 4.6 K/uL (4.8-10.8)
[2018-06-18 07:23] LABS: ALB/GLOB RATIO 1.1 (1.0-2.1); ALBUMIN 3.6 g/dL (3.5-5.0); CALCIUM 7.9 mg/dl (8.6-10.4)
--- NOTE | 2018-06-18 09:24 | CP.PCM.PN ---
Subjective - Date & Time of Evaluation Date of Evaluation: 06/18/18 Time of Evaluation: 09:21 - Subjective Subjective: feels a little better able to move neck can open mouth little but still with stiffness left side of jaw ROS- as per HPI, rest 10 point ROS negative Objective - Vital Signs/Intake and Output Vital Signs (last 24 hours): Temp Pulse Resp BP Pulse Ox 99.1 F 78 20 142/80 96 06/18/18 03:00 06/18/18 03:00 06/18/18 03:00 06/18/18 03:00 06/18/18 03:00 Intake and Output: 06/18/18 06/18/18 06:59 18:59 Intake Total 240 Balance 240 - Medications Medications: Current Medications Acetaminophen (Tylenol 325mg Tab) 650 mg PO Q6 PRN PRN Reason: Pain, moderate (4-7) Last Admin: 06/17/18 18:05 Dose: 650 mg Amlodipine Besylate (Norvasc) 1 mg PO BID [facility] Last Admin: 06/17/18 18:06 Dose: 1 mg Calcium Acetate (Phoslo) 667 mg PO TID [facility] Last Admin: 06/17/18 18:05 Dose: 667 mg Carvedilol (Coreg) 12.5 mg PO DAILY [facility] Last Admin: 06/17/18 10:39 Dose: 12.5 mg Heparin Sodium (Porcine) (Heparin) 5,000 units SC Q12H [facility] Last Admin: 06/17/18 21:45 Dose: 5,000 units Pantoprazole Sodium (Protonix Inj) 40 mg IVP DAILY [facility] Last Admin: 06/17/18 10:41 Dose: 40 mg Pneumococcal Polyvalent Vaccine (Pneumovax 23 Vaccine) 0.5 ml IM .ONCE ONE Stop: 06/18/18 10:01 - Labs Labs: 06/18/18 07:04 06/18/18 07:04 PT 12.4 SECONDS (9.7-12.2) H 06/16/18 10:41 INR 1.1 06/16/18 10:41 APTT 33 SECONDS (21-34) 06/16/18 10:41 - Constitutional Appears: Well, Non-toxic - Head Exam Head Exam: ATRAUMATIC, NORMOCEPHALIC - Eye Exam Eye Exam: EOMI, PERRL - ENT Exam ENT Exam: Mucous Membranes Moist Additional comments: unable to open mouth completely tenderness in front of left ear - Respiratory Exam Respiratory Exam: Clear to Ausculation Bilateral. absent: Rhonchi, Wheezes - Cardiovascular Exam Cardiovascular Exam: REGULAR RHYTHM. absent: JVD - GI/Abdominal Exam GI & Abdominal Exam: Soft. absent: Tenderness - Extremities Exam Extremities Exam: Full ROM. absent: Joint Swelling - Neurological Exam Neurological Exam: Alert, Awake, Oriented x3 - Psychiatric Exam Psychiatric exam: Normal Affect, Normal Mood - Skin Skin Exam: Dry, Intact Assessment and Plan (1) Neck pain Status: Acute (2) Trismus Status: Acute (3) ESRD (end stage renal disease) Status: Chronic (4) COPD (chronic obstructive pulmonary disease) Status: Acute - Assessment and Plan (Free Text) Plan: maintain HD schedule, TTS HD today BP stable ENT note noted- unclear etiology agree with oral evaluation warm compress will give muscle relaxant
[2018-06-18] MEDS ORDERED: Pneumococcal 23-Valent Vaccine IM ONE ×2 (10:00→15:06)
--- NOTE | 2018-06-18 10:12 | CP.PCM.DIS ---
Provider - Provider Date of Admission: 06/16/18 19:29 Attending physician: Jordan Blevins Jr, MD Consults: 06/16/18 20:14 Nephrology Consult Stat Comment: Consulting Provider: Indra Orantes Consulting Physician: Indra Orantes Reason for Consult: Inpatient Dialysis 06/16/18 22:16 ENT [Otolaryngology Consult] Routine Consulting Provider: Floyd Gallego Consulting Physician: Floyd Gallego Reason for Consult: Jaw/neck stiffness, swelling face, unable to open mouth 06/17/18 00:30 Wound Care [Nursing Referral for Wound Care] Routine Comment: Physician Instructions: Reason For Exam: R forearm previous dialysis shunt incision Time Spent in preparation of Discharge (in minutes): 55 Diagnosis - Discharge Diagnosis (1) TMJ (temporomandibular joint syndrome) Status: Acute Priority: Low Hospital Course - Lab Results Lab Results: Micro Results 06/16/18 07:24 Blood-Venous Blood Culture - Preliminary NO GROWTH AFTER 24 HOURS 06/16/18 07:24 Blood-Venous Blood Culture - Preliminary NO GROWTH AFTER 24 HOURS Most Recent Lab Values WBC 4.6 K/uL (4.8-10.8) L 06/18/18 07:04 RBC 2.85 Mil/uL (3.80-5.20) L 06/18/18 07:04 Hgb 8.9 g/dL (11.0-16.0) L 06/18/18 07:04 Hct 27.4 % (34.0-47.0) L 06/18/18 07:04 MCV 96.0 fL (81.0-99.0) 06/18/18 07:04 MCH 31.1 pg (27.0-31.0) H 06/18/18 07:04 MCHC 32.4 g/dL (33.0-37.0) L 06/18/18 07:04 RDW 16.1 % (11.5-14.5) H 06/18/18 07:04 Plt Count 187 K/uL (130-400) 06/18/18 07:04 MPV 8.4 fL (7.2-11.7) 06/18/18 07:04 Neut % (Auto) 61.7 % (50.0-75.0) 06/18/18 07:04 Lymph % (Auto) 24.4 % (20.0-40.0) 06/18/18 07:04 [place] % (Auto) 10.3 % (0.0-10.0) H 06/18/18 07:04 Eos % (Auto) 2.4 % (0.0-4.0) 06/18/18 07:04 Baso % (Auto) 1.2 % (0.0-2.0) 06/18/18 07:04 Neut # (Auto) 2.8 K/uL (1.8-7.0) 06/18/18 07:04 Lymph # (Auto) 1.1 K/uL (1.0-4.3) 06/18/18 07:04 [place] # (Auto) 0.5 K/uL (0.0-0.8) 06/18/18 07:04 Eos # (Auto) 0.1 K/uL (0.0-0.7) 06/18/18 07:04 Baso # (Auto) 0.1 K/uL (0.0-0.2) 06/18/18 07:04 ESR 75 mm/hr (0-20) H 06/16/18 10:41 PT 12.4 SECONDS (9.7-12.2) H 06/16/18 10:41 INR 1.1 06/16/18 10:41 APTT 33 SECONDS (21-34) 06/16/18 10:41 Sodium 139 mmol/L (132-148) 06/18/18 07:04 Potassium 4.9 mmol/L (3.6-5.2) 06/18/18 07:04 Chloride 96 mmol/L (98-107) L 06/18/18 07:04 Carbon Dioxide 32 mmol/L (22-30) H 06/18/18 07:04 Anion Gap 15 (10-20) 06/18/18 07:04 BUN 17 mg/dL (7-17) 06/18/18 07:04 Creatinine 4.8 mg/dL (0.7-1.2) H 06/18/18 07:04 Est GFR ( Amer) 11 06/18/18 07:04 Est GFR (Non-Af Amer) 9 06/18/18 07:04 Random Glucose 91 mg/dL (65-105) 06/18/18 07:04 Calcium 7.9 mg/dl (8.6-10.4) L 06/18/18 07:04 Total Bilirubin 0.6 mg/dL (0.2-1.3) 06/18/18 07:04 AST 18 U/L (14-36) 06/18/18 07:04 ALT 17 U/L (9-52) 06/18/18 07:04 Alkaline Phosphatase 68 U/L (38-126) 06/18/18 07:04 C-Reactive Protein > 90.00 mg/L (0.0-9.9) H 06/16/18 10:41 Total Protein 6.8 g/dL (6.3-8.3) 06/18/18 07:04 Albumin 3.6 g/dL (3.5-5.0) 06/18/18 07:04 Globulin 3.2 gm/dL (2.2-3.9) 06/18/18 07:04 Albumin/Globulin Ratio 1.1 (1.0-2.1) 06/18/18 07:04 Influenza Typ A,B (EIA) Negative for flu a/b (NEGATIVE) 06/16/18 18:41 - Hospital Course Hospital Course: Upon Admission: cc: Jaw and neck stiffness Patient is a 53 year old female with pmhx of HTN, asthma, CKD on HD (-) that comes to the ED for 3 days of jaw and neck stiffiness and pain. Patient state it started on wednesday with moderate pain on neck region bilaterally, next day patient noticed difficulty opening her jaw to eat or drink, having difficulty putting her lower dentures in place. Patient noticed her side of the face bilaterally to be swollen when she went for hemodialysis as well as throbbing pain that will radiate to the top of her scalp as a shooting pain. Patient states the shooting pain to the top of head has gone away but the throbbing remains. Patient took flexeril but has not helped with the pain or stiffness. Patient states she was at the hospital recently for infection on right forearm where an old AV shunt was placed. Patient had her old shunt removed by Dr Cool and was sent with cipro PO 500mg for 10 days, which she completed the treatment. Patient admits to spending time for her grandaugther, who was sick with an ear infection and coughing. Patient denies any fevers, chills, chest pain, shortness of breath, headaches, dizziness, vision changes, hearing changes, ear discharges, lacerations inside the mouth or throat, n/v/d/c, back pain, rash, bleeding or weight loss. 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 Meds: carvedilol, amlodipine, phoslo, multvitamins Throughout Hospital Course: Patient is a 53 year old female with pmhx of HTN, asthma, CKD on HD () that comes to the ED for 3 days of jaw and neck stiffiness and pain. Patient had CT scan of neck which was unremarkable. Nephrology was consulted due to patient being an HD patient. ENT was consulted for bilateral swelling near mouth. Patient's vitals are stable, she is able to breathe without difficulty, eat and swallow without difficulty, talking with ease. Echo was ordered no endocarditis. Bilateral mouth swelling ENT consulted- Dr. Gallego- recommendations appreciated Neck soft tissue CT - unremarkable EKG - unremarkable Echo - EF 65; diastolic filling pressures normal; LA- dilated; Aortic valve- leaflets normal, excursion normal; no shunt; trace pericardial effusion Blood cultures pending 1x dose of multiple ABX Afebrile; no leukocytosis Neck Pain Likely torticollis as patient stated she slept awkwardly because of her right forearm CKD on HD Nephrology Consult: Dr. Orantes- recommendations appreciated Dialysis today due to contrast Phoslo 667 mg po tid [facility] Asthma Currently asymptomatic does not use medications at home HTN Carvedilol 12.5 BID Norvasc 1mg po bid [facility] This is a brief summary of the patient's hospital course. Please review EMR for full record. Discharge Exam - Additional Findings Additional findings: - Constitutional Appears: Non-toxic, No Acute Distress - Head Exam Head Exam: NORMAL INSPECTION, NORMOCEPHALIC Additional comments: - Eye Exam Eye Exam: EOMI, Normal appearance. absent: Nystagmus, Scleral icterus - ENT Exam ENT Exam: Mucous Membranes Moist - Neck Exam Neck Exam: Normal Inspection. absent: Full ROM, Tenderness - Respiratory Exam Respiratory Exam: Clear to Ausculation Bilateral, NORMAL BREATHING PATTERN. absent: Rales, Rhonchi, Wheezes - Cardiovascular Exam Cardiovascular Exam: REGULAR RHYTHM, +S1, +S2. absent: Tachycardia - GI/Abdominal Exam GI & Abdominal Exam: Soft, Normal Bowel Sounds. absent: Distended, Firm, Guarding, Rigid, Tenderness - Extremities Exam Extremities Exam: Normal Inspection. absent: Calf Tenderness, Pedal Edema Additional comments: audible bruit on right arm left forearm dressed in bandaid Discharge Plan - Follow Up Plan Condition: STABLE Disposition: HOME/ ROUTINE Instructions: Torticollis, Adult Additional Instructions: Patient is to follow up with dentist for routine follow up care. Follow up with ENT for TMJ. Continue with your current medications. Please follow up with your Primary Care Doctor within 1-2 weeks for routine follow up. Referrals: Floyd Gallego MD [Staff Provider] -
[2018-06-18 18:02] VITALS: BP 147/80; PULSE 77; RESP 20; TEMP 99.1; O2SAT 97
== END 2018-06-18 19:45 | disposition home or self-care (01) ==
LOC: C.ER 09:52 → C.3T 19:29
PROVIDERS: ADMIT Internal Medicine; ATTEND Internal Medicine
DX: I12.0 Hypertensive chronic kidney disease with stage 5 chronic kidney disease or end stage renal disease (principal); J44.9 Chronic obstructive pulmonary disease, unspecified; N18.6 End stage renal disease; Z80.3 Family history of malignant neoplasm of breast; Z94.0 Kidney transplant status
CPT/HCPCS: 36415; 70491; 71045; 80053; 85025; 85610; 85651; 85730; 86140; 87040; 87804; 90732; 93005; 93306; 99285; C9113; G0009; G0257; G0378; J0290; J1580; J1644; J3370; Q9967

== ENCOUNTER 2018-11-03 09:34 | Observation (INO) | payer MEDICARE ==
[2018-11-03 09:35] VITALS: BMI 20.9
[2018-11-03] MEDS ORDERED: Morphine 4 MG/ML VIAL ONE (10:30)
[2018-11-03 10:34] LABS: BASO % 0.6 % (0.0-2.0); EOS # 0.1 K/uL (0.0-0.7); EOS % 1.2 % (0.0-4.0); LYMPH # 0.9 K/uL (1.0-4.3); LYMPH % 17.1 % (20.0-40.0); MEAN CORPUSCULAR HEMOGLOBIN 30.6 pg (27.0-31.0); MEAN CORPUSCULAR HGB CONC 32.8 g/dL (33.0-37.0); MEAN PLATELET VOLUME 7.9 fL (7.2-11.7); MONO # 0.4 K/uL (0.0-0.8); MONO % 8.8 % (0.0-10.0); NEUT # 3.6 K/uL (1.8-7.0); NEUT % 72.3 % (50.0-75.0); RBC 3.63 Mil/uL (3.80-5.20); RED CELL DISTRIBUTION WIDTH 18.7 % (11.5-14.5)
[2018-11-03 10:39] LABS: HEMOGLOBIN 11.1 g/dL (11.0-16.0); MEAN CELL VOLUME 93.3 fL (81.0-99.0)
[2018-11-03 10:42] LABS: ALB/GLOB RATIO 1.4 (1.0-2.1); ALBUMIN 4.3 g/dL (3.5-5.0); CALCIUM 8.8 mg/dl (8.6-10.4); URIC ACID 2.1 mg/dL (2.2-7.5)
[2018-11-03 10:47] LABS: INR 1.2; PROTHROMBIN TIME 12.6 SECONDS (9.7-12.2)
--- NOTE | 2018-11-03 11:55 | C.PDOC ---
History Of Present Illness 53 y/o female presents to the ER complaining of pain to the left wrist and hand which has been present for the past few days.Patient states that she lifted heavy package a few days ago. 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 Patient states that she thought that she might have arthritis or carpal tunnel. However, she notes that she began having swelling in her hand yesterday. Her son started to crack her fingers without relief. She notes that she went to dialysis today and she was not able to complete the dialysis because the pain was unbearable.Denies having weakness and numbness. Time Seen by Provider: 11/03/18 09:53 Chief Complaint (Nursing): Upper Extremity Problem/Injury History Per: Patient History/Exam Limitations: no limitations Onset/Duration Of Symptoms: Days Current Symptoms Are (Timing): Still Present Severity: Moderate Past Medical History Reviewed: Historical Data, Nursing Documentation, Vital Signs Vital Signs: Last Vital Signs Temp 98.5 F 11/03/18 09:39 Pulse 79 11/03/18 11:43 Resp 16 11/03/18 11:43 BP 185/93 H 11/03/18 11:43 Pulse Ox 98 11/03/18 11:43 Primary Care Provider: Mario Vaz - Medical History PMH: Anemia, Arthritis, Asthma, HTN, End Stage Renal Disease, Chronic Kidney Disease (on HD) Surgical History: Endoscopy, - [facility] (05/29/18) EXCISION OF R LOW ARM SUBCU/FASCIA, OPEN APPROACH (05/29/18) REMOVAL OF AUTOL SUB FROM UP ART, OPEN APPROACH (05/29/18) Family History: States: No Known Family Hx - Social History Hx Tobacco Use: No Hx Alcohol Use: No Hx Substance Use: No - Immunization History Hx Tetanus Toxoid Vaccination: No Hx Influenza Vaccination: Yes Hx Pneumococcal Vaccination: Yes Review Of Systems Except As Marked, All Systems Reviewed And Found Negative. Musculoskeletal: Positive for: Hand Pain (left hand pain) Neurological: Negative for: Weakness, Numbness Physical Exam - Physical Exam Appears: Non-toxic, No Acute Distress Skin: Normal Color, Warm, Dry, Other (no erythema,warmth, and/or open sores to left hand) Head: Atraumatic, Normacephalic Eye(s): bilateral: Normal Inspection Nose: Normal Oral Mucosa: Moist Neck: Supple Chest: Symmetrical Extremity: Normal ROM, Tenderness (tenderness to left wrist and hand), Swelling (swelling to left hand) Neurological/Psych: Oriented x3, Normal Speech ED Course And Treatment - Laboratory Results Result Diagrams: 11/03/18 10:27 11/03/18 10:27 Lab Results: PT 12.6 SECONDS (9.7-12.2) H 11/03/18 10:27 INR 1.2 11/03/18 10:27 APTT 36.0 SECONDS (21-34) H 11/03/18 10:27 Total Bilirubin 0.7 mg/dL (0.2-1.3) 11/03/18 10:27 AST 42 U/L (14-36) H D 11/03/18 10:27 ALT 31 U/L (9-52) 11/03/18 10:27 Alkaline Phosphatase 108 U/L (38-126) 11/03/18 10:27 Total Protein 7.5 g/dL (6.3-8.3) 11/03/18 10:27 Albumin 4.3 g/dL (3.5-5.0) 11/03/18 10:27 Globulin 3.2 gm/dL (2.2-3.9) 11/03/18 10:27 Albumin/Globulin Ratio 1.4 (1.0-2.1) 11/03/18 10:27 O2 Sat by Pulse Oximetry: 98 (RA) Pulse Ox Interpretation: Normal - Other Rad X-Ray-Left Wrist X-Ray: Viewed By Me, Read By Radiologist Interpretation: Date of service: 11/03/2018. PROCEDURE: Left Wrist Radiographs. . HISTORY: pain/swelling. COMPARISON: None. TECHNIQUE: 4 views obtained. FINDINGS: BONES: Normal. No fracture. JOINTS: Normal. No dislocation. SOFT TISSUES: Normal. OTHER FINDINGS: None. IMPRESSION: Normal left wrist radiographs. X-Ray-Left Hand X-Ray: Viewed By Me, Read By Radiologist Interpretation: PROCEDURE: Left Hand Radiographs. HISTORY: pain/swelling. COMPARISON: None. TECHNIQUE: 3 views obtained. FINDINGS: BONES: Normal. No fracture. JOINTS: Normal. No osteoarthritic changes. SOFT TISSUES: Normal. OTHER FINDINGS: None. IMPRESSION: Normal left hand radiographs. Progress Note: Labs, X-Ray-Left Wrist, X-Ray-Left Hand, and Venous Duplex Up Ext. Lft. ordered. Patient treated with Morphine IV. Surgery consult with . Case was d/w Hospitalist weapons officer who accepted patient MS for observation. Disposition - Disposition Disposition: HOSPITALIZED Disposition Time: 13:54 Condition: FAIR - Clinical Impression Clinical Impression: Pseudoaneurysm, Arm pain - PA / VENEER CLIPPER / Resident Statement MD/DO has reviewed & agrees with the documentation as recorded. - Scribe Statement The provider has reviewed the documentation as recorded by the Scribe [facility] Provider Attestation All medical record entries made by the [facility] were at my direction and personally dictated by me. I have reviewed the chart and agree that the record accurately reflects my personal performance of the history, physical exam, medic al decision making, and the department course for this patient. I have also personally directed, reviewed, and agree with the discharge instructions and disposition. Decision To Admit - Pt Status Changed To: Hospital Disposition Of: Observation - . Bed Request Type: Regular Admitting Physician: Amrit Alex Patient Diagnosis: Arm pain, Pseudoaneurysm
--- NOTE | 2018-11-03 12:46 | RAD ---
Date of service: 11/03/2018 PROCEDURE: Left Wrist Radiographs. HISTORY: pain/swelling COMPARISON: None. TECHNIQUE: 4 views obtained. FINDINGS: BONES: Normal. No fracture. JOINTS: Normal. No dislocation. SOFT TISSUES: Normal. OTHER FINDINGS: None. IMPRESSION: Normal left wrist radiographs.
--- NOTE | 2018-11-03 12:48 | RAD ---
PROCEDURE: Left Hand Radiographs. HISTORY: pain/swelling COMPARISON: None. TECHNIQUE: 3 views obtained. FINDINGS: BONES: Normal. No fracture. JOINTS: Normal. No osteoarthritic changes. SOFT TISSUES: Normal. OTHER FINDINGS: None. IMPRESSION: Normal left hand radiographs.
--- NOTE | 2018-11-03 13:01 | CP.PCM.CON ---
History of Present Illness - History of Present Illness History of Present Illness: Vascular Surgery Consult for [place] Reason for consult: LUE AVF pseudoaneurysm, LUE pain and swelling 53 F with PMH of HTN, End Stage Renal Disease on HD (TTHS), Gout admitted for left arm pain after seeing Dr. Orantes today outpatient. Patient states that earlier this weel she carried a very heavy box. Two days later on Wednesday, she woke up with an intense pain in the left wrist began. She thought it was due to arthritis and she wrapped it with an Chris Bandage. The pain continued to progress until dialysis. While she was receiving dialysis today, pain became excruciating and could not finish dialysis until completion. Patient spoke to Dr. Orantes and he decided that she should come to the hospital. Patient states the pain is located on her left wrist and extends down the wrist to all fingers. Patient onlyt had coffee today. She last ate yesterday when she had sinhala food with shrimp. LUE duplex revealed pseudoaneurysm of AVF in left arm while XRs were negative (see the final reports). Denies fevers, chills, chest pain, sob, n/v, constipation or diarrhea, and dysuria. PMD: Dr. Mario Vaz PMH: Anemia, Arthritis, Asthma, HTN, End Stage Renal Disease on HD (TTHS), Gout PSH: AVF x 2, ligation of AVF, Endoscopy, , multiple angioplasty of LUE, kidney transplant x 2, parathyroidectomy, femoral stent ALL: latex FH: Father-DM, sister-DM, sister- from AIDS, Mom-alcohol abuse, breast CA on both sides of the family Social: quit smoking 23 years ago, smoked 2.5 ppd. Denies alcohol, illicit drugs. 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 Review of Systems - Review of Systems All systems: reviewed and no additional remarkable complaints except (as per HPI) Past Patient History - Infectious Disease Hx of Infectious Diseases: None - Past Medical History & Family History Past Medical History?: Yes - Past Social History Smoking Status: Never Smoked - CARDIAC Hx Hypertension: Yes - PULMONARY Hx Asthma: Yes - NEUROLOGICAL Hx Neurological Disorder: No - HEENT Hx HEENT Problems: No - RENAL Hx Chronic Kidney Disease: Yes (on HD) - ENDOCRINE/METABOLIC Hx Endocrine Disorders: No - HEMATOLOGICAL/ONCOLOGICAL Hx Anemia: Yes - INTEGUMENTARY Hx Dermatological Problems: No - MUSCULOSKELETAL/RHEUMATOLOGICAL Hx Arthritis: Yes - GASTROINTESTINAL Hx Gastrointestinal Disorders: No - GENITOURINARY/GYNECOLOGICAL Hx Genitourinary Disorders: No - PSYCHIATRIC Hx Substance Use: No - SURGICAL HISTORY Hx Surgeries: Yes Hx Kidney Transplant: Yes (x2) Hx Vascular Access Device: Yes (RT arm new - Lt arm old) - ANESTHESIA Hx Anesthesia: Yes Hx Anesthesia Reactions: No Hx Malignant Hyperthermia: No Meds Allergies/Adverse Reactions: Allergies Allergy/AdvReac Type Severity Reaction Status Date / Time latex Allergy Intermediate RASH Verified 11/03/18 09:37 Physical Exam - Constitutional Appears: In Acute Distress (pain) - Head Exam Head Exam: ATRAUMATIC, NORMOCEPHALIC - Eye Exam Eye Exam: EOMI, Normal appearance Pupil Exam: PERRL - ENT Exam ENT Exam: Mucous Membranes Moist - Respiratory Exam Respiratory Exam: NORMAL BREATHING PATTERN - Cardiovascular Exam Cardiovascular Exam: REGULAR RHYTHM - GI/Abdominal Exam GI & Abdominal Exam: Normal Bowel Sounds, Soft. absent: Tenderness - Extremities Exam Extremities exam: Positive for: normal capillary refill, pedal pulses present. Negative for: calf tenderness Additional comments: LUE: wrist pain and swelling, AVF with palpable thrill and audible bruit, TTP on wrist, good 2+ radial and ulnar pulses - Back Exam Back exam: absent: CVA tenderness (L), CVA tenderness (R) - Neurological Exam Neurological exam: Alert, Oriented x3 - Psychiatric Exam Psychiatric exam: Normal Affect, Normal Mood - Skin Skin Exam: Dry, Intact, Warm Results - Vital Signs Recent Vital Signs: Last Vital Signs Temp 98.5 F 11/03/18 09:39 Pulse 79 11/03/18 11:43 Resp 16 11/03/18 11:43 BP 185/93 H 11/03/18 11:43 Pulse Ox 98 11/03/18 11:59 - Labs Result Diagrams: 11/04/18 07:04 11/04/18 07:04 Labs: Laboratory Results - last 24 hr 11/03/18 11/03/18 11/03/18 10:27 10:27 10:27 WBC 5.0 RBC 3.63 L Hgb 11.1 D Hct 33.8 L MCV 93.3 D MCH 30.6 MCHC 32.8 L RDW 18.7 H Plt Count 118 L D MPV 7.9 Neut % (Auto) 72.3 Lymph % (Auto) 17.1 L [place] % (Auto) 8.8 Eos % (Auto) 1.2 Baso % (Auto) 0.6 Neut # (Auto) 3.6 Lymph # (Auto) 0.9 L [place] # (Auto) 0.4 Eos # (Auto) 0.1 Baso # (Auto) 0.0 Differential Comment PT 12.6 H INR 1.2 APTT 36.0 H Sodium 140 Potassium 3.8 Chloride 91 L Carbon Dioxide 36 H Anion Gap 16 BUN 17 Creatinine 4.1 H Est GFR ( Amer) 14 Est GFR (Non-Af Amer) 11 Random Glucose 104 Uric Acid 2.1 L Calcium 8.8 Total Bilirubin 0.7 AST 42 H D ALT 31 Alkaline Phosphatase 108 Total Protein 7.5 Albumin 4.3 Globulin 3.2 Albumin/Globulin Ratio 1.4 Assessment & Plan - Assessment and Plan (Free Text) Assessment: 53 F who presents with left wrist pain Plan: -likely secondary to gout -steroids -No vascular surgical intervention needed at this time -Discussed with Dr. Silvina Schmidt pGY2 - Date & Time Date: 11/03/18 Time: 13:30
--- NOTE | 2018-11-03 14:20 | CP.PCM.HP ---
<Rolando Cho - Last Filed: 11/03/18 17:04> History of Present Illness - History of Present Illness History of Present Illness: Medicine H&P for Dr. Alex's service CC: left arm pain HPI: 53 yo female w/ PMH of HTN, asthma, ESRD on HD (T-TH-S) admitted for left arm pain after seeing Dr. Orantes today outpatient. Patient states this past Wednesday she carried a very heavy box full of pots and pans. On Wednesday, when she woke up her pain in the left wrist began to feel really bad. She thought it was due to arthritis and she wrapped it with an Chris Bandage. However, the pain continued to progress until she saw Dr. Orantes today outpatient and he decided that she should come to the hospital. Patient states the pain is located on her left wrist and extends down the wrist to all fingers. Patient's pain is primarily located on the left wrist region. States she had [place] food with shrimp mostly yesterday. Denies fevers, chills, chest pain, sob, n/v, constipation or diarrhea, and dysuria. PMD: Dr. Mario Vaz PMH: ESRD x 2 kidney transplants, arthritis, HTN, asthma, scoliosis Med: Plavix, ASA, Carvedilol, Calcitriol, Phoslo, Percocet all at unknown dosages. Amlodipine recently stopped All: Latex - unknown reaction PSxHx: Kidney transplants (1998, 2008), 1985, Parathyroidectomy, Femoral stent FamHx: Father-DM, sister-DM, sister- from AIDS, Mom-alcohol abuse, breast CA on both sides of the family SocHx: quit smoking 23 years ago, smoked 2.5 ppd. Denies alcohol, illicit drugs. 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 Proxy: Son John Landis cell: [phone], home: [phone] Full Code Present on Admission - Present on Admission Any Indicators Present on Admission: No Review of Systems - Review of Systems All systems: reviewed and no additional remarkable complaints except Review of Systems: see hpi Past Patient History - Infectious Disease Hx of Infectious Diseases: None - Past Medical History & Family History Past Medical History?: Yes - Past Social History Smoking Status: Never Smoked - CARDIAC Hx Hypertension: Yes - PULMONARY Hx Asthma: Yes - NEUROLOGICAL Hx Neurological Disorder: No - HEENT Hx HEENT Problems: No - RENAL Hx Chronic Kidney Disease: Yes (on HD) - ENDOCRINE/METABOLIC Hx Endocrine Disorders: No - HEMATOLOGICAL/ONCOLOGICAL Hx Anemia: Yes - INTEGUMENTARY Hx Dermatological Problems: No - MUSCULOSKELETAL/RHEUMATOLOGICAL Hx Arthritis: Yes - GASTROINTESTINAL Hx Gastrointestinal Disorders: No - GENITOURINARY/GYNECOLOGICAL Hx Genitourinary Disorders: No - PSYCHIATRIC Hx Substance Use: No - SURGICAL HISTORY Hx Surgeries: Yes Hx Kidney Transplant: Yes (x2) Hx Vascular Access Device: Yes (RT arm new - Lt arm old) - ANESTHESIA Hx Anesthesia: Yes Hx Anesthesia Reactions: No Hx Malignant Hyperthermia: No Meds Allergies/Adverse Reactions: Allergies Allergy/AdvReac Type Severity Reaction Status Date / Time latex Allergy Intermediate RASH Verified 11/03/18 09:37 Physical Exam - Constitutional Appears: In Acute Distress - Head Exam Head Exam: NORMAL INSPECTION, NORMOCEPHALIC - Eye Exam Eye Exam: EOMI, Normal appearance. absent: Nystagmus, Scleral icterus - ENT Exam ENT Exam: Mucous Membranes Moist - Respiratory Exam Respiratory Exam: Clear to Auscultation Bilateral, NORMAL BREATHING PATTERN - Cardiovascular Exam Cardiovascular Exam: REGULAR RHYTHM, +S1, +S2, Systolic Murmur - GI/Abdominal Exam GI & Abdominal Exam: Normal Bowel Sounds, Soft. absent: Diminished Bowel Sounds, Distended, Firm, Guarding, Tenderness - Extremities Exam Extremities exam: Positive for: normal inspection. Negative for: calf tenderness, pedal edema Additional comments: left upper extremity with AVF and palpable thrill 2+ radial pulse - Neurological Exam Neurological exam: Alert, Oriented x3 - Psychiatric Exam Psychiatric exam: Normal Affect, Normal Mood - Skin Skin Exam: Dry, Intact, Normal Color Results - Vital Signs Recent Vital Signs: Last Vital Signs Temp 98.5 F 11/03/18 09:39 Pulse 79 11/03/18 11:43 Resp 16 11/03/18 11:43 BP 185/93 H 11/03/18 11:43 Pulse Ox 98 11/03/18 13:54 - Labs Result Diagrams: 11/03/18 10:27 11/03/18 10:27 Labs: Laboratory Results - last 24 hr 11/03/18 11/03/18 11/03/18 10:27 10:27 10:27 WBC 5.0 RBC 3.63 L Hgb 11.1 D Hct 33.8 L MCV 93.3 D MCH 30.6 MCHC 32.8 L RDW 18.7 H Plt Count 118 L D MPV 7.9 Neut % (Auto) 72.3 Lymph % (Auto) 17.1 L [place] % (Auto) 8.8 Eos % (Auto) 1.2 Baso % (Auto) 0.6 Neut # (Auto) 3.6 Lymph # (Auto) 0.9 L [place] # (Auto) 0.4 Eos # (Auto) 0.1 Baso # (Auto) 0.0 Differential Comment PT 12.6 H INR 1.2 APTT 36.0 H Sodium 140 Potassium 3.8 Chloride 91 L Carbon Dioxide 36 H Anion Gap 16 BUN 17 Creatinine 4.1 H Est GFR ( Amer) 14 Est GFR (Non-Af Amer) 11 Random Glucose 104 Uric Acid 2.1 L Calcium 8.8 Total Bilirubin 0.7 AST 42 H D ALT 31 Alkaline Phosphatase 108 Total Protein 7.5 Albumin 4.3 Globulin 3.2 Albumin/Globulin Ratio 1.4 Assessment & Plan - Assessment and Plan (Free Text) Assessment: 53 yo female w/PMH ESRD x 2 kidney transplants, arthritis, HTN, asthma, scoliosis admitted for wrist pain and HTN urgency. Plan: Left Wrist Pain likely 2/2 gout Hand and Wrist Xray negative for any acute abnormalities uric acid level 2.1; in acute gout attacks patient uric acid levels can be normal or low Morphine 4mg x 1 given in ED, Morphine 2mg x 1 given in ED IV solu-medrol 60mg daily Elevate left upper extremity above heart Ice compresses q6h for 30 minutes at a time Uncontrolled HTN Labetolol 5mg IV x 1 will restart home meds in AM 1x dose of coreg 12.5mg given at 8pm Amlodipine 10mg po q24h Hydralazine 10mg po q6h prn ESRD on HD Nephro Consulted: Dr. Orantes- herber appreciated on - schedule Hx of HTN Amlodipine 10mg po daily Coreg 12.5mg po bid Hx of arthritis steroids please see above GI ppx: Protonix 40mg po daily DVT ppx: heparin 5000 sc q12h PGY-1 Rloando Cho Case d/w Dr. Alex <Amrit Alex - Last Filed: 11/03/18 19:05> Results - Vital Signs Recent Vital Signs: Last Vital Signs Temp 99.0 F 11/03/18 17:12 Pulse 81 11/03/18 17:12 Resp 20 11/03/18 17:12 BP 194/89 H 11/03/18 17:12 Pulse Ox 98 11/03/18 17:12 - Labs Result Diagrams: 11/03/18 10:27 11/03/18 10:27 Labs: Laboratory Results - last 24 hr 11/03/18 11/03/18 11/03/18 10:27 10:27 10:27 WBC 5.0 RBC 3.63 L Hgb 11.1 D Hct 33.8 L MCV 93.3 D MCH 30.6 MCHC 32.8 L RDW 18.7 H Plt Count 118 L D MPV 7.9 Neut % (Auto) 72.3 Lymph % (Auto) 17.1 L [place] % (Auto) 8.8 Eos % (Auto) 1.2 Baso % (Auto) 0.6 Neut # (Auto) 3.6 Lymph # (Auto) 0.9 L [place] # (Auto) 0.4 Eos # (Auto) 0.1 Baso # (Auto) 0.0 Differential Comment PT 12.6 H INR 1.2 APTT 36.0 H Sodium 140 Potassium 3.8 Chloride 91 L Carbon Dioxide 36 H Anion Gap 16 BUN 17 Creatinine 4.1 H Est GFR ( Amer) 14 Est GFR (Non-Af Amer) 11 Random Glucose 104 Uric Acid 2.1 L Calcium 8.8 Total Bilirubin 0.7 AST 42 H D ALT 31 Alkaline Phosphatase 108 Total Protein 7.5 Albumin 4.3 Globulin 3.2 Albumin/Globulin Ratio 1.4 Attending/Attestation - Attestation I have personally seen and examined this patient.: Yes I have fully participated in the care of the patient.: Yes I have reviewed all pertinent clinical information: Yes Notes (Text): 11/03/18 19:04 Patient was seen and examined with Resident Dr. Cho while the patient was in the ER. History, Physical, Assessment and Plan and all orders were gone over with Dr. Cho. Amrit Alex D.O.
[2018-11-03] MEDS ORDERED: Labetalol 5mg/ml (4ml) IVP STA (14:38)
[2018-11-03] MEDS ORDERED: Labetalol 5mg/ml (4ml) ONE ×2 (14:54→15:45)
[2018-11-03] MEDS ORDERED: Labetalol 5mg/ml (4ml) IVP ONE (15:36)
[2018-11-03] MEDS ORDERED: MethylPREDNISolone 40 mg Vial ONE (15:44)
[2018-11-03] MEDS ORDERED: Pantoprazole 40 mg EC Tab PO SCH (15:45)
[2018-11-03] MEDS ORDERED: Pantoprazole 40 mg EC Tab PO ONE (16:28)
[2018-11-03 17:13] VITALS: RESP 20
--- NOTE | 2018-11-03 22:41 | CON ---
DATE: 11/03/2018 HISTORY OF PRESENT ILLNESS: The patient is a 53-year-old woman, who came to the emergency room with severe left wrist pain, difficulty using her hand. The patient has been on dialysis, had problems with her right arm. 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 At present, she could not finish dialysis because of pain in the hand. PHYSICAL EXAMINATION: On examination now, her failed kidney transplant is all the usual thing, but the important thing now, she has a palpable pulse at the wrist. She has good flow through the fistula and I do not see any signs of ischemia. She does have some difficulty opening and closing her hands but there is no evidence of compartment syndrome, compression, or problems of this nature. RECOMMENDATION: The patient be followed. I suspect may be some type of acute arthritis rather than any neurovascular compromise. Matt Cool Jr., MD
[2018-11-04 07:29] LABS: BASO % 0.3 % (0.0-2.0); HEMOGLOBIN 10.2 g/dL (11.0-16.0); LYMPH # 0.6 K/uL (1.0-4.3); LYMPH % 13.5 % (20.0-40.0); MEAN CORPUSCULAR HEMOGLOBIN 31.1 pg (27.0-31.0); MEAN CORPUSCULAR HGB CONC 33.1 g/dL (33.0-37.0); MEAN PLATELET VOLUME 8.7 fL (7.2-11.7); MONO # 0.3 K/uL (0.0-0.8); MONO % 7.5 % (0.0-10.0); NEUT # 3.3 K/uL (1.8-7.0); NEUT % 78.7 % (50.0-75.0); NRBC % 0.1 % (0.0-2.0); RBC 3.29 Mil/uL (3.80-5.20); RED CELL DISTRIBUTION WIDTH 18.1 % (11.5-14.5); WHITE BLOOD COUNT 4.1 K/uL (4.8-10.8)
[2018-11-04 07:45] LABS: INR 1.2; PROTHROMBIN TIME 13.1 SECONDS (9.7-12.2)
[2018-11-04 08:15] VITALS: BP 165/88; PULSE 74; TEMP 98.1; O2SAT 98
[2018-11-04 08:52] LABS: ALB/GLOB RATIO 1.4 (1.0-2.1); ALBUMIN 3.9 g/dL (3.5-5.0); CALCIUM 7.9 mg/dl (8.6-10.4)
--- NOTE | 2018-11-04 09:19 | CP.PCM.DIS ---
<Dayanna Mello - Last Filed: 11/04/18 17:08> Provider - Provider Date of Admission: 11/03/18 13:47 Attending physician: Amrit Alex MD Primary care physician: Татьяна Consults: 11/03/18 12:47 General Surgery Consult Stat Comment: Consulting Provider: Matt Cool Jr. Consulting Physician: Matt Cool Jr. Reason for Consult: pseudoaneurysm of the left AVF, post anastomosis, wrist/hand pain 11/03/18 15:06 Nephrology Consult Routine Comment: Consulting Provider: Indra Orantes Consulting Physician: Indra Orantes Reason for Consult: ESRD on HD T-Th- Time Spent in preparation of Discharge (in minutes): 45 Diagnosis - Discharge Diagnosis (1) Hypertensive urgency Status: Resolved Priority: High (2) Acute gout Status: Acute Priority: High (3) ESRD on dialysis Status: Chronic Priority: Medium Hospital Course - Lab Results Lab Results: Most Recent Lab Values WBC 4.1 K/uL (4.8-10.8) L 11/04/18 07:04 RBC 3.29 Mil/uL (3.80-5.20) L 11/04/18 07:04 Hgb 10.2 g/dL (11.0-16.0) L 11/04/18 07:04 Hct 31.0 % (34.0-47.0) L 11/04/18 07:04 MCV 94.0 fL (81.0-99.0) 11/04/18 07:04 MCH 31.1 pg (27.0-31.0) H 11/04/18 07:04 MCHC 33.1 g/dL (33.0-37.0) 11/04/18 07:04 RDW 18.1 % (11.5-14.5) H 11/04/18 07:04 Plt Count 133 K/uL (130-400) 11/04/18 07:04 MPV 8.7 fL (7.2-11.7) 11/04/18 07:04 Neut % (Auto) 78.7 % (50.0-75.0) H 11/04/18 07:04 Lymph % (Auto) 13.5 % (20.0-40.0) L 11/04/18 07:04 [place] % (Auto) 7.5 % (0.0-10.0) 11/04/18 07:04 Eos % (Auto) 0.0 % (0.0-4.0) 11/04/18 07:04 Baso % (Auto) 0.3 % (0.0-2.0) 11/04/18 07:04 Neut # (Auto) 3.3 K/uL (1.8-7.0) 11/04/18 07:04 Lymph # (Auto) 0.6 K/uL (1.0-4.3) L 11/04/18 07:04 [place] # (Auto) 0.3 K/uL (0.0-0.8) 11/04/18 07:04 Eos # (Auto) 0.0 K/uL (0.0-0.7) 11/04/18 07:04 Baso # (Auto) 0.0 K/uL (0.0-0.2) 11/04/18 07:04 Differential Comment 11/03/18 10:27 PT 13.1 SECONDS (9.7-12.2) H 11/04/18 07:04 INR 1.2 11/04/18 07:04 APTT 32.0 SECONDS (21-34) 11/04/18 07:04 Sodium 135 mmol/L (132-148) 11/04/18 07:04 Potassium 5.5 mmol/L (3.6-5.2) H 11/04/18 07:04 Chloride 92 mmol/L (98-107) L 11/04/18 07:04 Carbon Dioxide 30 mmol/L (22-30) 11/04/18 07:04 Anion Gap 18 (10-20) 11/04/18 07:04 BUN 34 mg/dL (7-17) H 11/04/18 07:04 Creatinine 6.5 mg/dL (0.7-1.2) H 11/04/18 07:04 Est GFR ( Amer) 8 11/04/18 07:04 Est GFR (Non-Af Amer) 7 11/04/18 07:04 Random Glucose 114 mg/dL (65-105) H 11/04/18 07:04 Uric Acid 2.1 mg/dL (2.2-7.5) L 11/03/18 10:27 Calcium 7.9 mg/dl (8.6-10.4) L 11/04/18 07:04 Phosphorus 4.3 mg/dL (2.5-4.5) 11/04/18 07:04 Magnesium 2.0 mg/dL (1.6-2.3) 11/04/18 07:04 Total Bilirubin 0.5 mg/dL (0.2-1.3) 11/04/18 07:04 AST 32 U/L (14-36) 11/04/18 07:04 ALT 26 U/L (9-52) 11/04/18 07:04 Alkaline Phosphatase 77 U/L (38-126) 11/04/18 07:04 Total Protein 6.7 g/dL (6.3-8.3) 11/04/18 07:04 Albumin 3.9 g/dL (3.5-5.0) 11/04/18 07:04 Globulin 2.8 gm/dL (2.2-3.9) 11/04/18 07:04 Albumin/Globulin Ratio 1.4 (1.0-2.1) 11/04/18 07:04 Blood Type O POSITIVE 11/04/18 07:04 Antibody Screen Negative 11/04/18 07:04 - Hospital Course Hospital Course: 53 yo female w/ PMH of HTN, asthma, ESRD on HD (--) admitted for left arm pain after seeing Dr. Orantes today outpatient. Patient states this past Wednesday she carried a very heavy box full of pots and pans. On Wednesday, when she woke up her pain in the left wrist began to feel really bad. She thought it was due to arthritis and she wrapped it with an Chris Bandage. However, the pain continued to progress until she saw Dr. Orantes today outpatient and he decided that she should come to the hospital. Patient states the pain is located on her left wrist and extends down the wrist to all fingers. Patient's pain is primarily located on the left wrist region. States she had ic[place] food with shrimp mostly yesterday. Denies fevers, chills, chest pain, sob, n/v, constipation or diarrhea, and dysuria. Patient was admitted for hypertensive urgency and pain due to acute gout attack of left wrist. X-rays were done of left wrist and hand that did not show any acute fractures. LUE Doppler was negative for DVT. Patient was given morphine, IV steroids, and ice for her wrist. Patient was given IV labetalol and PO hydralazine to control her BP in addition to her home meds of Coreg and Norvasc. Patient's BP gradually resolved. Patient was seen by nephrology, and she will continue regular HD schedule on TTS. Upon discharge, patient's pain was much improved. Her BP was steadily improving. She was discharged on a steroid taper. Discharge Exam - Head Exam Head Exam: NORMAL INSPECTION, NORMOCEPHALIC - Eye Exam Eye Exam: EOMI, Normal appearance, PERRL - ENT Exam ENT Exam: Mucous Membranes Moist - Neck Exam Neck exam: Normal Inspection - Respiratory Exam Respiratory Exam: Clear to PA & Lateral, NORMAL BREATHING PATTERN, UNREMARKABLE - Cardiovascular Exam Cardiovascular Exam: RRR, +S1, +S2 - GI/Abdominal Exam GI & Abdominal Exam: Normal Bowel Sounds, Soft, Unremarkable. absent: Tenderness - Extremities Exam Additional comments: LUE AVF with palpable thrill L wrist mild edema, no erythema, no tenderness to palpation - Neurological Exam Neurological exam: Alert, CN II-XII Intact, Normal Gait, Oriented x3 - Psychiatric Exam Psychiatric exam: Normal Affect, Normal Mood - Skin Skin Exam: Dry, Normal Color, Warm Discharge Plan - Discharge Medications Prescriptions: Fluticasone/Vilanterol 100/25 [Breo Ellipta 100-25 MCG INH] 1 puff IH DAILY 30 Days puff Pantoprazole [Protonix EC Tab] 40 mg PO DAILY #8 ect - Follow Up Plan Condition: GOOD Disposition: HOME/ ROUTINE Patient education suggested?: Yes Instructions: Acute Pain, Adult (DC), Pantoprazole Additional Instructions: Follow-up with your primary care physician, Dr. Vaz, within 1 week of discharge. Resume your dialysis as scheduled- Wednesday, , Wednesday, and continue follow-up with Dr. Orantes. Continue all of your home medications. Aspirin 81 mg daily Plavix 75 mg daily Breo inhaler daily Norvasc 10 mg daily Coreg 12.5 mg twice daily Continue taking statin every other day. Discuss with Dr. Bear at appointment on 11/18. Additionally, you will be prescribed steroids- prednisone 10 mg tab. Take 4 tabs for 2 days, then 3 tabs for 2 days, then 2 tabs for 2 days, then 1 tab for 2 days, and than stop. For the next 8 days while you are taking prednisone, take Pantoprazole 40 mg. Apply ice to you left wrist to help with pain and inflammation. Referrals: Indra Orantes MD [Staff Provider] - <Amrit Alex - Last Filed: 11/04/18 18:56> Provider - Provider Date of Admission: 11/03/18 13:47 Attending physician: Amrit Alex MD Consults: 11/03/18 12:47 General Surgery Consult Stat Comment: Consulting Provider: Matt Cool Jr. Consulting Physician: Matt Cool Jr. Reason for Consult: pseudoaneurysm of the left AVF, post anastomosis, wrist/hand pain 11/03/18 15:06 Nephrology Consult Routine Comment: Consulting Provider: Indra Orantes Consulting Physician: Indra Orantes Reason for Consult: ESRD on HD - [facility] Course - Lab Results Lab Results: Most Recent Lab Values WBC 4.1 K/uL (4.8-10.8) L 11/04/18 07:04 RBC 3.29 Mil/uL (3.80-5.20) L 11/04/18 07:04 Hgb 10.2 g/dL (11.0-16.0) L 11/04/18 07:04 Hct 31.0 % (34.0-47.0) L 11/04/18 07:04 MCV 94.0 fL (81.0-99.0) 11/04/18 07:04 MCH 31.1 pg (27.0-31.0) H 11/04/18 07:04 MCHC 33.1 g/dL (33.0-37.0) 11/04/18 07:04 RDW 18.1 % (11.5-14.5) H 11/04/18 07:04 Plt Count 133 K/uL (130-400) 11/04/18 07:04 MPV 8.7 fL (7.2-11.7) 11/04/18 07:04 Neut % (Auto) 78.7 % (50.0-75.0) H 11/04/18 07:04 Lymph % (Auto) 13.5 % (20.0-40.0) L 11/04/18 07:04 [place] % (Auto) 7.5 % (0.0-10.0) 11/04/18 07:04 Eos % (Auto) 0.0 % (0.0-4.0) 11/04/18 07:04 Baso % (Auto) 0.3 % (0.0-2.0) 11/04/18 07:04 Neut # (Auto) 3.3 K/uL (1.8-7.0) 11/04/18 07:04 Lymph # (Auto) 0.6 K/uL (1.0-4.3) L 11/04/18 07:04 [place] # (Auto) 0.3 K/uL (0.0-0.8) 11/04/18 07:04 Eos # (Auto) 0.0 K/uL (0.0-0.7) 11/04/18 07:04 Baso # (Auto) 0.0 K/uL (0.0-0.2) 11/04/18 07:04 Differential Comment 11/03/18 10:27 PT 13.1 SECONDS (9.7-12.2) H 11/04/18 07:04 INR 1.2 11/04/18 07:04 APTT 32.0 SECONDS (21-34) 11/04/18 07:04 Sodium 135 mmol/L (132-148) 11/04/18 07:04 Potassium 5.5 mmol/L (3.6-5.2) H 11/04/18 07:04 Chloride 92 mmol/L (98-107) L 11/04/18 07:04 Carbon Dioxide 30 mmol/L (22-30) 11/04/18 07:04 Anion Gap 18 (10-20) 11/04/18 07:04 BUN 34 mg/dL (7-17) H 11/04/18 07:04 Creatinine 6.5 mg/dL (0.7-1.2) H 11/04/18 07:04 Est GFR ( Amer) 8 11/04/18 07:04 Est GFR (Non-Af Amer) 7 11/04/18 07:04 Random Glucose 114 mg/dL (65-105) H 11/04/18 07:04 Uric Acid 2.1 mg/dL (2.2-7.5) L 11/03/18 10:27 Calcium 7.9 mg/dl (8.6-10.4) L 11/04/18 07:04 Phosphorus 4.3 mg/dL (2.5-4.5) 11/04/18 07:04 Magnesium 2.0 mg/dL (1.6-2.3) 11/04/18 07:04 Total Bilirubin 0.5 mg/dL (0.2-1.3) 11/04/18 07:04 AST 32 U/L (14-36) 11/04/18 07:04 ALT 26 U/L (9-52) 11/04/18 07:04 Alkaline Phosphatase 77 U/L (38-126) 11/04/18 07:04 Total Protein 6.7 g/dL (6.3-8.3) 11/04/18 07:04 Albumin 3.9 g/dL (3.5-5.0) 11/04/18 07:04 Globulin 2.8 gm/dL (2.2-3.9) 11/04/18 07:04 Albumin/Globulin Ratio 1.4 (1.0-2.1) 11/04/18 07:04 Blood Type O POSITIVE 11/04/18 07:04 Antibody Screen Negative 11/04/18 07:04 Attending/Attestation - Attestation I have personally seen and examined this patient.: Yes I have fully participated in the care of the patient.: Yes I have reviewed all pertinent clinical information, including history, physical exam and plan: Yes Notes (Text): 11/04/18 18:56 Patient was seen and examined at 8:45 AM Care of this patient and discharge instructions were gone over with resident Dr. Mello. Amrit Alex D.O.
--- NOTE | 2018-11-04 13:41 | VASCLAB ---
Date of service: 11/03/2018 PROCEDURE: Left Upper Extremity Venous Duplex Exam HISTORY: Severe pain, worse after HD PRIORS: None. TECHNIQUE: Left upper extremity, internal jugular, subclavian, axillary, brachial, ulnar, radial, basilic and upper cephalic veins were evaluated. Flow was assessed with color Doppler, compressibility, assessment of phasic flow and augmentation response. Report prepared by MARIMAR Turner FINDINGS: LEFT: 1. Internal Jugular: 1.1. Compressibility - Fully compressible: Thrombus - None : Flow - Phasic: Augmentation -Normal: Reflux - None. 2. Subclavian: 2.1. Compressibility - Fully compressible: Thrombus - None : Flow - Phasic: Augmentation -Normal: Reflux - None. 3. Axillary: 3.1. Compressibility - Fully compressible: Thrombus - None : Flow - Phasic: Augmentation -Normal: Reflux - None. 4. Brachial: 4.1. Compressibility - Fully compressible: Thrombus - None: Flow - Phasic: Augmentation -Normal: Reflux - None. 5. Ulnar: 5.1. Not visualized, diminutive caliber. 6. Radial: 6.1. Compressibility - Fully compressible: Thrombus - None: Flow - Phasic: Augmentation - Normal: Reflux - None. 7. Cephalic: 8. Basilic: 8.1. Compressibility - Fully compressible: Thrombus - None: Flow - Phasic: Augmentation -Normal: Reflux - None. OTHER FINDINGS: Incidental Finding: Pseudoaneurysm of the left AV Fistula, after the anastomosis site. Findings were provided to Tonya in the emergency room, at 11:30 a.m. IMPRESSION: Left: No evidence of venous thrombosis of the left upper extremity with excellent venous flow. Normal valve function noted of the left side.
--- NOTE | 2018-11-04 14:22 | CP.PCM.CON ---
History of Present Illness - History of Present Illness History of Present Illness: HPI: 53 yo female w/ PMH of HTN, asthma, ESRD on HD (-) admitted for left arm pain after seeing Dr. Orantes today outpatient. Patient states this past Wednesday she carried a very heavy box full of pots and pans. On Wednesday, when she woke up her pain in the left wrist began to feel really bad. She thought it was due to arthritis and she wrapped it with an Chris Bandage. However, the pain continued to progress until she saw Dr. Orantes today outpatient and he decided that she should come to the hospital. Patient states the pain is located on her left wrist and extends down the wrist to all fingers. Patient's pain is primarily located on the left wrist region. States she had scottish food with shrimp mostly yesterday. Denies fevers, chills, chest pain, sob, n/v, constipation or diarrhea, and dysuria. Likely dx gout as outpt- due to severe pain patient went to ER for eval. Severe wrist pain better with steroids Had full dialysis treatment 11/03 PMD: Dr. Mario Vaz PMH: ESRD x 2 kidney transplants, arthritis, HTN, asthma, scoliosis Med: Plavix, ASA, Carvedilol, Calcitriol, Phoslo, Percocet all at unknown dosages. Amlodipine recently stopped All: Latex - unknown reaction PSxHx: Kidney transplants (1998, 2008), 1985, Parathyroidectomy, Femoral stent FamHx: Father-DM, sister-DM, sister- from AIDS, Mom-alcohol abuse, breast CA on both sides of the family SocHx: quit smoking 23 years ago, smoked 2.5 ppd. Denies alcohol, illicit drugs. 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 Review of Systems - Review of Systems All systems: reviewed and no additional remarkable complaints except - Musculoskeletal Musculoskeletal: Arthralgias, Muscle Cramps, Stiffness Past Patient History - Infectious Disease Hx of Infectious Diseases: None - Past Medical History & Family History Past Medical History?: Yes Past Family History: Reviewed and not pertinent - Past Social History Smoking Status: Never Smoked Chewing Tobacco Use: No Cigar Use: No Alcohol: None Drugs: Denies Home Situation {Lives}: With Family - CARDIAC Hx Hypertension: Yes - PULMONARY Hx Asthma: Yes - NEUROLOGICAL Hx Neurological Disorder: No - HEENT Hx HEENT Problems: No - RENAL Hx Chronic Kidney Disease: Yes (on HD) - ENDOCRINE/METABOLIC Hx Endocrine Disorders: No - HEMATOLOGICAL/ONCOLOGICAL Hx Anemia: Yes - INTEGUMENTARY Hx Dermatological Problems: No - MUSCULOSKELETAL/RHEUMATOLOGICAL Hx Arthritis: Yes - GASTROINTESTINAL Hx Gastrointestinal Disorders: No - GENITOURINARY/GYNECOLOGICAL Hx Genitourinary Disorders: No - PSYCHIATRIC Hx Substance Use: No - SURGICAL HISTORY Hx Surgeries: Yes Hx Kidney Transplant: Yes (x2) Hx Vascular Access Device: Yes (RT arm new - Lt arm old) - ANESTHESIA Hx Anesthesia: Yes Hx Anesthesia Reactions: No Hx Malignant Hyperthermia: No Meds Home Medications: Home Medication List Medication Instructions Recorded Confirmed Type Aspirin [Ecotrin] 81 mg PO DAILY tabec 11/04/18 Rx Clopidogrel [Plavix] 75 mg PO DAILY tab 11/04/18 Rx Fluticasone/Vilanterol 100/25 1 puff IH DAILY 30 Days puff 11/04/18 Rx [Breo Ellipta 100-25 MCG INH] Pantoprazole [Protonix EC Tab] 40 mg PO DAILY #8 ect 11/04/18 Rx amLODIPine [Norvasc] 10 mg PO DAILY tab 11/04/18 Rx Allergies/Adverse Reactions: Allergies Allergy/AdvReac Type Severity Reaction Status Date / Time latex Allergy Intermediate RASH Verified 11/03/18 09:37 - Medications Medications: Current Medications Amlodipine Besylate (Norvasc) 10 mg PO Q24H [facility] Last Admin: 11/03/18 17:22 Dose: 10 mg Aspirin (Ecotrin) 81 mg PO DAILY [facility] Last Admin: 11/04/18 10:15 Dose: 81 mg Carvedilol (Coreg) 12.5 mg PO Q12H [facility] Last Admin: 11/04/18 08:38 Dose: 12.5 mg Clopidogrel Bisulfate (Plavix) 75 mg PO DAILY [facility] Last Admin: 11/04/18 10:14 Dose: 75 mg Famotidine (Pepcid) 20 mg PO DAILY [facility] Last Admin: 11/04/18 10:14 Dose: 20 mg Heparin Sodium (Porcine) (Heparin) 5,000 units SC Q12H [facility] Last Admin: 11/04/18 10:16 Dose: 5,000 units Hydralazine HCl (Apresoline) 10 mg PO Q6H PRN PRN Reason: SBP>160 Last Admin: 11/04/18 10:14 Dose: 10 mg Methylprednisolone (Solu-Medrol) 60 mg IVP Q24H [facility] Last Admin: 11/04/18 08:39 Dose: 60 mg Physical Exam - Constitutional Appears: Non-toxic, No Acute Distress - Head Exam Head Exam: ATRAUMATIC, NORMAL INSPECTION - Neck Exam Neck exam: Positive for: Normal Inspection. Negative for: Tenderness - Respiratory Exam Respiratory Exam: Clear to Auscultation Bilateral, NORMAL BREATHING PATTERN - Cardiovascular Exam Cardiovascular Exam: REGULAR RHYTHM, +S1 - GI/Abdominal Exam GI & Abdominal Exam: Soft. absent: Tenderness - Extremities Exam Extremities exam: Positive for: normal inspection. Negative for: tenderness - Neurological Exam Neurological exam: Alert, CN II-XII Intact - Skin Skin Exam: Dry, Warm Results - Vital Signs Recent Vital Signs: Last Vital Signs Temp 98.1 F 11/04/18 07:00 Pulse 74 11/04/18 07:00 Resp 20 11/04/18 07:00 BP 165/88 H 11/04/18 08:38 Pulse Ox 98 11/04/18 07:00 - Labs Result Diagrams: 11/04/18 07:04 11/04/18 07:04 Labs: Laboratory Results - last 24 hr 11/04/18 11/04/18 11/04/18 07:04 07:04 07:04 WBC 4.1 L RBC 3.29 L Hgb 10.2 L Hct 31.0 L MCV 94.0 MCH 31.1 H MCHC 33.1 RDW 18.1 H Plt Count 133 MPV 8.7 Neut % (Auto) 78.7 H Lymph % (Auto) 13.5 L [place] % (Auto) 7.5 Eos % (Auto) 0.0 Baso % (Auto) 0.3 Neut # (Auto) 3.3 Lymph # (Auto) 0.6 L [place] # (Auto) 0.3 Eos # (Auto) 0.0 Baso # (Auto) 0.0 PT 13.1 H INR 1.2 APTT 32.0 Sodium 135 Potassium 5.5 H Chloride 92 L Carbon Dioxide 30 Anion Gap 18 BUN 34 H Creatinine 6.5 H Est GFR ( Amer) 8 Est GFR (Non-Af Amer) 7 Random Glucose 114 H Calcium 7.9 L Phosphorus 4.3 Magnesium 2.0 Total Bilirubin 0.5 AST 32 ALT 26 Alkaline Phosphatase 77 Total Protein 6.7 Albumin 3.9 Globulin 2.8 Albumin/Globulin Ratio 1.4 Blood Type Antibody Screen 11/04/18 07:04 WBC RBC Hgb Hct MCV MCH MCHC RDW Plt Count MPV Neut % (Auto) Lymph % (Auto) [place] % (Auto) Eos % (Auto) Baso % (Auto) Neut # (Auto) Lymph # (Auto) [place] # (Auto) Eos # (Auto) Baso # (Auto) PT INR APTT Sodium Potassium Chloride Carbon Dioxide Anion Gap BUN Creatinine Est GFR ( Amer) Est GFR (Non-Af Amer) Random Glucose Calcium Phosphorus Magnesium Total Bilirubin AST ALT Alkaline Phosphatase Total Protein Albumin Globulin Albumin/Globulin Ratio Blood Type O POSITIVE Antibody Screen Negative Assessment & Plan (1) ESRD (end stage renal disease) Status: Acute (2) Hypertensive chronic kidney disease with stage 5 chronic kidney disease or end stage renal disease Status: Acute (3) Acute gout Status: Acute (4) Failed kidney transplant Status: Acute - Assessment and Plan (Free Text) Plan: agree with steroids- continue as outpatient Same BP control OK for discharge- can have outpatient dialysis as outpt
== END 2018-11-04 14:50 | disposition home or self-care (01) ==
LOC: C.ER 09:34 → C.3T 13:47
PROVIDERS: ADMIT Family Medicine; ATTEND Family Medicine
DX: T82.868A Thrombosis due to vascular prosthetic devices, implants and grafts, initial encounter (principal); I16.0 Hypertensive urgency; I12.0 Hypertensive chronic kidney disease with stage 5 chronic kidney disease or end stage renal disease; M10.9 Gout, unspecified; N18.6 End stage renal disease; Z87.891 Personal history of nicotine dependence; Z94.0 Kidney transplant status; Z99.2 Dependence on renal dialysis
CPT/HCPCS: 36415; 73110; 73130; 80053; 83735; 84100; 84550; 85025; 85610; 85730; 86850; 86900; 93971; 96372; 96374; 96375; 96376; 99284; G0378; J1644; J2270; J2930